=== PATIENT | female | born 1950 | race Caucasian/White ===

== ENCOUNTER → 2016-11-17 | Outpatient (CLI) | payer OTHER ==
[~2016-11-17] MED LIST: CYAN10002 IM; DIAZ-165 PO; DICL-201 PO; DICY10CA12 PO; EVS60 PO; HYDR-5688 PO; INSPMPHMLG; OMEG10007 PO
[2016-11-17 12:47] LABS: BLOOD UREA NITROGEN 25 mg/dl (7-18); CREATININE 0.98 mg/dl (0.60-1.20); GLUCOSE 233 mg/dl (70-99)
[2016-11-17 12:48] LABS: ALT/SGPT 22 U/L (12-78); AST/SGOT 20 U/L (15-37); BUN/CREATININE RATIO 25.8 (10-20); CALCIUM 9.5 mg/dl (8.5-10.1); CARBON DIOXIDE 31 mmol/L (21-32); CHLORIDE 101 mmol/L (98-107); CHOLESTEROL 229 mg/dl (0-200); POTASSIUM 4.2 mmol/L (3.5-5.1); SODIUM 137 mmol/L (136-145); TRIGLYCERIDES 84 mg/dl (0-150); VERY LOW DENSITY LIPOPROT CALC 17 mg/dl
[2016-11-17 12:50] LABS: ALKALINE PHOSPHATASE 79 U/L (45-117); CHOLESTEROL/HDL RATIO 2.4; HDL CHOLESTEROL 95 mg/dl; LDL CHOLESTEROL CALCULATED 117 mg/dl
[2016-11-17 12:54] LABS: ESTIMATED AVERAGE GLUCOSE 194 mg/dl; HA1C FLAG Normal (Normal)
== END | disposition home or self-care (01) ==
LOC: C.LAB1850 09:36
DX: E10.9 Type 1 diabetes mellitus without complications (principal)

== ENCOUNTER 2018-11-25 20:48 | Inpatient (IN) ==
[2018-11-25] MEDS ORDERED: SODIUM CHLORIDE 0.9% 1000ML 2,000 ML IV ONE (21:00)
[2018-11-25] MEDS ORDERED: FAMOTIDINE 20MG IV PUSH 20 MG/5 ML SYR IV STA (21:00)
[2018-11-25] MEDS ORDERED: ONDANSETRON INJ 2 MG/ML 2 ML VIAL IV STA (21:01)
[2018-11-25 21:34] LABS: iSTAT Hemoglobin 13.9 g/dl (12.0-16.0); iSTAT Ionized Calcium 1.03 mmol/l (1.12-1.32); iSTAT Potassium 4.7 mEq/L (3.3-5.0)
[2018-11-25 23:39] LABS: Hematocrit (blood only) 35.9 % (37-47); Hemoglobin 11.9 g/dL (12.0-16.0); Mean Corpuscular Hemoglobin 29.6 pg (25-34); Mean Corpuscular Hgb Conc 33.1 g/dL (32-36); Mean Corpuscular Volume 89.3 fL (80-100); Mean Platelet Volume 10.6 fL (7.4-10.4); Platelet Count 241 K/uL (130-400); RDW Coefficient of Variation 14.1 % (11.5-14.5); RDW Standard Deviation 46.2 fL (36.4-46.3); Red Blood Count 4.02 M/uL (4.2-5.4); White Blood Count 15.56 K/uL (4.8-10.8)
[2018-11-25 23:44] LABS: Base Excess VBG -6.2 mEq/L; HCO3 VBG 20 mmol/L; PCO2 VBG 43 mmHg (38-50); PO2 VBG 34 mmHg; pH VBG 7.29 (7.36-7.41)
--- NOTE | 2018-11-25 23:44 | Emergency Department Note ---
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 She notes that she was fine this morning. She states that he has diarrhea. She states that she has type 1 diabetes. She notes that her blood glucose level is 450 currently. She reports that it has been 4 hours since she last gave herself insulin. She denies any chest pain, blood in her urine, or shortness of breath. She notes that has a history of myocardial infarction and peptic ulcer. Home Medications Home Medications Medication Instructions Recorded Confirmed Type cyanocobalamin (vit B-12) 1,000 1,000 mcg SQ .COMPLEX 11/05/18 11/25/18 History mcg/mL injection solution diazepam 5 mg tablet 5 mg PO .COMPLEX PRN 11/05/18 11/25/18 History dicyclomine 10 mg capsule 10 mg PO DAILY cap 11/05/18 11/25/18 History hydrocodone 5 mg-acetaminophen 300 1 tab PO .COMPLEX PRN 11/05/18 11/25/18 History mg tablet insulin aspart U- 100 100 unit/mL See Rx Instructions SQ .COMPLEX 11/05/18 11/25/18 History subcutaneous solution omega-3 fatty acids 1,000 mg 1,000 mg PO DAILY 11/05/18 11/25/18 History capsule raloxifene 60 mg tablet 60 mg PO DAILY 11/05/18 11/25/18 History carisoprodol [Soma] 0 mg PO UD PRN 11/25/18 11/25/18 History diclofenac sodium 50 mg PO UD PRN 11/25/18 11/25/18 History Allergies Allergy/AdvReac Type Severity Reaction Status Date / Time Penicillins Allergy Unknown . Verified 11/25/18 23:04 promethazine Allergy Unknown . Verified 11/25/18 23:04 Sulfa (Sulfonamide AdvReac Unknown RASH,VOMITI Verified 11/25/18 23:04 Antibiotics) NG Past Med/Surg History Medical History Type 1 diabetes (Chronic) Social History Preferred Language: [place] Zeal[place] Feels Safe at Home: Yes Smoking Status: Never smoker Review of Systems See HPI for pertinent positives & negatives. and A total of 10 systems reviewed and were otherwise negative Physical Exam Vital Signs Vital Signs - 24 hr 11/25/18 20:52 11/25/18 20:55 11/25/18 21:00 Sepsis Recent Fever Within 48 Hours No Sepsis New/Unexplained Change in Mental Status No Sepsis Action Taken by Nursing No Action Required Pulse Rate 99 H 98 H Pulse Rate [Bilateral Apical] Respiratory Rate 14 20 Blood Pressure 102/55 L 102/55 L Blood Pressure [Left Arm] Blood Pressure Mean 70 70 Blood Pressure Mean [Left Arm] Pulse Oximetry 98 100 Oxygen Delivery Method Room Air Room Air Room Air 11/25/18 22:00 11/25/18 23:35 11/26/18 00:45 Sepsis Recent Fever Within 48 Hours Sepsis New/Unexplained Change in Mental Status Sepsis Action Taken by Nursing Pulse Rate 94 H Pulse Rate [Bilateral Apical] 101 H 106 H Respiratory Rate 15 18 20 Blood Pressure Blood Pressure [Left Arm] 98/55 L 95/45 L Blood Pressure Mean Blood Pressure Mean [Left Arm] 69 61 Pulse Oximetry 98 95 96 Oxygen Delivery Method Room Air Room Air Room Air 11/26/18 02:09 Sepsis Recent Fever Within 48 Hours Sepsis New/Unexplained Change in Mental Status Sepsis Action Taken by Nursing Pulse Rate Pulse Rate [Bilateral Apical] 118 H Respiratory Rate 20 Blood Pressure Blood Pressure [Left Arm] 99/48 L Blood Pressure Mean Blood Pressure Mean [Left Arm] 65 Pulse Oximetry 96 Oxygen Delivery Method Room Air GENERAL: Awake, alert, uncomfortable-appearing, in no distress HENT: Normocephalic, atraumatic. Oropharynx with dry mucous membranes and otherwise unremarkable. EYES: Normal conjunctiva. Sclera non-icteric. NECK: Supple. No nuchal rigidity. FROM. No JVD. RESPIRATORY: CTAB.. CARDIAC: Regular rate, normal rhythm. Extremities warm and well perfused. Pulses equal. ABDOMEN: Mild epigastric discomfort, without discrete tenderness. Soft, non- distended. No rebound or guarding. No masses. RECTAL: Deferred. MUSCULOSKELETAL: Chest examination reveals no tenderness. The back is symmetrical on inspection without obvious abnormality. There is no CVA tenderness to palpation. No joint edema. LOWER EXTREMITIES: Calves are equal size bilaterally and non-tender. No edema. No discoloration. NEURO: Normal sensorium. No sensory or motor deficits noted. SKIN: No rash or jaundice noted. Procedures EJ/Peripheral Line Arm R: Time Out Performed: Yes Skin Cleansed in Sterile Fashion: Yes Size (gauge): 20 IV Secured and Dressing Applied: Yes Patient Tolerated Procedure: well Additional Comments: Performed under dynamic US guidance. Difficult access requiring 5 attempts. Course 2053: The patient was evaluated in room B12B, and a complete history and physical examination were performed. 2339: Case was discussed with Dr. Hercules, [facility] hospitalist, who will evaluate the patient for admission. Administered Medications Ioversol (Optiray 320 100ml) 94 ml IV ONCE PRN PRN Reason: Interaction Checking Stop: 11/30/18 01:13 Last Admin: 11/26/18 01:14 Dose: 94 ml Documented by: [id number] Discontinued Medications Sodium Chloride (Nss 1000ml) 2,000 mls @ 999 mls/hr IV .Q2H1M ONE Stop: 11/25/18 23:00 Last Infusion: 11/26/18 00:16 Dose: 0 mls/hr Documented by: [id number] Admin: 11/25/18 21:22 Dose: 999 mls/hr Documented by: [id number] Famotidine (Pepcid 20mg Iv Push) 20 mg in 5 mls @ 2.5 mls/min IV NOW STA Stop: 11/25/18 21:01 Last Admin: 11/25/18 21:23 Dose: 2.5 mls/min Documented by: [id number] Sodium Chloride (Nss 1000ml) 1,000 mls @ 250 mls/hr IV .Q4H MALINA Stop: 12/25/18 23:44 Last Admin: 11/26/18 00:12 Dose: 250 mls/hr Documented by: [id number] Potassium Chloride (K Thom / Wtr) 10 meq in 100 mls @ 100 mls/hr IV Q2H MALINA Last Infusion: 11/26/18 01:24 Dose: 0 mls/hr Documented by: [id number] Admin: 11/26/18 00:11 Dose: 100 mls/hr Documented by: [id number] Prochlorperazine (Compazine) 2 mls @ 1 mls/min IV ONE ONE Stop: 11/26/18 00:15 Last Admin: 11/26/18 00:22 Dose: 1 mls/min Documented by: [id number] Sodium Chloride (Nss 1000ml) 1,000 mls @ 999 mls/hr IV .Q1H1M ONE Stop: 11/26/18 01:53 Last Admin: 11/26/18 01:54 Dose: 999 mls/hr Documented by: [id number] Calcium Gluconate 1,000 mg/ (Sodium Chloride) 60 mls @ 240 mls/hr IV NOW STA Stop: 11/26/18 01:08 Last Infusion: 11/26/18 02:05 Dose: 0 mls/hr Documented by: [id number] Admin: 11/26/18 01:21 Dose: 240 mls/hr Documented by: [id number] Ondansetron HCl (Zofran) 4 mg IV NOW STA Stop: 11/25/18 21:02 Last Admin: 11/25/18 21:23 Dose: 4 mg Documented by: [id number] Medical Decision Making Differential Diagnosis Differential diagnosis: Etiologies such as gastroenteritis, food borne illness, infections, appendicitis, diverticulitis, inflammatory bowel disease, obstruct ion, GI bleed, biliary pathology, as well as others were entertained. Medical Records Attestation: I reviewed the patient's medical records. Home Medications Current Medication List: was personally reviewed by me Laboratory Data Attestation: I reviewed the patient's lab results. Result diagrams: 11/25/18 23:27 11/25/18 23:27 Lab Results 11/25/18 11/25/18 11/25/18 Range/Units 21:20 23:27 23:27 WBC 15.56 H (4.8-10.8) K/uL RBC 4.02 L (4.2-5.4) M/uL Hgb 11.9 L (12.0-16.0) g/dL POC Hgb 13.9 (12.0-16.0) g/dl Hct 35.9 L (37-47) % POC Hct 41 (37-47) % MCV 89.3 (80-100) fL MCH 29.6 (25-34) pg MCHC 33.1 (32-36) g/dL RDW Std Deviation 46.2 (36.4-46.3) fL RDW Coeff of Maria Del Carmen 14.1 (11.5-14.5) % Plt Count 241 (130-400) K/uL MPV 10.6 H (7.4-10.4) fL Immature Gran % (Auto) 0.3 % Neut % (Auto) 89.7 % Lymph % (Auto) 4.4 % Polk % (Auto) 5.5 % Eos % (Auto) 0.0 % Baso % (Auto) 0.1 % Reticulocyte % (Auto) 1.7 (0.5-2.0) % Immature Gran # (Auto) 0.05 H (0.00-0.02) K/uL Neut # (Auto) 13.96 H (1.4-6.5) K/uL Lymph # (Auto) 0.68 L (1.2-3.4) K/uL Polk # (Auto) 0.86 H (0.11-0.59) K/uL Eos # (Auto) 0.00 (0-0.5) K/uL Baso # (Auto) 0.01 (0-0.2) K/uL Reticulocyte # 0.07 (0.02-0.10) 10^6/uL Absolute Nucleated RBC 0.00 (0-0) K/uL Nucleated RBC % (auto) 0.0 % VBG pH (7.36-7.41) VBG pCO2 (38-50) mmHg VBG pO2 mmHg VBG HCO3 mmol/L VBG O2 Saturation % VBG Base Excess mEq/L Barometric Pressure mm/Hg POC Sodium 134 L (135-144) mEq/L Sodium 138 (136-145) mmol/L POC Potassium 4.7 (3.3-5.0) mEq/L Potassium 4.8 (3.5-5.1) mmol/L POC Chloride 98 L (101-112) mEq/L Chloride 104 (98-107) mmol/L Carbon Dioxide 21 (21-32) mmol/L POC Total CO2 25 (24-31) mEq/l Anion Gap 13.0 H (3-11) POC Anion Gap 18.0 (16-25) mmol/L POC BUN 42 H (7-18) mg/dl BUN 33 H (7-18) mg/dl Creatinine 1.19 (0.6-1.2) mg/dl POC Creatinine 1.0 (0.6-1.3) mg/dl Est Cr Clr Drug Dosing Not Reportable Est GFR ( Amer) 55.1 Est GFR (Non-Af Amer) 47.5 BUN/Creatinine Ratio 27.5 H (10-20) Glucose 465 H* (70-99) mg/dl POC Glucose (other) 478 H* (70-99) mg/dl Calcium 8.4 L (8.5-10.1) mg/dl POC Ioniz Calcium Wallace 1.03 L (1.12-1.32) mmol/l Phosphorus 5.0 H (2.5-4.9) mg/dl Magnesium 2.3 (1.8-2.4) mg/dl Iron 90 (35-150) mcg/dl TIBC 319 (250-450) mcg/dl Transferrin 255 (200-360) mg/dl Ferritin 24.9 (8-388) ng/ml Total Bilirubin 0.7 (0.2-1) mg/dl Direct Bilirubin 0.3 H (0-0.2) mg/dl AST 13 L (15-37) U/L ALT 14 (12-78) U/L Alkaline Phosphatase 82 (45-117) U/L Troponin I < 0.015 (0-0.045) ng/ml Total Protein 6.2 L (6.4-8.2) gm/dl Albumin 3.4 (3.4-5.0) gm/dl Globulin 2.8 (2.5-4.0) gm/dl Albumin/Globulin Ratio 1.2 (0.9-2) Lipase 44 L (73-393) U/L Beta-Hydroxybutyric Acd 14.39 H (0.2-2.81) mg/dl Procalcitonin (0-0.5) ng/ml TSH 0.407 (0.300-4.500) uIu/ml Urine Color Urine Appearance (Clear) Urine pH (4.5-7.5) Ur Specific Brandon (1.000-1.030) Urine Protein (Negative) Urine Glucose (UA) (Negative) Urine Ketones (Negative) Urine Blood (Negative) Urine Nitrite (Negative) Urine Bilirubin (Negative) Urine Urobilinogen (Negative) Ur Leukocyte Esterase (Negative) Urine WBC (Auto) (0-5) /hpf Urine RBC (Auto) (0-4) /hpf U Hyaline Cast (Auto) (0-5) /lpf U Epithel Cells (Auto) (0-5) /lpf Urine Bacteria (Auto) (Negative) 11/25/18 11/25/18 11/26/18 Range/Units 23:27 23:28 01:20 WBC (4.8-10.8) K/uL RBC (4.2-5.4) M/uL Hgb (12.0-16.0) g/dL POC Hgb (12.0-16.0) g/dl Hct (37-47) % POC Hct (37-47) % MCV (80-100) fL MCH (25-34) pg MCHC (32-36) g/dL RDW Std Deviation (36.4-46.3) fL RDW Coeff of Maria Del Carmen (11.5-14.5) % Plt Count (130-400) K/uL MPV (7.4-10.4) fL Immature Gran % (Auto) % Neut % (Auto) % Lymph % (Auto) % Polk % (Auto) % Eos % (Auto) % Baso % (Auto) % Reticulocyte % (Auto) (0.5-2.0) % Immature Gran # (Auto) (0.00-0.02) K/uL Neut # (Auto) (1.4-6.5) K/uL Lymph # (Auto) (1.2-3.4) K/uL Polk # (Auto) (0.11-0.59) K/uL Eos # (Auto) (0-0.5) K/uL Baso # (Auto) (0-0.2) K/uL Reticulocyte # (0.02-0.10) 10^6/uL Absolute Nucleated RBC (0-0) K/uL Nucleated RBC % (auto) % VBG pH 7.29 L (7.36-7.41) VBG pCO2 43 (38-50) mmHg VBG pO2 34 mmHg VBG HCO3 20 mmol/L VBG O2 Saturation < 60.0 % VBG Base Excess -6.2 mEq/L Barometric Pressure 735.4 mm/Hg POC Sodium (135-144) mEq/L Sodium (136-145) mmol/L POC Potassium (3.3-5.0) mEq/L Potassium (3.5-5.1) mmol/L POC Chloride (101-112) mEq/L Chloride (98-107) mmol/L Carbon Dioxide (21-32) mmol/L POC Total CO2 (24-31) mEq/l Anion Gap (3-11) POC Anion Gap (16-25) mmol/L POC BUN (7-18) mg/dl BUN (7-18) mg/dl Creatinine (0.6-1.2) mg/dl POC Creatinine (0.6-1.3) mg/dl Est Cr Clr Drug Dosing Est GFR ( Amer) Est GFR (Non-Af Amer) BUN/Creatinine Ratio (10-20) Glucose (70-99) mg/dl POC Glucose (other) (70-99) mg/dl Calcium (8.5-10.1) mg/dl POC Ioniz Calcium Wallace (1.12-1.32) mmol/l Phosphorus (2.5-4.9) mg/dl Magnesium (1.8-2.4) mg/dl Iron (35-150) mcg/dl TIBC (250-450) mcg/dl Transferrin (200-360) mg/dl Ferritin (8-388) ng/ml Total Bilirubin (0.2-1) mg/dl Direct Bilirubin (0-0.2) mg/dl AST (15-37) U/L ALT (12-78) U/L Alkaline Phosphatase (45-117) U/L Troponin I (0-0.045) ng/ml Total Protein (6.4-8.2) gm/dl Albumin (3.4-5.0) gm/dl Globulin (2.5-4.0) gm/dl Albumin/Globulin Ratio (0.9-2) Lipase (73-393) U/L Beta-Hydroxybutyric Acd (0.2-2.81) mg/dl Procalcitonin 18.67 H (0-0.5) ng/ml TSH (0.300-4.500) uIu/ml Urine Color Yellow Urine Appearance Clear (Clear) Urine pH 5.0 (4.5-7.5) Ur Specific Brandon 1.024 (1.000-1.030) Urine Protein Negative (Negative) Urine Glucose (UA) 3+ H (Negative) Urine Ketones 2+ H (Negative) Urine Blood Negative (Negative) Urine Nitrite Negative (Negative) Urine Bilirubin Negative (Negative) Urine Urobilinogen Negative (Negative) Ur Leukocyte Esterase Trace H (Negative) Urine WBC (Auto) 10-30 H (0-5) /hpf Urine RBC (Auto) 0-4 (0-4) /hpf U Hyaline Cast (Auto) 0 (0-5) /lpf U Epithel Cells (Auto) 20-30 H (0-5) /lpf Urine Bacteria (Auto) Negative (Negative) ECG Data Attestation: I personally reviewed and interpreted this ECG as follows: Indication: vomiting Rate (beats per minute): 90 Rhythm: normal sinus Findings: + LAFB and + nonspecific-ST abn; no acute ischemic change Comparison ECG Date: from (09/22/15) Change: no significant change Blood Pressure Blood Pressure Findings: Low blood pressure MDM Narrative The patient is a pleasant 68-year-old woman with a past medical history of IDDM 1 with insulin pump who presents emergency department with nausea vomiting diarrhea that began today with subsequent elevation in her blood sugars and ketones in her urine per hpi. On arrival patient is uncomfortable but no acute distress, afebrile with HR 90s with BP 90-100s/50s and stable. The patient appears clinically dry. EKG with left anterior fascicular block similar to prior EKGs and otherwise without overt acute ischemia. Chest x-ray without acute process per my preliminary review. She was very difficult to obtain lab work and IV access initially however i-STAT chemistry was obtained and did not demonstrate any metabolic acidosis, despite elevated glucose in the 400s. Ultimately IV access obtained after repeated attempts with ultrasound-guided peripheral IV. W BC 15.5, nonspecific. H/H 11.9/35.9. VBG with slight acidemia with pH of 7.29. Full lab chemistry still pending. However, patient does feel some improvement after initial hydration with 2 L of normal saline Zofran and Pepcid. However she does feel still slightly nauseated and uncomfortable about the possibility of going home. Given the patient's symptoms and near DKA reasonable to admit the patient for further management. Lab chemistry resulting with glucose still 400s despite patient providing herself with 8 unit bolus from her pump. Bicarb 21 and Agap 13. BHB 14.3. Patient ordered from NS with KCl. Case was discussed with Dr. Hercules, [facility] hospitalist, who will evaluate the patient for admission. Insulin therapy per admitting team pending further discussion with patient. Impression & Plan DKA (diabetic ketoacidoses), Gastroenteritis Discharge Plan Visit Data Chief Complaint: Illness ED Provider: Darío Pitt Discharge Problem: DKA (diabetic ketoacidoses), Gastroenteritis Discharge Instructions Interventions: ED Discharge Assessment Last Done: 11/26/18 02:18 Forms Stand Alone Forms: My [facility] Medical Prescriptions Prescriptions: No Action dicyclomine 10 mg capsule 10 mg PO DAILY RF: 0 raloxifene [Evista] 60 mg tablet 60 mg PO DAILY RF: 0 hydrocodone-acetaminophen [Vicodin] 5-300 mg tablet 1 tab PO .COMPLEX PRN (Reason: Pain) RF: 0 diazepam 5 mg tablet 5 mg PO .COMPLEX PRN (Reason: Anxiety) RF: 0 omega-3 fatty acids 1,000 mg capsule 1,000 mg PO DAILY RF: 0 cyanocobalamin (vitamin B-12) 1,000 mcg/mL solution 1,000 mcg SQ .COMPLEX RF: 0 Novolog U-100 Insulin aspart 100 unit/mL solution See Patient Comments SQ .COMPLEX RF: 0 diclofenac sodium 50 mg Tablet,Delayed Release (Dr/Ec) 50 mg PO UD PRN (Reason: Pain) RF: 0 carisoprodol [Soma] 250 mg Tablet PO UD PRN (Reason: MUSCLE SPASMS) RF: 0 Referrals Referrals: Hawa Vera DO [Primary Care Provider] - Discharge Problem: DKA (diabetic ketoacidoses) Qualifiers: Diabetes mellitus type: type 1 Diabetes mellitus complication detail: without coma Qualified Code(s): E10.10 - Type 1 diabetes mellitus with ketoacidosis without coma The scribe's documentation has been prepared under my direction and personally reviewed by me in its entirety. I confirm that the note above accurately reflects all work, treatment, procedures, and medical decision making performed by me.
[2018-11-25] MEDS ORDERED: POTASSIUM CHLORIDE / WTR 10 MEQ/100 ML PLCT IV SCH (23:45)
[2018-11-25] MEDS ORDERED: SODIUM CHLORIDE 0.9% 1000ML 1,000 ML IV SCH (23:45)
[2018-11-25 23:49] LABS: Oxygen Saturation VBG < 60.0 %
[2018-11-26 00:05] LABS: Basophils # (auto) 0.01 K/uL (0-0.2); Basophils % (auto) 0.1 %; Immature Granulocytes # (auto) 0.05 K/uL (0.00-0.02); Immature Granulocytes % (auto) 0.3 %; Lymphocytes # (auto) 0.68 K/uL (1.2-3.4); Lymphocytes % (auto) 4.4 %; Monocytes # (auto) 0.86 K/uL (0.11-0.59); Monocytes % (auto) 5.5 %; Neutrophils # (auto) 13.96 K/uL (1.4-6.5); Neutrophils % (auto) 89.7 %
[2018-11-26 00:07] LABS: Reticulocyte % 1.7 % (0.5-2.0); Reticulocytes # 0.07 10^6/uL (0.02-0.10)
[2018-11-26 00:08] LABS: Alanine Aminotransferase 14 U/L (12-78); Albumin Globulin Ratio 1.2 (0.9-2); Albumin Level 3.4 gm/dl (3.4-5.0); Alkaline Phosphatase 82 U/L (45-117); Aspartate Aminotransferase 13 U/L (15-37); BUN Creatinine Ratio 27.5 (10-20); Bilirubin Direct 0.3 mg/dl (0-0.2); Bilirubin,Total 0.7 mg/dl (0.2-1); Blood Urea Nitrogen 33 mg/dl (7-18); Calcium 8.4 mg/dl (8.5-10.1); Carbon Dioxide 21 mmol/L (21-32); Chloride 104 mmol/L (98-107); Est GFR (African American) 55.1; Est GFR (Non-African American) 47.5; Globulin 2.8 gm/dl (2.5-4.0); Glucose 465 mg/dl (70-99); Lipase 44 U/L (73-393); Magnesium 2.3 mg/dl (1.8-2.4); Potassium 4.8 mmol/L (3.5-5.1); Sodium 138 mmol/L (136-145); Total Protein 6.2 gm/dl (6.4-8.2); Troponin I < 0.015 ng/ml (0-0.045)
[2018-11-26] MEDS ORDERED: PROCHLORPERAZINE 2 ML IV ONE (00:14)
[2018-11-26] MEDS ORDERED: FAMOTIDINE 20MG/5ML IV PUSH IV STA (00:19)
[2018-11-26 00:24] LABS: Beta-Hydroxybutyrate 14.39 mg/dl (0.2-2.81); Ferritin 24.9 ng/ml (8-388); Iron 90 mcg/dl (35-150); Thyroid Stimulating Hormone 0.407 uIu/ml (0.300-4.500); Total Iron Binding Capacity 319 mcg/dl (250-450); Transferrin 255 mg/dl (200-360)
[2018-11-26] MEDS ORDERED: FAMOTIDINE 20MG/5ML IV PUSH IV ONE (00:32)
[2018-11-26] MEDS ORDERED: SODIUM CHLORIDE 0.9% 1000ML 1,000 ML IV ONE ×3 (00:53→07:04)
[2018-11-26] MEDS ORDERED: CALCIUM GLUCONATE 10% 1,000 MG in SODIUM CHLORIDE 0.9% 50 ML IV STA (00:54)
[2018-11-26] MEDS ORDERED: IOVERSOL 100ml IV PRN (01:14)
--- NOTE | 2018-11-26 01:43 | History & Physical Report ---
Date of Service November 26, 2018 Assessment & Plan (1) Hypotension: Secondary to hypovolemia secondary to acute gastroenteritis ? Bowel ischemia on CT, possible sepsis given elevated procalcitonin Hyperglycemic crisis secondary to above DM1 on insulin pump Reasonable control as of recent outpatient hemoglobin A1c of 8 last October 2018 CAD as per records, not on aspirin prophylaxis as per patient preference secondary to PUD Esophagitis on CT Episodic anemia, hx pernicious anemia as per records Medical telemetry IVF Cultures, check lactic acid Ertapenem for now for possible bowel sepsis N.p.o. for now Surgery consult RE abdominal pain, mesenteric edema on CT Pharmacy glycemic control consult Famotidine for esophagitis Anemia work-up (of note patient is a Yarsani) DVT prophylaxis Lovenox subcu Full code Total critical care time was 50 minutes. History of Present Illness Chief Complaint: Abdominal pain Primary Care Provider: Hawa Vera DO History obtained from patient and records. Medical history significant for DM1 on insulin pump, CAD as per records, PUD as per records, pernicious anemia as per records. Recent confinement September 2015 for mild DKA. After an oatmeal breakfast this morning, patient noted burning epigastric discomfort followed by nausea, bilious emesis. Nonbloody loose stools. No ch est pain, no S OB, no cough. No fever, some chills. Possible sick contacts. BSG is at home later noted to be 400s. 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 Verified 11/25/18 23:04 promethazine Allergy Unknown . Verified 11/25/18 23:04 Sulfa (Sulfonamide AdvReac Unknown RASH,VOMITI Verified 11/25/18 23:04 Antibiotics) NG Home Medications Home Medications Medication Instructions Recorded Confirmed Type cyanocobalamin (vit B-12) 1,000 1,000 mcg SQ .COMPLEX 11/05/18 11/25/18 History mcg/mL injection solution diazepam 5 mg tablet 5 mg PO .COMPLEX 11/05/18 11/25/18 History dicyclomine 10 mg capsule 10 mg PO DAILY cap 11/05/18 11/25/18 History hydrocodone 5 mg-acetaminophen 300 1 tab PO .COMPLEX PRN 11/05/18 11/25/18 History mg tablet insulin aspart U- 100 100 unit/mL See Rx Instructions SQ .COMPLEX 11/05/18 11/25/18 History subcutaneous solution omega-3 fatty acids 1,000 mg 1,000 mg PO DAILY 11/05/18 11/25/18 History capsule raloxifene 60 mg tablet 60 mg PO DAILY 11/05/18 11/25/18 History carisoprodol [Soma] 0 mg PO UD PRN 11/25/18 11/25/18 History diclofenac sodium 50 mg PO UD PRN 11/25/18 11/25/18 History Past Med/Surg History Medical History Type 1 diabetes (Chronic) H/O: hysterectomy Surgical History History of appendectomy Hx of cholecystectomy Social History Preferred Language: Bel[place] Communication Ability: Effective Coding Educator Required: No Beliefs That Will Affect Care: Congregation Congregation Beliefs: Yarsani Current Living Situation: Alone Other Information That Helps Us Care for You: No Feels Safe at Home: Yes Safety Concerns: Feels Safe At This Time Smoking Status: Never smoker Hx Alcohol Use: No Hx Substance Use: No Review of Systems Review of Systems: As per HPI, all 10 systems reviewed, all other ROS negative Physical Exam Physical Exam: GENERAL: Slightly uncomfortable, wane, speaking in a very low voice, no respiratory distress SKIN: Head neck arms noted to be tanned, warm HEENT: [place] palpebral conjunctivae, no ptosis, chronic jaw asymmetry, dry buccal mucosa NECK : Supple, no tenderness CHEST : CTA, no tenderness HEART : Tachycardic, no obvious murmurs ABDOMEN: Some distention, central abdominal tenderness RECTAL : Intact sphincter, yellow stool (FOBT negative) EXTREMITIES : No LE swelling/tenderness, no other conspicuous deformities noted NEUROLOGIC : Coherent, chronic lower facial symmetry more prominent during patient speech , no other gross focality Results & Data Vital Signs (Past 12 Hours) Vital Signs Pulse Pulse Resp BP BP Pulse Ox 11/26/18 00:45 106 H 20 95/45 L 96 11/25/18 23:35 101 H 18 98/55 L 95 11/25/18 22:00 94 H 15 98 11/25/18 20:55 98 H 20 102/55 L 100 11/25/18 20:52 99 H 14 102/55 L 98 Laboratory Results Laboratory Results WBC 15.56 K/uL (4.8-10.8) H 11/25/18 23: RBC 4.02 M/uL (4.2-5.4) L 11/25/18 23:27 Hgb 11.9 g/dL (12.0-16.0) L 11/25/18 23: POC Hgb 13.9 g/dl (12.0-16.0) 11/25/18 21:20 Hct 35.9 % (37-47) L 11/25/18 23: POC Hct 41 % (37-47) 11/25/18 21:20 MCV 89.3 fL (80-100) 11/25/18 23: MCH 29.6 pg (25-34) 11/25/18 23: MCHC 33.1 g/dL (32-36) 11/25/18 23: RDW Std Deviation 46.2 fL (36.4-46.3) 11/25/18 23: RDW Coeff of [place] Carm[place] 14.1 % (11.5-14.5) 11/25/18: Plt Count 241 K/uL (130-400) 11/25/18 23: MPV 10.6 fL (7.4-10.4) H 11/25/18 23:27 Immature Gran % (Auto) 0.3 % 11/25/18 23: Neut % (Auto) 89.7 % 11/25/18 23: Lymph % (Auto) 4.4 % 11/25/18 23: [place] % (Auto) 5.5 % 11/25/18 23:27 Eos % (Auto) 0.0 % 11/25/18 23: Baso % (Auto) 0.1 % 11/25/18: Reticulocyte % (Auto) 1.7 % (0.5-2.0) 11/25/18 23: Immature Gran # (Auto) 0.05 K/uL (0.00-0.02) H 11/25/18 23: Neut # (Auto) 13.96 K/uL (1.4-6.5) H 11/25/18 23: Lymph # (Auto) 0.68 K/uL (1.2-3.4) L 11/25/18: [place] # (Auto) 0.86 K/uL (0.11-0.59) H 11/25/18: Eos # (Auto) 0.00 K/uL (0-0.5) 11/25/18: Baso # (Auto) 0.01 K/uL (0-0.2) 11/25/18: Reticulocyte # 0.07 10^6/uL (0.02-0.10) 11/25/18: Absolute Nucleated RBC 0.00 K/uL (0-0) 11/25/18 Nucleated RBC % (auto) 0.0 % 11/25/18 VBG pH 7.29 (7.36-7.41) L 11/25/18: VBG pCO2 43 mmHg (38-50) 11/25/18: VBG pO2 34 mmHg 11/25/18: VBG HCO3 20 mmol/L 11/25/18: VBG O2 Saturation < 60.0 % 11/25/18 VBG Base Excess -6.2 mEq/L 11/25/18 Barometric Pressure 735.4 mm/Hg 11/25/18: POC Sodium 134 mEq/L (135-144) L 11/25/18 21:20 Sodium 138 mmol/L (136-145) 11/25/18 23: POC Potassium 4.7 mEq/L (3.3-5.0) 11/25/18 21:20 Potassium 4.8 mmol/L (3.5-5.1) 11/25/18: POC Chloride 98 mEq/L (101-112) L 11/25/18 21:20 Chloride 104 mmol/L (98-107) 11/25/18: Carbon Dioxide 21 mmol/L (21-32) 11/25/18: POC Total CO2 25 mEq/l (24-31) 11/25/18 21:20 Anion Gap 13.0 (3-11) H 11/25/18: POC Anion Gap 18.0 mmol/L (16-25) 11/25/18 21:20 POC BUN 42 mg/dl (7-18) H 11/25/18 21:20 BUN 33 mg/dl (7-18) H 11/25/18 23:27 Creatinine 1.19 mg/dl (0.6-1.2) 11/25/18 23:27 POC Creatinine 1.0 mg/dl (0.6-1.3) 11/25/18 21:20 Est Cr Clr Drug Dosing Not Reportable 11/25/18 23:27 Est GFR ( Amer) 55.1 11/25/18 23:27 Est GFR (Non-Af Amer) 47.5 11/25/18 23:27 BUN/Creatinine Ratio 27.5 (10-20) H 11/25/18 23:27 Glucose 465 mg/dl (70-99) H* 11/25/18 23:27 POC Glucose (other) 478 mg/dl (70-99) H* 11/25/18 21:20 Calcium 8.4 mg/dl (8.5-10.1) L 11/25/18 23:27 POC Ioniz Calcium Wallace 1.03 mmol/l (1.12-1.32) L 11/25/18 21:20 Phosphorus 5.0 mg/dl (2.5-4.9) H 11/25/18 23:27 Magnesium 2.3 mg/dl (1.8-2.4) 11/25/18 23:27 Iron 90 mcg/dl (35-150) 11/25/18 23:27 TIBC 319 mcg/dl (250-450) 11/25/18 23:27 Transferrin 255 mg/dl (200-360) 11/25/18 23:27 Ferritin 24.9 ng/ml (8-388) 11/25/18 23:27 Total Bilirubin 0.7 mg/dl (0.2-1) 11/25/18 23:27 Direct Bilirubin 0.3 mg/dl (0-0.2) H 11/25/18 23:27 AST 13 U/L (15-37) L 11/25/18 23:27 ALT 14 U/L (12-78) 11/25/18 23:27 Alkaline Phosphatase 82 U/L (45-117) 11/25/18 23:27 Troponin I < 0.015 ng/ml (0-0.045) 11/25/18 23: Total Protein 6.2 gm/dl (6.4-8.2) L 11/25/18 23: Albumin 3.4 gm/dl (3.4-5.0) 11/25/18: Globulin 2.8 gm/dl (2.5-4.0) 11/25/18 23: Albumin/Globulin Ratio 1.2 (0.9-2) 11/25/18 23: Lipase 44 U/L (73-393) L 11/25/18 23: Beta-Hydroxybutyric Acd 14.39 mg/dl (0.2-2.81) H 11/25/18: TSH 0.407 uIu/ml (0.300-4.500) 11/25/18 23:27 Diagnostic Findings Chest x-ray as per my interpretation cardiomegaly EKG as per my interpretation : Rate 90, LAD, LAFB, T wave flattening lateral leads CT abdomen pelvis initial read hepatic steatosis. Status post hysterectomy. No adnexal masses. Small amount of free fluid pelvis nonspecific. Mild mesenteric edema and fat stranding throughout the abdomen pelvis of unknown etiology. No abscess normal appendix. No bowel wall thickening or obstruction. Distal esophagitis. Diffuse demineralization of bones with trabecular thickening in the pelvic bones/posterior elements of lower spine possible Paget's disease.
[2018-11-26] MEDS ORDERED: SODIUM CHLORIDE 0.9% 1000ML 1,000 ML IV SCH (02:01)
[2018-11-26 02:15] LABS: Appearance Urine Clear (Clear); Bacteria Urine Automated Negative (Negative); Bilirubin Urine Negative (Negative); Blood Urine Negative (Negative); Cast Urine Automated 0 /lpf (0-5); Color Urine Yellow; Epithelial Cell Urine Auto 20-30 /lpf (0-5); Glucose Urine UA 3+ (Negative); Ketones Urine 2+ (Negative); Leukocyte Esterase Urine Trace (Negative); Nitrite Urine Negative (Negative); Protein Urine Negative (Negative); RBC Urine Automated 0-4 /hpf (0-4); Specific Gravity Urine 1.024 (1.000-1.030); Urobilinogen Urine Negative (Negative)
[2018-11-26] MEDS ORDERED: PHARMACY GLYCEMIC MGMT CONSULT PRN (02:47)
[2018-11-26] MEDS ORDERED: HYDROmorphone INJ 0.5 MG/0.5 ML SYR IV PRN (02:52)
[2018-11-26] MEDS ORDERED: ACETAMINOPHEN 325 MG TAB PO PRN (02:52)
[2018-11-26] MEDS ORDERED: LORazepam 0.25 MG/0.5 ML VIAL IV PRN (02:52)
[2018-11-26] MEDS ORDERED: NITROGLYCERIN SL 0.4 MG/TAB TAB SL PRN (02:52)
[2018-11-26] MEDS ORDERED: ERTAPENEM SODIUM 1,000 MG in SODIUM CHLORIDE 0.9% 50 ML IV SCH (03:00)
[2018-11-26] MEDS ORDERED: HYDROCODONE/ACETAMOPHEN 5/325MG TAB PO PRN (03:00)
--- NOTE | 2018-11-26 03:01 | Surgery Consultation ---
Date of Consultation November 26, 2018 Assessment & Plan (1) DKA (diabetic ketoacidoses): Plan as per medicine Present on Admission?: Yes (2) Abdominal pain: 68 yr old diabetic women with abdominal pain/ nausea / vomiting/ diarrhea as well as friends with similar symptoms. Mild hypotension/ tachycardia c/w volume depletion. Leukocytosis. No evidence of acute abdomen on exam. CT scan shows mild mesenteric edema - nonspecific finding which can be seen with multiple etiologies. Would treat conservatively for now with IVF resuscitation, management of diabetic ketoacidosis, npo/ bowel rest, IV antibiotics emperically. Should symptoms fail to improve, could consider CT angio to get a better look at mesenteric vessels as mesenteric vessel thrombosis can be a cause of mesenteric edema. Present on Admission?: Yes History of Present Illness Reason for Consultation: abdominal pain Requesting Physician: Jean-Claude Ray Attending Physician: Jean-Claude Bojorquez History of Present Illness 68 yr old diabetic women who presents with generalized abdominal pain since 11 am. 6-7/ 10 in intensity, cramping, burning, aching waves of pain, associated with diarrhea, nausea and vomiting. Initially vomited old food (oatmeal) but then progressed to bilious. No fevers. Never had any similar symptoms prior. No exacerbating or relieving factors. Came to ER and CT scan showed mild mesenteric edema. Currently, pain better on medications. Sugars were elevated to the 400s. Notes that a few friends of her also were sick with something similar. While they did not eat the same thing, they had all been together recently. Allergies Allergy/AdvReac Type Severity Reaction Status Date / Time Penicillins Allergy Unknown . Verified 11/25/18 23:04 promethazine Allergy Unknown . Verified 11/25/18 23:04 Sulfa (Sulfonamide AdvReac Unknown RASH,VOMITI Verified 11/25/18 23:04 Antibiotics) NG Home Medications Home Medications Medication Instructions Recorded Confirmed Type cyanocobalamin (vit B-12) 1,000 1,000 mcg SQ .COMPLEX 11/05/18 11/25/18 History mcg/mL injection solution diazepam 5 mg tablet 5 mg PO .COMPLEX PRN 11/05/18 11/25/18 History dicyclomine 10 mg capsule 10 mg PO DAILY cap 11/05/18 11/25/18 History hydrocodone 5 mg-acetaminophen 300 1 tab PO .COMPLEX PRN 11/05/18 11/25/18 History mg tablet insulin aspart U- 100 100 unit/mL See Rx Instructions SQ .COMPLEX 11/05/18 11/25/18 History subcutaneous solution omega-3 fatty acids 1,000 mg 1,000 mg PO DAILY 11/05/18 11/25/18 History capsule raloxifene 60 mg tablet 60 mg PO DAILY 11/05/18 11/25/18 History carisoprodol [Soma] 0 mg PO UD PRN 11/25/18 11/25/18 History diclofenac sodium 50 mg PO UD PRN 11/25/18 11/25/18 History Patient History Medical History Type 1 diabetes (Chronic) H/O: hysterectomy Surgical History History of appendectomy Hx of cholecystectomy Social History Preferred Language: Divehi Feels Safe at Home: Yes Smoking Status: Never smoker Review of Systems Review of Systems: All systems reviewed & are unremarkable except as noted in HPI & below Physical Exam Constitutional: WD/WN, vitals as above tachycardic and mild hypotension ENMT: external ear and nose normal, oropharynx normal Neck: trachea midline Respiratory: normal respiratory effort, lungs clear to auscultation Cardiovascular: Rate/Rhythm: regular rhythm and + tachycardic Heart Sounds: no murmur Gastrointestinal (Abdomen): Inspection/Auscultation: abdomen normal to inspection and normal bowel sounds Percussion/Palpation: + abdomen tender (mild) and abdomen soft; no guarding, no hepatomegaly, no splenomegaly and no hernia well healed incisions from prior procedures Neurologic: moves all extremities Psychiatric: A+Ox3, euthymic affect Results & Data Vital Signs (Past 12 Hours) Vital Signs Pulse Pulse Resp BP BP Pulse Ox 11/26/18 02:09 118 H 20 99/48 L 96 11/26/18 00:45 106 H 20 95/45 L 96 11/25/18 23:35 101 H 18 98/55 L 95 11/25/18 22:00 94 H 15 98 11/25/18 20:55 98 H 20 102/55 L 100 11/25/18 20:52 99 H 14 102/55 L [address] 15.56, H/H normal glucose 465 PO4 5.0 LFTs, lipase OK Diagnostic Findings CT scan reviewed / stat read reviewed: no sign of obstruction with normal bowel gas pattern, no free air, there is mild mesenteric edema. On my exam, celiac, sma appear patent. no obvious thrombosis seen. (1) DKA (diabetic ketoacidoses) Diabetes mellitus complication detail: without coma Diabetes mellitus type: type 1 Qualified Code(s): E10.10 - Type 1 diabetes mellitus with ketoacidosis without coma
[2018-11-26] MEDS ORDERED: INSULIN PROTOCOL GOAL RANGE ONE (03:02)
[2018-11-26] MEDS ORDERED: MODERATE STRESS LEVEL ONE (03:02)
[2018-11-26] MEDS ORDERED: CARBOHYDRATES FOR HYPOGLYCEMIA PO PRN (03:15)
[2018-11-26] MEDS ORDERED: GLUCAGON FOR INJ 1 MG VIAL IM PRN (03:15)
[2018-11-26] MEDS ORDERED: GLUCOSE 10 TABS/TUBE PO PRN (03:15)
[2018-11-26] MEDS ORDERED: DEXTROSE 50% 50 ML SYRINGE IV PRN (03:15)
[2018-11-26] MEDS ORDERED: INSULIN HUMAN REGULAR IV BOLUS 2 UNITS in SYRINGE 0 ML IV ONE (03:15)
[2018-11-26] MEDS ORDERED: GLUCOSE 40% GEL 15 GM TUBE PO PRN (03:15)
[2018-11-26] MEDS ORDERED: D5W AND LACTATED RINGERS 1,000 ML IV PRN ×2 (03:30)
[2018-11-26] MEDS: INSULIN REGULAR 250 UNITS in SODIUM CHLORIDE 0.9% 247.5 ML IV SCH (03:51)
--- NOTE | 2018-11-26 05:40 | XRay Report ---
XR chest 1V portable CLINICAL HISTORY: 68 years-old Female presenting with Chest Pain. TECHNIQUE: Portable upright AP view of the chest was obtained. COMPARISON: 09/22/2015. FINDINGS: Atherosclerosis of the aortic arch. Cardiac silhouette mildly enlarged. No focal opacity. No large ef fusion or pneumothorax. Osteopenia suspected. Upper abdomen normal. IMPRESSION: 1. Mild cardiomegaly. No other convincing evidence of acute cardiopulmonary disease. Electronically signed by: Ron Gaitan M.D. 11/26/2018 5:39 AM
[2018-11-26 06:13] LABS: Basophils # (auto) 0.02 K/uL (0-0.2); Basophils % (auto) 0.1 %; Eosinophils # (auto) 0.01 K/uL (0-0.5); Eosinophils % (auto) 0.1 %; Hematocrit (blood only) 32.4 % (37-47); Hemoglobin 10.7 g/dL (12.0-16.0); Immature Granulocytes % (auto) 0.6 %; Lymphocytes # (auto) 1.12 K/uL (1.2-3.4); Lymphocytes % (auto) 6.4 %; Mean Corpuscular Volume 90.8 fL (80-100); Mean Platelet Volume 10.4 fL (7.4-10.4); Monocytes # (auto) 1.07 K/uL (0.11-0.59); Monocytes % (auto) 6.1 %; Neutrophils # (auto) 15.31 K/uL (1.4-6.5); Neutrophils % (auto) 86.7 %; Platelet Count 222 K/uL (130-400); RDW Coefficient of Variation 14.3 % (11.5-14.5); RDW Standard Deviation 47.4 fL (36.4-46.3); Red Blood Count 3.57 M/uL (4.2-5.4); Reticulocyte % 1.6 % (0.5-2.0); Reticulocytes # 0.06 10^6/uL (0.02-0.10); White Blood Count 17.63 K/uL (4.8-10.8)
--- NOTE | 2018-11-26 06:22 | CT Scan Report ---
CT abd pelvis IV con only CLINICAL HISTORY: 68 years-old Female presenting with abd pain. TECHNIQUE: Multidetector CT of the abdomen and pelvis was performed after the administration of intra venous contrast. IV contrast: 94 mL of Optiray 320. One or more dose lowering techniques were used co nsistent with the principles of ALARA (as low as reasonably achievable), including automatic exposure control, mA or kV adjustment to individual patient size, and/or use of iterative reconstruction. COMPARISON: 08/10/2013. CT DOSE (mGy.cm): The estimated cumulative dose is 315.21 mGy.cm. FINDINGS: [place] topogram: Unremarkable. Lung bases: Normal heart size. No pericardial or pleural effusion. Minimal dependent changes likely a telectasis. Liver: Normal morphology. Density suggestive of hepatic steatosis. No focal lesion. Patent hepatic va sculature. Biliary: No intrahepatic or extrahepatic biliary ductal dilatation. Gallbladder surgically absent. Pancreas: Mild parenchymal atrophy. Spleen: Normal. Splenule noted. Adrenal glands: Normal. Kidneys and ureters: Normal. No hydronephrosis. Bladder: Incompletely evaluated secondary to underdistention. Pelvic organs: Uterus surgically absent. No adnexal masses. Bowel: Normal appendix. No bowel obstruction. Small hiatal hernia. Peritoneal cavity: Small free fluid in the pelvis. No free intraperitoneal gas. Lymph nodes: No enlarged lymph nodes in the abdomen or pelvis. Vasculature: Aorta and IVC patent and normal in caliber. Abdominal wall: Small fat-containing umbilical hernia. Musculoskeletal: Osteopenia. Coarsened trabecular appearance may relate to osteopenia or, less likely , indicate developing Paget's disease. IMPRESSION: 1. Hepatic steatosis. Correlate with liver function tests to exclude steatohepatitis as a cause for abdominal pain. 2. Small hiatal hernia. 3. Small free fluid in the pelvis may be physiologic. 4. Osteopenia. Electronically signed by: Ron Gaitan M.D. 11/26/2018 6:20 AM
[2018-11-26 06:52] LABS: BUN Creatinine Ratio 22.6 (10-20); Creatinine Clr Calc Pharmacy 33.9 ml/min; Est GFR (African American) 40.7; Est GFR (Non-African American) 35.1; Phosphorus 3.9 mg/dl (2.5-4.9); Potassium 4.6 mmol/L (3.5-5.1)
[2018-11-26 06:54] LABS: Ferritin 39.8 ng/ml (8-388)
--- NOTE | 2018-11-26 07:05 | Hospitalist Progress Note ---
Date of Service November 26, 2018 Subjective Made aware by RN around 7 AM of SBP dropped to the 70s. Decreased responsiveness as per RN. Lactic acid 5 as per RN. AP Septic shock Rule out cardiac dysfunction ICU transfer for possible pressor Rx IVF bolus Track lactic acid Broaden antibiotic coverage to Imipenem and Vancomycin Continue n.p.o. status Based on TTE RE hypotension Dr. Wilson (surgeon on-call) notified of developments via [employer] text message. Patient sister, Ms. Priscilla Quiñones updated of developments over the phone. (Contact numbers # [phone].) Results & Data Vital Signs (Past 12 Hours) Vital Signs Temp Pulse Pulse Resp BP BP Pulse Ox 11/26/18 02:52 37.2 C 119 H 78 16 105/65 99 11/26/18 02:09 118 H 20 99/48 L 96 11/26/18 00:45 106 H 20 95/45 L 96 11/25/18 23:35 101 H 18 98/55 L 95 11/25/18 22:00 94 H 15 98 11/25/18 20:55 98 H 20 102/55 L 100 11/25/18 20:52 99 H 14 102/55 L 98
[2018-11-26 07:11] LABS: Beta-Hydroxybutyrate 15.06 mg/dl (0.2-2.81)
[2018-11-26] MEDS: LACTATED RINGER'S 1,000 ML IV SCH ×4 (08:30→12:57)
[2018-11-26] MEDS: INSULIN ASPART 100 UNITS/ML 3 ML PEN SC SCH ×4 (08:33→22:44)
[2018-11-26] MEDS ORDERED: ERTAPENEM CONSULT ACTIVE PRN (09:00)
[2018-11-26] MEDS ORDERED: diazePAM 5 MG TABLET PO SCH ×2 (09:00→21:00)
[2018-11-26] MEDS ORDERED: VANCOMYCIN CONSULT ACTIVE PRN (09:00)
[2018-11-26] MEDS: FAMOTIDINE 20 MG in SYRINGE 3 ML IV SCH ×2 (09:03→20:55)
[2018-11-26] MEDS ORDERED: IMIPENEM/CILASTATIN CONSULT ACTIVE PRN (09:05)
[2018-11-26] MEDS ORDERED: VANCOMYCIN HCL 1,750 MG in SODIUM CHLORIDE 0.9% 500 ML IV STA (09:07)
--- NOTE | 2018-11-26 09:28 | Pharmacy Report ---
Pharmacy Abx Dose Short Note - Date of Service November 26, 2018 - Assessment & Plan Assessment 68 year old F receiving IV Vancomycin and Primaxin for treatment of sepsis secondary to acute gastroenteritis Day # 1 of antimicrobial therapy. * Originally started on Invanz 1g IV daily, but coverage broadened this AM to Primaxin and Vancomycin as patient transferred to ICU for septic shock * ID was consulted; has not evaluated patient yet * Patient appears to be in SHARDA - sCr was 1.19 mg/dL upon admission, now incr' to 1.53 mg/dL. Therefore, will dose Vancomycin prn based on random levels until renal function stabilizes. Plan Vancomycin * Give Vancomycin 1750mg (~25mg/kg) IV x 1 as loading dose only * Goal trough level for GI : 15 to 20 mcg/mL * Random level ordered for: 11/27/18 with AM labs to guide next dose Primaxin * Target dose = 500mg IV q6 * Initiate Primaxin 300mg IV q6 for CrCl 30-59 mL/min Pharmacy will continue to follow and will adjust dose/frequency as necessary. Thank you.
[2018-11-26] MEDS: IMIPENEM/CILASTATIN SODIUM 300 MG in DEXTROSE 5% 100 ML IV SCH ×3 (09:39→20:55)
--- NOTE | 2018-11-26 09:50 | Surgery Progress Note ---
Date of Service November 26, 2018 Assessment & Plan (1) Abdominal pain: Abdominal pain has resolved Lactate and white count noted Abdominal exam is completely benign Etiology of abdominal pain is not completely clear I doubt ischemic bowel at this time We will continue to follow Subjective Notes and chart reviewed Patient was transferred to the intensive care unit with hypotension Vital signs are now stable after fluid resuscitation Denies abdominal pain today Occasional nausea but no vomiting Physical Exam Gastrointestinal (Abdomen): Inspection/Auscultation: normal bowel sounds; abdomen not distended Percussion/Palpation: abdomen soft; abdomen nontender Results & Data Vital Signs (Past 12 Hours) Vital Signs Temp Pulse Pulse Resp BP BP Pulse Ox 11/26/18 08:31 36.7 C 99 H 21 94/40 L 96 11/26/18 07:30 106 H 11/26/18 07:06 37.0 C 104 H 18 77/46 L 95 11/26/18 02:52 37.2 C 119 H 78 16 105/65 99 11/26/18 02:09 118 H 20 99/48 L 96 11/26/18 00:45 106 H 20 95/45 L 96 11/25/18 23:35 101 H 18 98/55 L 95 11/25/18 22:00 94 H 15 98 Laboratory Results 11/26/18 11/26/18 11/26/18 Range/Units 08:30 07:04 06:00 WBC (4.8-10.8) K/uL RBC (4.2-5.4) M/uL Hgb (12.0-16.0) g/dL POC Hgb (12.0-16.0) g/dl Hct (37-47) % POC Hct (37-47) % MCV (80-100) fL MCH (25-34) pg MCHC (32-36) g/dL RDW Std Deviation (36.4-46.3) fL RDW Coeff of Maria Del Carmen (11.5-14.5) % Plt Count (130-400) K/uL MPV (7.4-10.4) fL Immature Gran % (Auto) % Neut % (Auto) % Lymph % (Auto) % Preston % (Auto) % Eos % (Auto) % Baso % (Auto) % Reticulocyte % (Auto) (0.5-2.0) % Immature Gran # (Auto) (0.00-0.02) K/uL Neut # (Auto) (1.4-6.5) K/uL Lymph # (Auto) (1.2-3.4) K/uL Preston # (Auto) (0.11-0.59) K/uL Eos # (Auto) (0-0.5) K/uL Baso # (Auto) (0-0.2) K/uL Reticulocyte # (0.02-0.10) 10^6/uL Absolute Nucleated RBC (0-0) K/uL Nucleated RBC % (auto) % VBG pH (7.36-7.41) VBG pCO2 (38-50) mmHg VBG pO2 mmHg VBG HCO3 mmol/L VBG O2 Saturation % VBG Base Excess mEq/L Barometric Pressure mm/Hg POC Sodium (135-144) mEq/L Sodium (136-145) mmol/L POC Potassium (3.3-5.0) mEq/L Potassium (3.5-5.1) mmol/L POC Chloride (101-112) mEq/L Chloride (98-107) mmol/L Carbon Dioxide (21-32) mmol/L POC Total CO2 (24-31) mEq/l Anion Gap (3-11) POC Anion Gap (16-25) mmol/L POC BUN (7-18) mg/dl BUN (7-18) mg/dl Creatinine (0.6-1.2) mg/dl POC Creatinine (0.6-1.3) mg/dl Est Cr Clr Drug Dosing Est GFR ( Amer) Est GFR (Non-Af Amer) BUN/Creatinine Ratio (10-20) Glucose (70-99) mg/dl POC Glucose 425 H* 414 H* (70-99) POC Glucose (other) (70-99) mg/dl Lactate (0.4-2.0) mmol/L Calcium (8.5-10.1) mg/dl POC Ioniz Calcium Wallace (1.12-1.32) mmol/l Phosphorus (2.5-4.9) mg/dl Magnesium (1.8-2.4) mg/dl Iron (35-150) mcg/dl TIBC (250-450) mcg/dl Transferrin (200-360) mg/dl Ferritin (8-388) ng/ml Total Bilirubin (0.2-1) mg/dl Direct Bilirubin (0-0.2) mg/dl AST (15-37) U/L ALT (12-78) U/L Alkaline Phosphatase (45-117) U/L Troponin I (0-0.045) ng/ml Total Protein (6.4-8.2) gm/dl Albumin (3.4-5.0) gm/dl Globulin (2.5-4.0) gm/dl Albumin/Globulin Ratio (0.9-2) Lipase (73-393) U/L Vitamin B12 Folate Beta-Hydroxybutyric Acd (0.2-2.81) mg/dl Procalcitonin (0-0.5) ng/ml TSH (0.300-4.500) uIu/ml Urine Color Urine Appearance (Clear) Urine pH (4.5-7.5) Ur Specific [place] (1.000-1.030) Urine Protein (Negative) Urine Glucose (UA) (Negative) Urine Ketones (Negative) Urine Blood (Negative) Urine Nitrite (Negative) Urine Bilirubin (Negative) Urine Urobilinogen (Negative) Ur Leukocyte Esterase (Negative) Urine WBC (Auto) (0-5) /hpf Urine RBC (Auto) (0-4) /hpf U Hyaline Cast (Auto) (0-5) /lpf U Epithel Cells (Auto) (0-5) /lpf Urine Bacteria (Auto) (Negative) Nasal Screen MRSA (PCR) Pending Blood Type Antibody Screen 11/26/18 11/26/18 11/26/18 Range/Units 05:59 05:59 05:59 WBC 17.63 H (4.8-10.8) K/uL RBC 3.57 L (4.2-5.4) M/uL Hgb 10.7 L (12.0-16.0) g/dL POC Hgb (12.0-16.0) g/dl Hct 32.4 L (37-47) % POC Hct (37-47) % MCV 90.8 (80-100) fL MCH 30.0 (25-34) pg MCHC 33.0 (32-36) g/dL RDW Std Deviation 47.4 H (36.4-46.3) fL RDW Coeff of Maria Del Carmen 14.3 (11.5-14.5) % Plt Count 222 (130-400) K/uL MPV 10.4 (7.4-10.4) fL Immature Gran % (Auto) 0.6 % Neut % (Auto) 86.7 % Lymph % (Auto) 6.4 % Preston % (Auto) 6.1 % Eos % (Auto) 0.1 % Baso % (Auto) 0.1 % Reticulocyte % (Auto) 1.6 (0.5-2.0) % Immature Gran # (Auto) 0.10 H (0.00-0.02) K/uL Neut # (Auto) 15.31 H (1.4-6.5) K/uL Lymph # (Auto) 1.12 L (1.2-3.4) K/uL Preston # (Auto) 1.07 H (0.11-0.59) K/uL Eos # (Auto) 0.01 (0-0.5) K/uL Baso # (Auto) 0.02 (0-0.2) K/uL Reticulocyte # 0.06 (0.02-0.10) 10^6/uL Absolute Nucleated RBC (0-0) K/uL Nucleated RBC % (auto) % VBG pH (7.36-7.41) VBG pCO2 (38-50) mmHg VBG pO2 mmHg VBG HCO3 mmol/L VBG O2 Saturation % VBG Base Excess mEq/L Barometric Pressure mm/Hg POC Sodium (135-144) mEq/L Sodium 141 (136-145) mmol/L POC Potassium (3.3-5.0) mEq/L Potassium 4.6 (3.5-5.1) mmol/L POC Chloride (101-112) mEq/L Chloride 109 H (98-107) mmol/L Carbon Dioxide 18 L (21-32) mmol/L POC Total CO2 (24-31) mEq/l Anion Gap 14.0 H (3-11) POC Anion Gap (16-25) mmol/L POC BUN (7-18) mg/dl BUN 35 H (7-18) mg/dl Creatinine 1.53 H D (0.6-1.2) mg/dl POC Creatinine (0.6-1.3) mg/dl Est Cr Clr Drug Dosing 33.9 Est GFR ( Amer) 40.7 Est GFR (Non-Af Amer) 35.1 BUN/Creatinine Ratio 22.6 H (10-20) Glucose 430 H* (70-99) mg/dl POC Glucose (70-99) POC Glucose (other) (70-99) mg/dl Lactate 5.0 H* (0.4-2.0) mmol/L Calcium 8.0 L (8.5-10.1) mg/dl POC Ioniz Calcium Wallace (1.12-1.32) mmol/l Phosphorus 3.9 D (2.5-4.9) mg/dl Magnesium (1.8-2.4) mg/dl Iron (35-150) mcg/dl TIBC 311 (250-450) mcg/dl Transferrin 246 (200-360) mg/dl Ferritin 39.8 (8-388) ng/ml Total Bilirubin (0.2-1) mg/dl Direct Bilirubin (0-0.2) mg/dl AST (15-37) U/L ALT (12-78) U/L Alkaline Phosphatase (45-117) U/L Troponin I (0-0.045) ng/ml Total Protein (6.4-8.2) gm/dl Albumin (3.4-5.0) gm/dl Globulin (2.5-4.0) gm/dl Albumin/Globulin Ratio (0.9-2) Lipase (73-393) U/L Vitamin B12 Folate Beta-Hydroxybutyric Acd 15.06 H (0.2-2.81) mg/dl Procalcitonin (0-0.5) ng/ml TSH (0.300-4.500) uIu/ml Urine Color Urine Appearance (Clear) Urine pH (4.5-7.5) Ur Specific [place] (1.000-1.030) Urine Protein (Negative) Urine Glucose (UA) (Negative) Urine Ketones (Negative) Urine Blood (Negative) Urine Nitrite (Negative) Urine Bilirubin (Negative) Urine Urobilinogen (Negative) Ur Leukocyte Esterase (Negative) Urine WBC (Auto) (0-5) /hpf Urine RBC (Auto) (0-4) /hpf U Hyaline Cast (Auto) (0-5) /lpf U Epithel Cells (Auto) (0-5) /lpf Urine Bacteria (Auto) (Negative) Nasal Screen MRSA (PCR) Blood Type Antibody Screen 11/26/18 11/26/18 11/26/18 Range/Units 05:59 05:40 04:57 WBC (4.8-10.8) K/uL RBC (4.2-5.4) M/uL Hgb (12.0-16.0) g/dL POC Hgb (12.0-16.0) g/dl Hct (37-47) % POC Hct (37-47) % MCV (80-100) fL MCH (25-34) pg MCHC (32-36) g/dL RDW Std Deviation (36.4-46.3) fL RDW Coeff of Maria Del Carmen (11.5-14.5) % Plt Count (130-400) K/uL MPV (7.4-10.4) fL Immature Gran % (Auto) % Neut % (Auto) % Lymph % (Auto) % Preston % (Auto) % Eos % (Auto) % Baso % (Auto) % Reticulocyte % (Auto) (0.5-2.0) % Immature Gran # (Auto) (0.00-0.02) K/uL Neut # (Auto) (1.4-6.5) K/uL Lymph # (Auto) (1.2-3.4) K/uL Preston # (Auto) (0.11-0.59) K/uL Eos # (Auto) (0-0.5) K/uL Baso # (Auto) (0-0.2) K/uL Reticulocyte # (0.02-0.10) 10^6/uL Absolute Nucleated RBC (0-0) K/uL Nucleated RBC % (auto) % VBG pH (7.36-7.41) VBG pCO2 (38-50) mmHg VBG pO2 mmHg VBG HCO3 mmol/L VBG O2 Saturation % VBG Base Excess mEq/L Barometric Pressure mm/Hg POC Sodium (135-144) mEq/L Sodium (136-145) mmol/L POC Potassium (3.3-5.0) mEq/L Potassium (3.5-5.1) mmol/L POC Chloride (101-112) mEq/L Chloride (98-107) mmol/L Carbon Dioxide (21-32) mmol/L POC Total CO2 (24-31) mEq/l Anion Gap (3-11) POC Anion Gap (16-25) mmol/L POC BUN (7-18) mg/dl BUN (7-18) mg/dl Creatinine (0.6-1.2) mg/dl POC Creatinine (0.6-1.3) mg/dl Est Cr Clr Drug Dosing Est GFR ( Amer) Est GFR (Non-Af Amer) BUN/Creatinine Ratio (10-20) Glucose (70-99) mg/dl POC Glucose 453 H* (70-99) POC Glucose (other) (70-99) mg/dl Lactate (0.4-2.0) mmol/L Calcium (8.5-10.1) mg/dl POC Ioniz Calcium Wallace (1.12-1.32) mmol/l Phosphorus (2.5-4.9) mg/dl Magnesium (1.8-2.4) mg/dl Iron (35-150) mcg/dl TIBC (250-450) mcg/dl Transferrin (200-360) mg/dl Ferritin (8-388) ng/ml Total Bilirubin (0.2-1) mg/dl Direct Bilirubin (0-0.2) mg/dl AST (15-37) U/L ALT (12-78) U/L Alkaline Phosphatase (45-117) U/L Troponin I (0-0.045) ng/ml Total Protein (6.4-8.2) gm/dl Albumin (3.4-5.0) gm/dl Globulin (2.5-4.0) gm/dl Albumin/Globulin Ratio (0.9-2) Lipase (73-393) U/L Vitamin B12 Pending Folate Pending Beta-Hydroxybutyric Acd (0.2-2.81) mg/dl Procalcitonin (0-0.5) ng/ml TSH (0.300-4.500) uIu/ml Urine Color Urine Appearance (Clear) Urine pH (4.5-7.5) Ur Specific [place] (1.000-1.030) Urine Protein (Negative) Urine Glucose (UA) (Negative) Urine Ketones (Negative) Urine Blood (Negative) Urine Nitrite (Negative) Urine Bilirubin (Negative) Urine Urobilinogen (Negative) Ur Leukocyte Esterase (Negative) Urine WBC (Auto) (0-5) /hpf Urine RBC (Auto) (0-4) /hpf U Hyaline Cast (Auto) (0-5) /lpf U Epithel Cells (Auto) (0-5) /lpf Urine Bacteria (Auto) (Negative) Nasal Screen MRSA (PCR) Blood Type O Positive Antibody Screen NEGATIVE 11/26/18 11/26/18 11/25/18 Range/Units 03:07 01:20 23:28 WBC (4.8-10.8) K/uL RBC (4.2-5.4) M/uL Hgb (12.0-16.0) g/dL POC Hgb (12.0-16.0) g/dl Hct (37-47) % POC Hct (37-47) % MCV (80-100) fL MCH (25-34) pg MCHC (32-36) g/dL RDW Std Deviation (36.4-46.3) fL RDW Coeff of Maria Del Carmen (11.5-14.5) % Plt Count (130-400) K/uL MPV (7.4-10.4) fL Immature Gran % (Auto) % Neut % (Auto) % Lymph % (Auto) % [place] % (Auto) % Eos % (Auto) % Baso % (Auto) % Reticulocyte % (Auto) (0.5-2.0) % Immature Gran # (Auto) (0.00-0.02) K/uL Neut # (Auto) (1.4-6.5) K/uL Lymph # (Auto) (1.2-3.4) K/uL Preston # (Auto) (0.11-0.59) K/uL Eos # (Auto) (0-0.5) K/uL Baso # (Auto) (0-0.2) K/uL Reticulocyte # (0.02-0.10) 10^6/uL Absolute Nucleated RBC (0-0) K/uL Nucleated RBC % (auto) % VBG pH (7.36-7.41) VBG pCO2 (38-50) mmHg VBG pO2 mmHg VBG HCO3 mmol/L VBG O2 Saturation % VBG Base Excess mEq/L Barometric Pressure mm/Hg POC Sodium (135-144) mEq/L Sodium (136-145) mmol/L POC Potassium (3.3-5.0) mEq/L Potassium (3.5-5.1) mmol/L POC Chloride (101-112) mEq/L Chloride (98-107) mmol/L Carbon Dioxide (21-32) mmol/L POC Total CO2 (24-31) mEq/l Anion Gap (3-11) POC Anion Gap (16-25) mmol/L POC BUN (7-18) mg/dl BUN (7-18) mg/dl Creatinine (0.6-1.2) mg/dl POC Creatinine (0.6-1.3) mg/dl Est Cr Clr Drug Dosing Est GFR ( Amer) Est GFR (Non-Af Amer) BUN/Creatinine Ratio (10-20) Glucose (70-99) mg/dl POC Glucose 458 H* (70-99) POC Glucose (other) (70-99) mg/dl Lactate (0.4-2.0) mmol/L Calcium (8.5-10.1) mg/dl POC Ioniz Calcium Wallace (1.12-1.32) mmol/l Phosphorus (2.5-4.9) mg/dl Magnesium (1.8-2.4) mg/dl Iron (35-150) mcg/dl TIBC (250-450) mcg/dl Transferrin (200-360) mg/dl Ferritin (8-388) ng/ml Total Bilirubin (0.2-1) mg/dl Direct Bilirubin (0-0.2) mg/dl AST (15-37) U/L ALT (12-78) U/L Alkaline Phosphatase (45-117) U/L Troponin I (0-0.045) ng/ml Total Protein (6.4-8.2) gm/dl Albumin (3.4-5.0) gm/dl Globulin (2.5-4.0) gm/dl Albumin/Globulin Ratio (0.9-2) Lipase (73-393) U/L Vitamin B12 Folate Beta-Hydroxybutyric Acd (0.2-2.81) mg/dl Procalcitonin 18.67 H (0-0.5) ng/ml TSH (0.300-4.500) uIu/ml Urine Color Yellow Urine Appearance Clear (Clear) Urine pH 5.0 (4.5-7.5) Ur Specific [place] 1.024 (1.000-1.030) Urine Protein Negative (Negative) Urine Glucose (UA) 3+ H (Negative) Urine Ketones 2+ H (Negative) Urine Blood Negative (Negative) Urine Nitrite Negative (Negative) Urine Bilirubin Negative (Negative) Urine Urobilinogen Negative (Negative) Ur Leukocyte Esterase Trace H (Negative) Urine WBC (Auto) 10-30 H (0-5) /hpf Urine RBC (Auto) 0-4 (0-4) /hpf U Hyaline Cast (Auto) 0 (0-5) /lpf U Epithel Cells (Auto) 20-30 H (0-5) /lpf Urine Bacteria (Auto) Negative (Negative) Nasal Screen MRSA (PCR) Blood Type Antibody Screen 11/25/18 11/25/18 11/25/18 Range/Units 23:27 23:27 23:27 WBC 15.56 H (4.8-10.8) K/uL RBC 4.02 L (4.2-5.4) M/uL Hgb 11.9 L (12.0-16.0) g/dL POC Hgb (12.0-16.0) g/dl Hct 35.9 L (37-47) % POC Hct (37-47) % MCV 89.3 (80-100) fL MCH 29.6 (25-34) pg MCHC 33.1 (32-36) g/dL RDW Std Deviation 46.2 (36.4-46.3) fL RDW Coeff of Maria Del Carmen 14.1 (11.5-14.5) % Plt Count 241 (130-400) K/uL MPV 10.6 H (7.4-10.4) fL Immature Gran % (Auto) 0.3 % Neut % (Auto) 89.7 % Lymph % (Auto) 4.4 % [place] % (Auto) 5.5 % Eos % (Auto) 0.0 % Baso % (Auto) 0.1 % Reticulocyte % (Auto) 1.7 (0.5-2.0) % Immature Gran # (Auto) 0.05 H (0.00-0.02) K/uL Neut # (Auto) 13.96 H (1.4-6.5) K/uL Lymph # (Auto) 0.68 L (1.2-3.4) K/uL [place] # (Auto) 0.86 H (0.11-0.59) K/uL Eos # (Auto) 0.00 (0-0.5) K/uL Baso # (Auto) 0.01 (0-0.2) K/uL Reticulocyte # 0.07 (0.02-0.10) 10^6/uL Absolute Nucleated RBC 0.00 (0-0) K/uL Nucleated RBC % (auto) 0.0 % VBG pH 7.29 L (7.36-7.41) VBG pCO2 43 (38-50) mmHg VBG pO2 34 mmHg VBG HCO3 20 mmol/L VBG O2 Saturation < 60.0 % VBG Base Excess -6.2 mEq/L Barometric Pressure 735.4 mm/Hg POC Sodium (135-144) mEq/L Sodium 138 (136-145) mmol/L POC Potassium (3.3-5.0) mEq/L Potassium 4.8 (3.5-5.1) mmol/L POC Chloride (101-112) mEq/L Chloride 104 (98-107) mmol/L Carbon Dioxide 21 (21-32) mmol/L POC Total CO2 (24-31) mEq/l Anion Gap 13.0 H (3-11) POC Anion Gap (16-25) mmol/L POC BUN (7-18) mg/dl BUN 33 H (7-18) mg/dl Creatinine 1.19 (0.6-1.2) mg/dl POC Creatinine (0.6-1.3) mg/dl Est Cr Clr Drug Dosing Not Reportable Est GFR ( Amer) 55.1 Est GFR (Non-Af Amer) 47.5 BUN/Creatinine Ratio 27.5 H (10-20) Glucose 465 H* (70-99) mg/dl POC Glucose (70-99) POC Glucose (other) (70-99) mg/dl Lactate (0.4-2.0) mmol/L Calcium 8.4 L (8.5-10.1) mg/dl POC Ioniz Calcium Wallace (1.12-1.32) mmol/l Phosphorus 5.0 H (2.5-4.9) mg/dl Magnesium 2.3 (1.8-2.4) mg/dl Iron 90 (35-150) mcg/dl TIBC 319 (250-450) mcg/dl Transferrin 255 (200-360) mg/dl Ferritin 24.9 (8-388) ng/ml Total Bilirubin 0.7 (0.2-1) mg/dl Direct Bilirubin 0.3 H (0-0.2) mg/dl AST 13 L (15-37) U/L ALT 14 (12-78) U/L Alkaline Phosphatase 82 (45-117) U/L Troponin I < 0.015 (0-0.045) ng/ml Total Protein 6.2 L (6.4-8.2) gm/dl Albumin 3.4 (3.4-5.0) gm/dl Globulin 2.8 (2.5-4.0) gm/dl Albumin/Globulin Ratio 1.2 (0.9-2) Lipase 44 L (73-393) U/L Vitamin B12 Folate Beta-Hydroxybutyric Acd 14.39 H (0.2-2.81) mg/dl Procalcitonin (0-0.5) ng/ml TSH 0.407 (0.300-4.500) uIu/ml Urine Color Urine Appearance (Clear) Urine pH (4.5-7.5) Ur Specific [place] (1.000-1.030) Urine Protein (Negative) Urine Glucose (UA) (Negative) Urine Ketones (Negative) Urine Blood (Negative) Urine Nitrite (Negative) Urine Bilirubin (Negative) Urine Urobilinogen (Negative) Ur Leukocyte Esterase (Negative) Urine WBC (Auto) (0-5) /hpf Urine RBC (Auto) (0-4) /hpf U Hyaline Cast (Auto) (0-5) /lpf U Epithel Cells (Auto) (0-5) /lpf Urine Bacteria (Auto) (Negative) Nasal Screen MRSA (PCR) Blood Type Antibody Screen 11/25/18 Range/Units 21:20 WBC (4.8-10.8) K/uL RBC (4.2-5.4) M/uL Hgb (12.0-16.0) g/dL POC Hgb 13.9 (12.0-16.0) g/dl Hct (37-47) % POC Hct 41 (37-47) % MCV (80-100) fL MCH (25-34) pg MCHC (32-36) g/dL RDW Std Deviation (36.4-46.3) fL RDW Coeff of Maria Del Carmen (11.5-14.5) % Plt Count (130-400) K/uL MPV (7.4-10.4) fL Immature Gran % (Auto) % Neut % (Auto) % Lymph % (Auto) % [place] % (Auto) % Eos % (Auto) % Baso % (Auto) % Reticulocyte % (Auto) (0.5-2.0) % Immature Gran # (Auto) (0.00-0.02) K/uL Neut # (Auto) (1.4-6.5) K/uL Lymph # (Auto) (1.2-3.4) K/uL [place] # (Auto) (0.11-0.59) K/uL Eos # (Auto) (0-0.5) K/uL Baso # (Auto) (0-0.2) K/uL Reticulocyte # (0.02-0.10) 10^6/uL Absolute Nucleated RBC (0-0) K/uL Nucleated RBC % (auto) % VBG pH (7.36-7.41) VBG pCO2 (38-50) mmHg VBG pO2 mmHg VBG HCO3 mmol/L VBG O2 Saturation % VBG Base Excess mEq/L Barometric Pressure mm/Hg POC Sodium 134 L (135-144) mEq/L Sodium (136-145) mmol/L POC Potassium 4.7 (3.3-5.0) mEq/L Potassium (3.5-5.1) mmol/L POC Chloride 98 L (101-112) mEq/L Chloride (98-107) mmol/L Carbon Dioxide (21-32) mmol/L POC Total CO2 25 (24-31) mEq/l Anion Gap (3-11) POC Anion Gap 18.0 (16-25) mmol/L POC BUN 42 H (7-18) mg/dl BUN (7-18) mg/dl Creatinine (0.6-1.2) mg/dl POC Creatinine 1.0 (0.6-1.3) mg/dl Est Cr Clr Drug Dosing Est GFR ( Amer) Est GFR (Non-Af Amer) BUN/Creatinine Ratio (10-20) Glucose (70-99) mg/dl POC Glucose (70-99) POC Glucose (other) 478 H* (70-99) mg/dl Lactate (0.4-2.0) mmol/L Calcium (8.5-10.1) mg/dl POC Ioniz Calcium Wallace 1.03 L (1.12-1.32) mmol/l Phosphorus (2.5-4.9) mg/dl Magnesium (1.8-2.4) mg/dl Iron (35-150) mcg/dl TIBC (250-450) mcg/dl Transferrin (200-360) mg/dl Ferritin (8-388) ng/ml Total Bilirubin (0.2-1) mg/dl Direct Bilirubin (0-0.2) mg/dl AST (15-37) U/L ALT (12-78) U/L Alkaline Phosphatase (45-117) U/L Troponin I (0-0.045) ng/ml Total Protein (6.4-8.2) gm/dl Albumin (3.4-5.0) gm/dl Globulin (2.5-4.0) gm/dl Albumin/Globulin Ratio (0.9-2) Lipase (73-393) U/L Vitamin B12 Folate Beta-Hydroxybutyric Acd (0.2-2.81) mg/dl Procalcitonin (0-0.5) ng/ml TSH (0.300-4.500) uIu/ml Urine Color Urine Appearance (Clear) Urine pH (4.5-7.5) Ur Specific [place] (1.000-1.030) Urine Protein (Negative) Urine Glucose (UA) (Negative) Urine Ketones (Negative) Urine Blood (Negative) Urine Nitrite (Negative) Urine Bilirubin (Negative) Urine Urobilinogen (Negative) Ur Leukocyte Esterase (Negative) Urine WBC (Auto) (0-5) /hpf Urine RBC (Auto) (0-4) /hpf U Hyaline Cast (Auto) (0-5) /lpf U Epithel Cells (Auto) (0-5) /lpf Urine Bacteria (Auto) (Negative) Nasal Screen MRSA (PCR) Blood Type Antibody Screen
[2018-11-26 10:06] LABS: Folate (Folic Acid) 10.99 ng/ml (>5.38); Vitamin B12 > 2000 pg/ml (211-911)
--- NOTE | 2018-11-26 10:13 | Critical Care Consultation ---
Date of Consultation November 26, 2018 Assessment & Plan (1) DKA (diabetic ketoacidoses): Reason Critically Ill: 68-year-old female presents with hypotension and found to be an DKA, treating for possible sepsis Neuro - CAM ICU: Negative Cardiac - Hypotensionimproved with fluid resuscitation -Likely secondary to sepsis versus hypovolemia from DKA/gastroenteritis, see management below Previous MItroponin negative, no ST elevation on EKG, normal sinus rhythm -Patient not on aspirin therapy per patient preference in setting of PUD Respiratory - No pulmonary disease on chest x-ray Patient maintain sats on room air, monitor GI - Gastroenteritispatient presented with nausea, vomiting, and diarrhea with complaints of abdominal pain -CT abdomen suggested hepatic steatosis (LFTs negative), small free fluid in pelvis -General surgery was consulted for small free fluid in pelvis, mild mesenteric edema, no surgical intervention was recommended at this time -Patient was placed on Primaxin and ID consulted Peptic ulcer diseasecontinue famotidine RENAL/LYTES - Metabolic acidosispatient has mild DKA with anion gap 14, also has lactic acidosis of 5.0 -Positive for ketones on UA -Expect this to improve with fluid resuscitation and insulin infusion -Monitoring pH and BMP every 6 hours -See treatments below AKIlikely prerenal in the setting of hypovolemia secondary to nausea, vomiting, diarrhea -Expect to improve with fluid resuscitation -Monitor with routine BMP -Avoid NSAIDs, avoid nephrotoxins - Strict I's and O's ENDO - Type I diabetic/DKABHA 15, 8 gap 14, pH 7.29 -Blood glucoses were in 400s in the ED, uncontrolled with insulin pump, now disconnected and on IV insulin infusion -Continue DKA protocol -Monitoring BMPs every 6 hours HEME - History of pernicious anemiaH&H currently stable -We will monitor and transfuse as necessary ID - Sepsisprocalcitonin and lactate elevated in the setting of hypotension -Blood cultures and urine culture pending -Started on empiric Primaxin -CT abdomen as above -ID consulted, follow-up recs LINES/IV ACCESS - Peripheral IVs DVT PROPHYLAXIS - Heparin I have personally spent 50 minutes of critical care time in the direct management of this patient. This is a life/limb threatening event. This includes time spent evaluating patient, direct bedside care, chart review, placing orders, interpretation of diagnostic studies, discussion with consultants, patient, and family members, as well as other required patient management activities. This time is exclusive of all separately billable procedures, and teaching time and separate from and in addition to any other critical care service time. Thank you for allowing us to participate in the care of this patient. Please refer to my attending physician's documentation for any further recommendations. (2) Hypotension: (3) Sepsis associated hypotension: (4) Anxiety: (5) Dyslipidemia: (6) Diabetes: Supervising Physician Co-Signing Physician Notes Patient seen and examined. EMR reviewed. Discussed with Dr. Dietz from general surgery as well as with nurse practitioner. Imaging studies were independently reviewed. Contacted by hospitalist this morning to accept patient in transfer to the ICU with hypotension, lactic acidosis, and concern about intra-abdominal process. Patient was assessed on arrival to the ICU. Her abdominal pain is resolved and her blood pressure issues of also resolved with fluids. She states yesterday she had abdominal pain free fluid noted which prompted a general surgery consultation. Antibiotics and close monitoring were recommended. Patient has a history of diabetes and initially was admitted with DKA. She has no prior history of symptoms that would be concerning for mesenteric ischemia. Her lactate is decreasing and she is responding to IV fluids and antimicrobials. ID has been consulted. Her lactate is clearing, and her exam and the CT scan are not overly worrisome currently. If she does well, she can likely transfer back to the floor under the care of the hospitalist in the morning. We will continue to monitor the patient in the ICU but her vital signs are reassuring History of Present Illness Attending Physician: Carmelo Jones MD History of Present Illness Patient is a 68-year-old female with past medical history of DM type I, VT, peptic ulcer disease who presented to the emergency department with complaints of nausea and vomiting. She was found to be hypotensive with concerns for sepsis and in DKA. Her blood sugar is normally controlled with insulin pump. In the emergency department she attempted to bolus 8 units without improvement in her blood glucose which was in the 400s. She was transitioned to IV insulin drip and fluids per DKA protocol and insulin pump was disconnected. Blood pressures have improved with fluid resuscitation and she is not requiring vasopressors or supplemental oxygen. She does report mild nausea which has significantly improved from previously. She currently denies abdominal pain or diarrhea, however she did have abdominal pain in the ED. She was taken for CT abdomen which showed small free fluid in the pelvis and mild mesenteric edema. General surgery was consulted, no current plans for surgical intervention at this time as exam is now benign. Lactate and procalcitonin were positive, cultures pending and empiric antibiotics started. She currently denies headache, syncope, confusion, shortness of breath, chest pain, palpitations. Patient to remain in ICU at this time. Allergies Allergy/AdvReac Type Severity Reaction Status Date / Time Penicillins Allergy Unknown . Verified 11/25/18 23:04 promethazine Allergy Unknown . Verified 11/25/18 23:04 Sulfa (Sulfonamide AdvReac Unknown RASH,VOMITI Verified 11/25/18 23:04 Antibiotics) NG Home Medications Home Medications Medication Instructions Recorded Confirmed Type cyanocobalamin (vit B-12) 1,000 1,000 mcg SQ .COMPLEX 11/05/18 11/25/18 History mcg/mL injection solution diazepam 5 mg tablet 5 mg PO .COMPLEX 11/05/18 11/25/18 History dicyclomine 10 mg capsule 10 mg PO DAILY cap 11/05/18 11/25/18 History hydrocodone 5 mg-acetaminophen 300 1 tab PO .COMPLEX PRN 11/05/18 11/25/18 History mg tablet insulin aspart U- 100 100 unit/mL See Rx Instructions SQ .COMPLEX 11/05/18 11/25/18 History subcutaneous solution omega-3 fatty acids 1,000 mg 1,000 mg PO DAILY 11/05/18 11/25/18 History capsule raloxifene 60 mg tablet 60 mg PO DAILY 11/05/18 11/25/18 History carisoprodol [Soma] 0 mg PO UD PRN 11/25/18 11/25/18 History diclofenac sodium 50 mg PO UD PRN 11/25/18 11/25/18 History Patient History Medical History Type 1 diabetes (Chronic) H/O: hysterectomy Surgical History History of appendectomy Hx of cholecystectomy Social History Preferred Language: Erit[place] Communication Ability: Effective Eng[employer]ver [employer] Required: No Beliefs That Will Affect Care: Mu-Ism Mu-Ism Beliefs: Nondenominational Current Living Situation: Alone Other Information That Helps Us Care for You: No Feels Safe at Home: Yes Safety Concerns: Feels Safe At This Time Smoking Status: Never smoker Hx Alcohol Use: No Hx Substance Use: No Review of Systems Review of Systems: All systems reviewed & are unremarkable except as noted in HPI & below Physical Exam Constitutional: cooperative and comfortable Eyes: PERRL, conjunctivae normal, anicteric sclerae ENMT: external ear and nose normal, oropharynx normal Neck: trachea midline, no thyromegaly Respiratory: normal respiratory effort, lungs clear to auscultation Cardiovascular: RRR, no murmur, no edema Heart Sounds: normal S1 and normal S2 Vessels: no JVD Extremities: no edema Gastrointestinal (Abdomen): Inspection/Auscultation: abdomen normal to inspection and normal bowel sounds Percussion/Palpation: + abdomen tender and abdomen soft Skin: no rashes, warm and dry Neurologic: PERRL, EOMI, accommodation nl, no face palsy, no dysarthria Psychiatric: Orientation: alert and oriented x 3 Results & Data Vital Signs (Past 12 Hours) Vital Signs Temp Pulse Pulse Resp BP BP Pulse Ox 11/26/18 10:00 98 H 18 108/55 L 98 11/26/18 09:30 101 H 17 119/41 L 96 11/26/18 09:00 99 H 24 90/58 L 95 11/26/18 08:31 36.7 C 99 H 21 94/40 L 96 11/26/18 07:30 106 H 11/26/18 07:06 37.0 C 104 H 18 77/46 L 95 11/26/18 02:52 37.2 C 119 H 78 16 105/65 99 11/26/18 02:09 118 H 20 99/48 L 96 11/26/18 00:45 106 H 20 95/45 L 96 11/25/18 23:35 101 H 18 98/55 L 95 Laboratory Results Laboratory Results - last 24 hr 11/25/18 11/25/18 11/25/18 21:20 23:27 23:27 WBC 15.56 H RBC 4.02 L Hgb 11.9 L POC Hgb 13.9 Hct 35.9 L POC Hct 41 MCV 89.3 MCH 29.6 MCHC 33.1 RDW Std Deviation 46.2 RDW Coeff of [place] 14.1 Plt Count 241 MPV 10.6 H Immature Gran % (Auto) 0.3 Neut % (Auto) 89.7 Lymph % (Auto) 4.4 [place] % (Auto) 5.5 Eos % (Auto) 0.0 Baso % (Auto) 0.1 Reticulocyte % (Auto) 1.7 Immature Gran # (Auto) 0.05 H Neut # (Auto) 13.96 H Lymph # (Auto) 0.68 L [place] # (Auto) 0.86 H Eos # (Auto) 0.00 Baso # (Auto) 0.01 Reticulocyte # 0.07 Absolute Nucleated RBC 0.00 Nucleated RBC % (auto) 0.0 VBG pH VBG pCO2 VBG pO2 VBG HCO3 VBG O2 Saturation VBG Base Excess Barometric Pressure POC Sodium 134 L Sodium 138 POC Potassium 4.7 Potassium 4.8 POC Chloride 98 L Chloride 104 Carbon Dioxide 21 POC Total CO2 25 Anion Gap 13.0 H POC Anion Gap 18.0 POC BUN 42 H BUN 33 H Creatinine 1.19 POC Creatinine 1.0 Est Cr Clr Drug Dosing Not Reportable Est GFR ( Amer) 55.1 Est GFR (Non-Af Amer) 47.5 BUN/Creatinine Ratio 27.5 H Glucose 465 H* POC Glucose POC Glucose (other) 478 H* Lactate Calcium 8.4 L POC Ioniz Calcium Wallace 1.03 L Phosphorus 5.0 H Magnesium 2.3 Iron 90 TIBC 319 Transferrin 255 Ferritin 24.9 Total Bilirubin 0.7 Direct Bilirubin 0.3 H AST 13 L ALT 14 Alkaline Phosphatase 82 Troponin I < 0.015 Total Protein 6.2 L Albumin 3.4 Globulin 2.8 Albumin/Globulin Ratio 1.2 Lipase 44 L Vitamin B12 Folate Beta-Hydroxybutyric Acd 14.39 H Procalcitonin TSH 0.407 Urine Color Urine Appearance Urine pH Ur Specific [place] Urine Protein Urine Glucose (UA) Urine Ketones Urine Blood Urine Nitrite Urine Bilirubin Urine Urobilinogen Ur Leukocyte Esterase Urine WBC (Auto) Urine RBC (Auto) U Hyaline Cast (Auto) U Epithel Cells (Auto) Urine Bacteria (Auto) Nasal Screen MRSA (PCR) Blood Type Antibody Screen 11/25/18 11/25/18 11/26/18 23:27 23:28 01:20 WBC RBC Hgb POC Hgb Hct POC Hct MCV MCH MCHC RDW Std Deviation RDW Coeff of [place] Plt Count MPV Immature Gran % (Auto) Neut % (Auto) Lymph % (Auto) [place] % (Auto) Eos % (Auto) Baso % (Auto) Reticulocyte % (Auto) Immature Gran # (Auto) Neut # (Auto) Lymph # (Auto) [place] # (Auto) Eos # (Auto) Baso # (Auto) Reticulocyte # Absolute Nucleated RBC Nucleated RBC % (auto) VBG pH 7.29 L VBG pCO2 43 VBG pO2 34 VBG HCO3 20 VBG O2 Saturation < 60.0 VBG Base Excess -6.2 Barometric Pressure 735.4 POC Sodium Sodium POC Potassium Potassium POC Chloride Chloride Carbon Dioxide POC Total CO2 Anion Gap POC Anion Gap POC BUN BUN Creatinine POC Creatinine Est Cr Clr Drug Dosing Est GFR ( Amer) Est GFR (Non-Af Amer) BUN/Creatinine Ratio Glucose POC Glucose POC Glucose (other) Lactate Calcium POC Ioniz Calcium Wallace Phosphorus Magnesium Iron TIBC Transferrin Ferritin Total Bilirubin Direct Bilirubin AST ALT Alkaline Phosphatase Troponin I Total Protein Albumin Globulin Albumin/Globulin Ratio Lipase Vitamin B12 Folate Beta-Hydroxybutyric Acd Procalcitonin 18.67 H TSH Urine Color Yellow Urine Appearance Clear Urine pH 5.0 Ur Specific [place] 1.024 Urine Protein Negative Urine Glucose (UA) 3+ H Urine Ketones 2+ H Urine Blood Negative Urine Nitrite Negative Urine Bilirubin Negative Urine Urobilinogen Negative Ur Leukocyte Esterase Trace H Urine WBC (Auto) 10-30 H Urine RBC (Auto) 0-4 U Hyaline Cast (Auto) 0 U Epithel Cells (Auto) 20-30 H Urine Bacteria (Auto) Negative Nasal Screen MRSA (PCR) Blood Type Antibody Screen 11/26/18 11/26/18 11/26/18 03:07 04:57 05:40 WBC RBC Hgb POC Hgb Hct POC Hct MCV MCH MCHC RDW Std Deviation RDW Coeff of [place] Plt Count MPV Immature Gran % (Auto) Neut % (Auto) Lymph % (Auto) [place] % (Auto) Eos % (Auto) Baso % (Auto) Reticulocyte % (Auto) Immature Gran # (Auto) Neut # (Auto) Lymph # (Auto) [place] # (Auto) Eos # (Auto) Baso # (Auto) Reticulocyte # Absolute Nucleated RBC Nucleated RBC % (auto) VBG pH VBG pCO2 VBG pO2 VBG HCO3 VBG O2 Saturation VBG Base Excess Barometric Pressure POC Sodium Sodium POC Potassium Potassium POC Chloride Chloride Carbon Dioxide POC Total CO2 Anion Gap POC Anion Gap POC BUN BUN Creatinine POC Creatinine Est Cr Clr Drug Dosing Est GFR ( Amer) Est GFR (Non-Af Amer) BUN/Creatinine Ratio Glucose POC Glucose 458 H* 453 H* POC Glucose (other) Lactate Calcium POC Ioniz Calcium Wallace Phosphorus Magnesium Iron TIBC Transferrin Ferritin Total Bilirubin Direct Bilirubin AST ALT Alkaline Phosphatase Troponin I Total Protein Albumin Globulin Albumin/Globulin Ratio Lipase Vitamin B12 > 2000 H Folate 10.99 Beta-Hydroxybutyric Acd Procalcitonin TSH Urine Color Urine Appearance Urine pH Ur Specific [place] Urine Protein Urine Glucose (UA) Urine Ketones Urine Blood Urine Nitrite Urine Bilirubin Urine Urobilinogen Ur Leukocyte Esterase Urine WBC (Auto) Urine RBC (Auto) U Hyaline Cast (Auto) U Epithel Cells (Auto) Urine Bacteria (Auto) Nasal Screen MRSA (PCR) Blood Type Antibody Screen 11/26/18 11/26/18 11/26/18 05:59 05:59 05:59 WBC 17.63 H RBC 3.57 L Hgb 10.7 L POC Hgb Hct 32.4 L POC Hct MCV 90.8 MCH 30.0 MCHC 33.0 RDW Std Deviation 47.4 H RDW Coeff of [place] 14.3 Plt Count 222 MPV 10.4 Immature Gran % (Auto) 0.6 Neut % (Auto) 86.7 Lymph % (Auto) 6.4 [place] % (Auto) 6.1 Eos % (Auto) 0.1 Baso % (Auto) 0.1 Reticulocyte % (Auto) 1.6 Immature Gran # (Auto) 0.10 H Neut # (Auto) 15.31 H Lymph # (Auto) 1.12 L [place] # (Auto) 1.07 H Eos # (Auto) 0.01 Baso # (Auto) 0.02 Reticulocyte # 0.06 Absolute Nucleated RBC Nucleated RBC % (auto) VBG pH VBG pCO2 VBG pO2 VBG HCO3 VBG O2 Saturation VBG Base Excess Barometric Pressure POC Sodium Sodium POC Potassium Potassium POC Chloride Chloride Carbon Dioxide POC Total CO2 Anion Gap POC Anion Gap POC BUN BUN Creatinine POC Creatinine Est Cr Clr Drug Dosing Est GFR ( Amer) Est GFR (Non-Af Amer) BUN/Creatinine Ratio Glucose POC Glucose POC Glucose (other) Lactate 5.0 H* Calcium POC Ioniz Calcium Wallace Phosphorus Magnesium Iron TIBC Transferrin Ferritin Total Bilirubin Direct Bilirubin AST ALT Alkaline Phosphatase Troponin I Total Protein Albumin Globulin Albumin/Globulin Ratio Lipase Vitamin B12 Folate Beta-Hydroxybutyric Acd Procalcitonin TSH Urine Color Urine Appearance Urine pH Ur Specific [place] Urine Protein Urine Glucose (UA) Urine Ketones Urine Blood Urine Nitrite Urine Bilirubin Urine Urobilinogen Ur Leukocyte Esterase Urine WBC (Auto) Urine RBC (Auto) U Hyaline Cast (Auto) U Epithel Cells (Auto) Urine Bacteria (Auto) Nasal Screen MRSA (PCR) Blood Type O Positive Antibody Screen NEGATIVE 11/26/18 11/26/18 11/26/18 05:59 06:00 07:04 WBC RBC Hgb POC Hgb Hct POC Hct MCV MCH MCHC RDW Std Deviation RDW Coeff of Maria [place] Carm[place] Plt Count MPV Immature Gran % (Auto) Neut % (Auto) Lymph % (Auto) [place] % (Auto) Eos % (Auto) Baso % (Auto) Reticulocyte % (Auto) Immature Gran # (Auto) Neut # (Auto) Lymph # (Auto) [place] # (Auto) Eos # (Auto) Baso # (Auto) Reticulocyte # Absolute Nucleated RBC Nucleated RBC % (auto) VBG pH VBG pCO2 VBG pO2 VBG HCO3 VBG O2 Saturation VBG Base Excess Barometric Pressure POC Sodium Sodium 141 POC Potassium Potassium 4.6 POC Chloride Chloride 109 H Carbon Dioxide 18 L POC Total CO2 Anion Gap 14.0 H POC Anion Gap POC BUN BUN 35 H Creatinine 1.53 H D POC Creatinine Est Cr Clr Drug Dosing 33.9 Est GFR ( Amer) 40.7 Est GFR (Non-Af Amer) 35.1 BUN/Creatinine Ratio 22.6 H Glucose 430 H* POC Glucose 414 H* 425 H* POC Glucose (other) Lactate Calcium 8.0 L POC Ioniz Calcium Wallace Phosphorus 3.9 D Magnesium Iron TIBC 311 Transferrin 246 Ferritin 39.8 Total Bilirubin Direct Bilirubin AST ALT Alkaline Phosphatase Troponin I Total Protein Albumin Globulin Albumin/Globulin Ratio Lipase Vitamin B12 Folate Beta-Hydroxybutyric Acd 15.06 H Procalcitonin TSH Urine Color Urine Appearance Urine pH Ur Specific [place] Urine Protein Urine Glucose (UA) Urine Ketones Urine Blood Urine Nitrite Urine Bilirubin Urine Urobilinogen Ur Leukocyte Esterase Urine WBC (Auto) Urine RBC (Auto) U Hyaline Cast (Auto) U Epithel Cells (Auto) Urine Bacteria (Auto) Nasal Screen MRSA (PCR) Blood Type Antibody Screen 11/26/18 11/26/18 11/26/18 08:00 08:30 09:00 WBC RBC Hgb POC Hgb Hct POC Hct MCV MCH MCHC RDW Std Deviation RDW Coeff of [place] Carm[place] Plt Count MPV Immature Gran % (Auto) Neut % (Auto) Lymph % (Auto) [place] % (Auto) Eos % (Auto) Baso % (Auto) Reticulocyte % (Auto) Immature Gran # (Auto) Neut # (Auto) Lymph # (Auto) [place] # (Auto) Eos # (Auto) Baso # (Auto) Reticulocyte # Absolute Nucleated RBC Nucleated RBC % (auto) VBG pH VBG pCO2 VBG pO2 VBG HCO3 VBG O2 Saturation VBG Base Excess Barometric Pressure POC Sodium Sodium POC Potassium Potassium POC Chloride Chloride Carbon Dioxide POC Total CO2 Anion Gap POC Anion Gap POC BUN BUN Creatinine POC Creatinine Est Cr Clr Drug Dosing Est GFR ( Amer) Est GFR (Non-Af Amer) BUN/Creatinine Ratio Glucose POC Glucose 349 H* 337 H* POC Glucose (other) Lactate Calcium POC Ioniz Calcium Wallace Phosphorus Magnesium Iron TIBC Transferrin Ferritin Total Bilirubin Direct Bilirubin AST ALT Alkaline Phosphatase Troponin I Total Protein Albumin Globulin Albumin/Globulin Ratio Lipase Vitamin B12 Folate Beta-Hydroxybutyric Acd Procalcitonin TSH Urine Color Urine Appearance Urine pH Ur Specific [place] Urine Protein Urine Glucose (UA) Urine Ketones Urine Blood Urine Nitrite Urine Bilirubin Urine Urobilinogen Ur Leukocyte Esterase Urine WBC (Auto) Urine RBC (Auto) U Hyaline Cast (Auto) U Epithel Cells (Auto) Urine Bacteria (Auto) Nasal Screen MRSA (PCR) Negative Blood Type Antibody Screen 11/26/18 11/26/18 11/26/18 10:05 10:51 12:03 WBC RBC Hgb POC Hgb Hct POC Hct MCV MCH MCHC RDW Std Deviation RDW Coeff of [place] Plt Count MPV Immature Gran % (Auto) Neut % (Auto) Lymph % (Auto) [place] % (Auto) Eos % (Auto) Baso % (Auto) Reticulocyte % (Auto) Immature Gran # (Auto) Neut # (Auto) Lymph # (Auto) [place] # (Auto) Eos # (Auto) Baso # (Auto) Reticulocyte # Absolute Nucleated RBC Nucleated RBC % (auto) VBG pH VBG pCO2 VBG pO2 VBG HCO3 VBG O2 Saturation VBG Base Excess Barometric Pressure POC Sodium Sodium POC Potassium Potassium POC Chloride Chloride Carbon Dioxide POC Total CO2 Anion Gap POC Anion Gap POC BUN BUN Creatinine POC Creatinine Est Cr Clr Drug Dosing Est GFR ( Amer) Est GFR (Non-Af Amer) BUN/Creatinine Ratio Glucose POC Glucose 267 H 261 H 221 H POC Glucose (other) Lactate Calcium POC Ioniz Calcium Wallace Phosphorus Magnesium Iron TIBC Transferrin Ferritin Total Bilirubin Direct Bilirubin AST ALT Alkaline Phosphatase Troponin I Total Protein Albumin Globulin Albumin/Globulin Ratio Lipase Vitamin B12 Folate Beta-Hydroxybutyric Acd Procalcitonin TSH Urine Color Urine Appearance Urine pH Ur Specific [place] Urine Protein Urine Glucose (UA) Urine Ketones Urine Blood Urine Nitrite Urine Bilirubin Urine Urobilinogen Ur Leukocyte Esterase Urine WBC (Auto) Urine RBC (Auto) U Hyaline Cast (Auto) U Epithel Cells (Auto) Urine Bacteria (Auto) Nasal Screen MRSA (PCR) Blood Type Antibody Screen 11/26/18 11/26/18 12:39 12:39 WBC RBC Hgb POC Hgb Hct POC Hct MCV MCH MCHC RDW Std Deviation RDW Coeff of [place] Plt Count MPV Immature Gran % (Auto) Neut % (Auto) Lymph % (Auto) [place] % (Auto) Eos % (Auto) Baso % (Auto) Reticulocyte % (Auto) Immature Gran # (Auto) Neut # (Auto) Lymph # (Auto) [place] # (Auto) Eos # (Auto) Baso # (Auto) Reticulocyte # Absolute Nucleated RBC Nucleated RBC % (auto) VBG pH VBG pCO2 VBG pO2 VBG HCO3 VBG O2 Saturation VBG Base Excess Barometric Pressure POC Sodium Sodium Pending POC Potassium Potassium Pending POC Chloride Chloride Pending Carbon Dioxide Pending POC Total CO2 Anion Gap Pending POC Anion Gap POC BUN BUN Pending Creatinine Pending POC Creatinine Est Cr Clr Drug Dosing Pending Est GFR ( Amer) Pending Est GFR (Non-Af Amer) Pending BUN/Creatinine Ratio Pending Glucose Pending POC Glucose POC Glucose (other) Lactate Pending Calcium Pending POC Ioniz Calcium Wallace Phosphorus Pending Magnesium Iron TIBC Transferrin Ferritin Total Bilirubin Direct Bilirubin AST ALT Alkaline Phosphatase Troponin I Total Protein Albumin Globulin Albumin/Globulin Ratio Lipase Vitamin B12 Folate Beta-Hydroxybutyric Acd Procalcitonin TSH Urine Color Urine Appearance Urine pH Ur Specific [place] Urine Protein Urine Glucose (UA) Urine Ketones Urine Blood Urine Nitrite Urine Bilirubin Urine Urobilinogen Ur Leukocyte Esterase Urine WBC (Auto) Urine RBC (Auto) U Hyaline Cast (Auto) U Epithel Cells (Auto) Urine Bacteria (Auto) Nasal Screen MRSA (PCR) Blood Type Antibody Screen Medications Administered Home Medications cyanocobalamin (vit B-12) 1,000 mcg/mL injection solution 1,000 mcg SQ .COMPLEX 11/05/18 [History Confirmed 11/25/18] diazepam 5 mg tablet 5 mg PO .COMPLEX 11/05/18 [History Confirmed 11/25/18] dicyclomine 10 mg capsule 10 mg PO DAILY cap 11/05/18 [History Confirmed 11/25/18] hydrocodone 5 mg-acetaminophen 300 mg tablet 1 tab PO .COMPLEX PRN 11/05/18 [History Confirmed 11/25/18] insulin aspart U- 100 100 unit/mL subcutaneous solution See Rx Instructions SQ .COMPLEX 11/05/18 [History Confirmed 11/25/18] omega-3 fatty acids 1,000 mg capsule 1,000 mg PO DAILY 11/05/18 [History Confirmed 11/25/18] raloxifene 60 mg tablet 60 mg PO DAILY 11/05/18 [History Confirmed 11/25/18] carisoprodol [Soma] 0 mg PO UD PRN 11/25/18 [History Confirmed 11/25/18] diclofenac sodium 50 mg PO UD PRN 11/25/18 [History Confirmed 11/25/18] Active Medications Acetaminophen (Tylenol) 650 mg PO Q4H PRN PRN Reason: Pain or Fever Stop: 12/26/18 02:51 Hydrocodone Bitart/Acetaminophen ([place] 5/325) 1 tab PO Q4H PRN PRN Reason: Pain Stop: 12/10/18 02:59 Dextrose (Dextrose 50%) 25 - 50 ml IV UD PRN; Protocol PRN Reason: Hypoglycemia Protocol Stop: 12/26/18 03:14 Glucagon (Glucagen) 1 mg IM UD PRN; Protocol PRN Reason: Hypoglycemia Protocol Stop: 12/26/18 03:14 Glucose (Glucose 40%) 15 - 30 gm PO UD PRN; Protocol PRN Reason: Hypoglycemia Protocol Stop: 12/26/18 03:14 Glucose (Dex4 Glucose) 4 - 8 tabs PO UD PRN; Protocol PRN Reason: Hypoglycemia Protocol Stop: 12/26/18 03:14 Heparin Sodium (Porcine) (Heparin Sodium (Porcine)) 5,000 units SQ Q8 MALINA Stop: 12/26/18 13:59 Lorazepam (Ativan) 0.25 mg in 0.5 mls @ 0.5 mls/min IV Q4H PRN PRN Reason: Anxiety Stop: 12/26/18 02:51 Famotidine 20 mg/ Syringe 5 mls @ 2.5 mls/min IV BID MALINA Stop: 12/26/18 08:59 Last Admin: 11/26/18 09:03 Dose: 2.5 mls/min Documented by: Insulin Human Regular 250 (units/ Sodium Chloride) 250 mls @ 4.2 mls/hr IV .Q24H MALINA; Protocol Stop: 12/26/18 03:14 Last Titration: 11/26/18 12:00 Dose: 4.2 units/hr, 4.2 mls/hr Documented by: Dextrose/Lactated Ringer's (D5w And Lactated Ringers) 1,000 mls @ 100 mls/hr IV .Q10H PRN PRN Reason: BSG>180whileNPOonIVinsulin Stop: 12/26/18 03:29 Last Admin: 11/26/18 12:09 Dose: 100 mls/hr Documented by: Lactated Ringer's (Lr) 1,000 mls @ 250 mls/hr IV .Q4H MALINA Stop: 12/26/18 08:59 Last Infusion: 11/26/18 12:07 Dose: Infused Documented by: Imipenem/Cilastatin Sodium 300 (mg/ Dextrose) 106 mls @ 100 mls/hr IV Q6H MALINA; Protocol Stop: 12/06/18 09:59 Last Infusion: 11/26/18 10:38 Dose: Infused Documented by: Insulin Aspart (Novolog Flexpen) 0 units SC ACHS MALINA Stop: 12/26/18 07:29 Last Admin: 11/26/18 10:58 Dose: Not Given Documented by: Metoclopramide HCl (Reglan) 10 mg IV Q6H PRN PRN Reason: Nausea Stop: 12/26/18 02:51 Miscellaneous (Carbohydrates For Hypoglycemia) 15 - 30 gm PO PRN PRN PRN Reason: Hypoglycemia Treatment Stop: 12/26/18 03:14 Miscellaneous Information (Consult Glycemic Management Pharmacy) 1 ea N/A UD PRN PRN Reason: Consult Stop: 12/26/18 02:46 Miscellaneous Information (Consult) 1 ea N/A UD PRN PRN Reason: Consult Stop: 12/26/18 08:59 Miscellaneous Information (Consult) 1 ea N/A UD PRN PRN Reason: Consult Stop: 12/26/18 09:04 Nitroglycerin (Nitrostat) 0.4 mg SL UD PRN PRN Reason: Chest Pain Stop: 12/26/18 02:51 PG Care Time/CCT Total # of Minutes Spent Total Time Spent with Patient: Total time spent is greater than 50% in coordination of care (as documented) at patient's floor/unit and/or counseling patient: Critical Care Time: Yes Total Critical Care Time: 40 (1) DKA (diabetic ketoacidoses) Diabetes mellitus complication detail: without coma Diabetes mellitus type: type 1 Qualified Code(s): E10.10 - Type 1 diabetes mellitus with ketoacidosis without coma
--- NOTE | 2018-11-26 12:00 | Pharmacy Report ---
Pharmacy Glycemic Short Note 2 - Date of Service November 26, 2018 - Glycemic Short BSG Results (Last 24 hours): 11/25/18 11/25/18 11/26/18 21:20 23:27 03:07 Glucose 465 H* POC Glucose 458 H* POC Glucose (other) 478 H* 11/26/18 11/26/18 11/26/18 04:57 05:59 06:00 Glucose 430 H* POC Glucose 453 H* 414 H* POC Glucose (other) 11/26/18 11/26/18 11/26/18 07:04 08:00 09:00 Glucose POC Glucose 425 H* 349 H* 337 H* POC Glucose (other) 11/26/18 11/26/18 10:05 10:51 Glucose POC Glucose 267 H 261 H POC Glucose (other) OUTPATIENT ANTIDIABETIC REGIMEN: * Novolog insulin pump with CGM * Patient uses ~13 units of basal insulin per day, ~25 units total per day ( according to most recent info in [employer]) * HbA1c: 8.0% (Oct 2018) ASSESSMENT: * Ms Bruner is a 68yo diabetic female admitted with septic shock and DKA. * Patient was extremely reluctant to stop her insulin pump and was also not agreeable to finger-sticks for BSG monitoring. After some discussion, she did agree to disconnecting pump and transitioning to IV insulin infusion. * DKA is resolving since being initiated on an IV insulin infusion * Labs on admission: BSG 478, AG 13, CO2 21, pH 7.29, urine 2+ ketones, BHBA 14.39 * this morning: BSG still >400, AG 14, CO2 18, BHBA 15.06 * this afternoon: BSG 188, AG 8, CO2 21 * Patient will be maintained on IV insulin until her pump can be resumed, to make the transition back to her pump easier. * Patient is currently receiving Vanc/Zosyn for empiric antibiotic coverage. * She is receiving dextrose in her IVF (currently D5LR + 20mEq KCl @ 125mL/hr) and is NPO. PLAN FOR INPATIENT GLYCEMIC CONTROL: * Hold insulin pump * IV insulin infusion * Goal range: 110-180 mg/dL --> adjusted to 140-200 mg/dL, as pt is uncomfortable with BSGs dropping below 150mg/dL * titration per insulin infusion adjustment calculator PLAN FOR DISCHARGE: * Expect that patient may resume insulin pump for discharge. * Dr Baxter manages her insulin pump as an outpatient, and he has been in contact with patient this admission. He is aware of inpatient plan and is in agreement.
[2018-11-26 13:18] LABS: BUN Creatinine Ratio 24.7 (10-20); Calcium 7.2 mg/dl (8.5-10.1); Creatinine Clr Calc Pharmacy 41.1 ml/min; Est GFR (African American) 51.4; Est GFR (Non-African American) 44.4; Phosphorus 2.3 mg/dl (2.5-4.9); Potassium 3.4 mmol/L (3.5-5.1)
[2018-11-26] MEDS ORDERED: POTASSIUM CHLORIDE 20 MEQ/15 ML UDC PO STA (13:32)
[2018-11-26] MEDS ORDERED: POT PHOSPHATE MONOBASIC W/ SOD TAB PO STA (13:32)
[2018-11-26] MEDS ORDERED: POTASSIUM CHLORIDE 20 MEQ in D5W AND LACTATED RINGERS 1,000 ML IV SCH (14:00)
[2018-11-26] MEDS: HEPARIN SOD 5,000 UNIT/0.5 ML VIAL SQ SCH ×2 (14:06→20:55)
--- NOTE | 2018-11-26 16:32 | Hospitalist Progress Note ---
Date of Service November 26, 2018 Assessment & Plan (1) Hypotension: Total critical care time was 50 minutes. (2) DKA (diabetic ketoacidoses): Diabetes ketoacidosis, Rule out underlying infection, intra-abdominal pathology DKA resolved Discussed with pharmacy glycemic control, will continue insulin drip for now for blood glucose control Continue IV fluids with potassium Insulin pump on hold Rule out underlying infection Afebrile Positive leukocytosis 17,000 Procalcitonin elevated Urine culture: Pending Blood cultures: Pending Continue empiric imipenem Hypotension Likely secondary to volume depletion Rule out underlying infection Continue IV fluids Monitor closely Abdominal pain Resolving CT abdomen: Noted General surgery on board, doubt mesenteric ischemia Continue to monitor closely CAD as per records, not on aspirin prophylaxis as per patient preference secondary to PUD Esophagitis on CT Famotidine ordered Episodic anemia, hx pernicious anemia as per records Monitor hemoglobin DVT prophylaxis Lovenox subcu Full code Disposition pending Usually lives with family at home Case discussed with patient and her family at the bedside in detail and at length All questions answered They are all understanding, comfortable, agreeable with the plan of care Subjective Follow-up for DKA, abdominal pain Seen resting in bed, sleeping but easily awakened Family at the bedside visiting Patient states that she feels better today compared to yesterday but still feels tired Nausea and vomiting has resolved, denies chest pain, shortness of breath, headache Has minimal left-sided abdominal discomfort Denies any other symptoms Review of Systems Review of Systems: All systems reviewed & are unremarkable except as noted in HPI & below Physical Exam Physical Exam: General- oriented x 3, not in distress, speaks in sentences with no effort or accessory muscle use Head- atraumatic Eyes- PERRL, EOMI, anicteric ENT- oropharynx clear Neck- supple, no JVD, no adenopathy, no thyromegaly; carotids +2/2, no bruits appreciated Lungs- clear to auscultation bilaterally, no rales/wheezes Heart- normal rate, regular rhythm; no murmur, no gallop, no rub appreciated Abdomen- normal bowel sounds, nondistended, soft, nontender, no masses or hepatosplenomegaly Extremities- no pretibial edema, no calf tenderness; peripheral pulses intact Neuro- alert, oriented x 3; CN 2-12 grossly intact; motor 5/5 bilaterally;sensation 100% on all extremities; no other gross focal neurologic deficits Skin- warm & dry Results & Data Vital Signs (Past 12 Hours) Vital Signs Temp Pulse Pulse Resp BP BP Pulse Ox 11/26/18 15:00 87 14 99/55 L 97 11/26/18 14:00 87 17 103/49 L 93 11/26/18 13:00 86 15 105/64 96 11/26/18 12:00 36.8 C 88 19 111/56 L 97 11/26/18 11:00 90 23 85/62 L 92 11/26/18 10:30 94 H 14 109/56 L 98 11/26/18 10:00 98 H 18 108/55 L 98 11/26/18 09:30 101 H 17 119/41 L 96 11/26/18 09:00 99 H 24 90/58 L 95 11/26/18 08:31 36.7 C 99 H 21 94/40 L 96 11/26/18 07:30 106 H 11/26/18 07:06 37.0 C 104 H 18 77/46 L 95 (1) DKA (diabetic ketoacidoses) Diabetes mellitus complication detail: without coma Diabetes mellitus type: type 1 Qualified Code(s): E10.10 - Type 1 diabetes mellitus with ketoacidosis without coma
--- NOTE | 2018-11-26 16:49 | Infectious Disease Consult ---
Date of Consultation November 26, 2018 Assessment & Plan (1) Sepsis associated hypotension: 68-year-old diabetic female admitted with acute onset of picture of sepsis with elevated lactic acid and procalcitonin consistent with bacterial infection. No obvious source evident but with some mesenteric edema and abdominal complaints suggesting GI source. For now, patient will continue on broad- spectrum antibiotics pending final culture results. Will adjust once available. Will follow. History of Present Illness Reason for Consultation: Imipenem use, possible bowel sepsis Attending Physician: Carmelo Jones MD History of Present Illness 68-year-old female with history of type 1 diabetes mellitus on insulin pump, hyperlipidemia, pernicious anemia, coronary artery disease, who was in usual state of health until the day of admission when she awoke with severe epigastric abdominal pain, rated 8 out of 10 in intensity, associated with nausea and vomiting. Was brought to the hospital, and was found to be hypotensive with signs of sepsis as well as with elevated blood sugar. CT scan of the abdomen was obtained which showed mild mesenteric edema, but no other significant abdominal findings. Has been seen by surgery, and it was felt that abdominal exam was benign and no surgical intervention was planned. She has been started empirically on imipenem. Blood cultures are pending. Denies any cough, urinary complaints, diarrhea. Allergies Allergy/AdvReac Type Severity Reaction Status Date / Time Penicillins Allergy Unknown . Verified 11/25/18 23:04 promethazine Allergy Unknown . Verified 11/25/18 23:04 Sulfa (Sulfonamide AdvReac Unknown RASH,VOMITI Verified 11/25/18 23:04 Antibiotics) NG Home Medications Home Medications Medication Instructions Recorded Confirmed Type cyanocobalamin (vit B-12) 1,000 1,000 mcg SQ .COMPLEX 11/05/18 11/25/18 History mcg/mL injection solution diazepam 5 mg tablet 5 mg PO .COMPLEX 11/05/18 11/25/18 History dicyclomine 10 mg capsule 10 mg PO DAILY cap 11/05/18 11/25/18 History hydrocodone 5 mg-acetaminophen 300 1 tab PO .COMPLEX PRN 11/05/18 11/25/18 History mg tablet insulin aspart U- 100 100 unit/mL See Rx Instructions SQ .COMPLEX 11/05/18 11/25/18 History subcutaneous solution omega-3 fatty acids 1,000 mg 1,000 mg PO DAILY 11/05/18 11/25/18 History capsule raloxifene 60 mg tablet 60 mg PO DAILY 11/05/18 11/25/18 History carisoprodol [Soma] 0 mg PO UD PRN 11/25/18 11/25/18 History diclofenac sodium 50 mg PO UD PRN 11/25/18 11/25/18 History Patient History Medical History Type 1 diabetes (Chronic) H/O: hysterectomy Surgical History History of appendectomy Hx of cholecystectomy Social History Preferred Language: Nauruan Communication Ability: Effective Deputy [employer] Director Required: No Beliefs That Will Affect Care: [employer] Beliefs: Oriental orthodox Current Living Situation: Alone Other Information That Helps Us Care for You: No Feels Safe at Home: Yes Safety Concerns: Feels Safe At This Time Smoking Status: Never smoker Hx Alcohol Use: No Hx Substance Use: No Review of Systems Review of Systems: All systems reviewed & are unremarkable except as noted in HPI & below Physical Exam Constitutional: WD/WN, vitals as above comfortable; no acute distress Eyes: PERRL, conjunctivae normal, anicteric sclerae ENMT: external ear and nose normal, oropharynx normal Neck: trachea midline, no thyromegaly neck nontender Respiratory: normal respiratory effort, lungs clear to auscultation normal percussion; does not use accessory muscles Cardiovascular: Rate/Rhythm: regular rate and regular rhythm Heart Sounds: normal S1 and normal S2; no gallop, no murmur and no cardiac rub Vessels: normal peripheral pulses; no JVD Gastrointestinal (Abdomen): Inspection/Auscultation: abdomen normal to inspection and normal bowel sounds Percussion/Palpation: + abdomen tender and abdomen soft; no hepatosplenomegaly and no abdominal mass Musculoskeletal: no cyanosis or clubbing, extremities motor strength 5/5 Spine: thoracic spine normal to inspection and lumbar spine normal to inspection; no cervical spinal tenderness Skin: no rashes, warm and dry normal turgor; no lesions Neurologic: patellar DTR's 2+ bilat, sensation intact no focal motor deficits Psychiatric: A+Ox3, euthymic affect Orientation: cooperative Lymphatic: no cervical or axillary lymphadenopathy no inguinal lymphadenopathy Results & Data Vital Signs (Past 12 Hours) Vital Signs Temp Pulse Pulse Resp BP BP Pulse Ox 11/26/18 15:00 87 14 99/55 L 97 11/26/18 14:00 87 17 103/49 L 93 11/26/18 13:00 86 15 105/64 96 11/26/18 12:00 36.8 C 88 19 111/56 L 97 11/26/18 11:00 90 23 85/62 L 92 11/26/18 10:30 94 H 14 109/56 L 98 11/26/18 10:00 98 H 18 108/55 L 98 11/26/18 09:30 101 H 17 119/41 L 96 11/26/18 09:00 99 H 24 90/58 L 95 11/26/18 08:31 36.7 C 99 H 21 94/40 L 96 11/26/18 07:30 106 H 11/26/18 07:06 37.0 C 104 H 18 77/46 L 95 Laboratory Results Short CBC 11/25/18 11/26/18 Range/Units 23:27 05:59 WBC 15.56 H 17.63 H (4.8-10.8) K/uL Hgb 11.9 L 10.7 L (12.0-16.0) g/dL Hct 35.9 L 32.4 L (37-47) % Plt Count 241 222 (130-400) K/uL BMP 11/25/18 11/26/18 11/26/18 23:27 05:59 12:39 Sodium 138 141 143 Potassium 4.8 4.6 3.4 L D Chloride 104 109 H 114 H Carbon Dioxide 21 18 L 21 BUN 33 H 35 H 31 H Creatinine 1.19 1.53 H D 1.26 H Glucose 465 H* 430 H* 188 H Calcium 8.4 L 8.0 L 7.2 L Cardiac Enzymes 11/25/18 Range/Units 23:27 Troponin I < 0.015 (0-0.045) ng/ml Liver Function 11/25/18 Range/Units 23:27 Total Bilirubin 0.7 (0.2-1) mg/dl Direct Bilirubin 0.3 H (0-0.2) mg/dl AST 13 L (15-37) U/L ALT 14 (12-78) U/L Alkaline Phosphatase 82 (45-117) U/L Albumin 3.4 (3.4-5.0) gm/dl Urine 11/26/18 Range/Units 01:20 Urine Color Yellow Urine Appearance Clear (Clear) Urine pH 5.0 (4.5-7.5) Ur Specific [place] 1.024 (1.000-1.030) Urine Protein Negative (Negative) Urine Glucose (UA) 3+ H (Negative) Diagnostic Findings cc: ~ CT abd pelvis IV con only CLINICAL HISTORY: 68 years-old Female presenting with abd pain. TECHNIQUE: Multidetector CT of the abdomen and pelvis was performed after the administration of intravenous contrast. IV contrast: 94 mL of Optiray 320. One or more dose lowering techniques were used consistent with the principles of ALARA (as low as reasonably achievable), including automatic exposure control, mA or kV adjustment to individual patient size, and/or use of iterative reconstruction. COMPARISON: 08/10/2013. CT DOSE (mGy.cm): The estimated cumulative dose is 315.21 mGy.cm. FINDINGS: Bottle Selector topogram: Unremarkable. Lung bases: Normal heart size. No pericardial or pleural effusion. Minimal dependent changes likely atelectasis. Liver: Normal morphology. Density suggestive of hepatic steatosis. No focal lesion. Patent hepatic vasculature. Biliary: No intrahepatic or extrahepatic biliary ductal dilatation. Gallbladder surgically absent. Pancreas: Mild parenchymal atrophy. Spleen: Normal. Splenule noted. Adrenal glands: Normal. Kidneys and ureters: Normal. No hydronephrosis. Bladder: Incompletely evaluated secondary to underdistention. Pelvic organs: Uterus surgically absent. No adnexal masses. Bowel: Normal appendix. No bowel obstruction. Small hiatal hernia. Peritoneal cavity: Small free fluid in the pelvis. No free intraperitoneal gas. Lymph nodes: No enlarged lymph nodes in the abdomen or pelvis. Vasculature: Aorta and IVC patent and normal in caliber. Abdominal wall: Small fat-containing umbilical hernia. Musculoskeletal: Osteopenia. Coarsened trabecular appearance may relate to osteopenia or, less likely, indicate developing Paget's disease. IMPRESSION: 1. Hepatic steatosis. Correlate with liver function tests to exclude steatohepatitis as a cause for abdominal pain. 2. Small hiatal hernia. 3. Small free fluid in the pelvis may be physiologic. 4. Osteopenia. Electronically signed by: Ron Gaitan M.D. 11/26/2018 6:20 AM PG Care Time/CCT Total # of Minutes Spent Total Time Spent with Patient: Total time spent is greater than 50% in coordination of care (as documented) at patient's floor/unit and/or counseling patient:
[2018-11-26] MEDS: METOCLOPRAMIDE HCL INJ 5 MG/ML 2 ML VIAL IV PRN (18:36)
[2018-11-26 18:59] LABS: BUN Creatinine Ratio 26.6 (10-20); Calcium 7.3 mg/dl (8.5-10.1); Creatinine Clr Calc Pharmacy 48.4 ml/min; Est GFR (African American) 62.7; Est GFR (Non-African American) 54.1; Phosphorus 2.6 mg/dl (2.5-4.9); Potassium 5.4 mmol/L (3.5-5.1)
[2018-11-26 19:11] LABS: Beta-Hydroxybutyrate 1.43 mg/dl (0.2-2.81)
[2018-11-26 19:58] LABS: BUN Creatinine Ratio 27.8 (10-20); Calcium 7.2 mg/dl (8.5-10.1); Creatinine Clr Calc Pharmacy 48.9 ml/min; Est GFR (African American) 63.4; Est GFR (Non-African American) 54.7; Phosphorus 2.8 mg/dl (2.5-4.9); Potassium 4.5 mmol/L (3.5-5.1)
[2018-11-26] MEDS: D5W AND LACTATED RINGERS 1,000 ML IV SCH (20:27)
[2018-11-27 00:38] LABS: BUN Creatinine Ratio 27.1 (10-20); Creatinine Clr Calc Pharmacy 58.2 ml/min; Est GFR (African American) 78.3; Est GFR (Non-African American) 67.5; Potassium 4.1 mmol/L (3.5-5.1)
[2018-11-27 00:39] LABS: Phosphorus 2.6 mg/dl (2.5-4.9)
[2018-11-27] MEDS: IMIPENEM/CILASTATIN SODIUM 300 MG in DEXTROSE 5% 100 ML IV SCH ×4 (03:10→21:44)
[2018-11-27] MEDS: INSULIN REGULAR 250 UNITS in SODIUM CHLORIDE 0.9% 247.5 ML IV SCH ×2 (04:29→05:17)
[2018-11-27] MEDS: D5W AND LACTATED RINGERS 1,000 ML IV SCH (04:31)
[2018-11-27] MEDS: HEPARIN SOD 5,000 UNIT/0.5 ML VIAL SQ SCH ×3 (04:55→21:44)
[2018-11-27 04:59] LABS: Hematocrit (blood only) 28.4 % (37-47); Hemoglobin 9.7 g/dL (12.0-16.0); Immature Granulocytes # (auto) 0.03 K/uL (0.00-0.02); Immature Granulocytes % (auto) 0.2 %; Lymphocytes % (auto) 7.6 %; Mean Corpuscular Hemoglobin 30.1 pg (25-34); Mean Corpuscular Hgb Conc 34.2 g/dL (32-36); Mean Corpuscular Volume 88.2 fL (80-100); Mean Platelet Volume 9.7 fL (7.4-10.4); Monocytes # (auto) 0.81 K/uL (0.11-0.59); Monocytes % (auto) 5.6 %; Neutrophils # (auto) 12.49 K/uL (1.4-6.5); Neutrophils % (auto) 86.6 %; Platelet Count 183 K/uL (130-400); RDW Coefficient of Variation 14.6 % (11.5-14.5); Red Blood Count 3.22 M/uL (4.2-5.4); White Blood Count 14.43 K/uL (4.8-10.8)
[2018-11-27 05:02] LABS: Base Excess VBG -2.1 mEq/L; HCO3 VBG 22 mmol/L; Oxygen Saturation VBG 74.3 %; PCO2 VBG 36 mmHg (38-50); PO2 VBG 41 mmHg; pH VBG 7.41 (7.36-7.41)
[2018-11-27 05:16] LABS: BUN Creatinine Ratio 22.4 (10-20); Calcium 7.2 mg/dl (8.5-10.1); Creatinine Clr Calc Pharmacy 55.7 ml/min; Est GFR (African American) 74.2; Phosphorus 2.3 mg/dl (2.5-4.9); Potassium 3.8 mmol/L (3.5-5.1)
--- NOTE | 2018-11-27 07:05 | Critical Care Progress Note ---
Date of Service November 27, 2018 Assessment & Plan (1) DKA (diabetic ketoacidoses): Reason Critically Ill: 68-year-old female presents with hypotension and found to be in DKA, treating for possible sepsis Neuro - CAM ICU: Negative Cardiac - Hypotensionresolved with fluid resuscitation -Likely secondary to sepsis versus hypovolemia from DKA/gastroenteritis, see management below Previous MItroponin negative, no ST elevation on EKG, normal sinus rhythm, TTE unchanged from previous study -Patient not on aspirin therapy per patient preference in setting of PUD Respiratory - No pulmonary disease on chest x-ray Patient maintain sats on room air, monitor GI - Gastroenteritispatient presented with nausea, vomiting, and diarrhea with complaints of abdominal pain; symptoms have since resolved -CT abdomen suggested hepatic steatosis (LFTs negative), small free fluid in pelvis -General surgery was consulted for mild mesenteric edema, no surgical intervention was recommended at this time -Patient was placed on Primaxin and ID consulted Peptic ulcer diseasecontinue famotidine RENAL/LYTES - Metabolic acidosispatient has mild DKA with anion gap 14, also has lactic acidosis of 5.0; gap closed and LA WNL -Positive for ketones on UA -Resolved with fluid resuscitation and insulin infusion -Monitor daily BMPs -See hyperglycemia treatments below AKIresolved; was likely prerenal in the setting of hypovolemia secondary to nausea, vomiting, diarrhea -resolved with fluid resuscitation -Monitor with routine BMP -Avoid NSAIDs, avoid nephrotoxins - Strict I's and O's ENDO - Type I diabetic/DKABHA 15, 8 gap 14, pH 7.29 -Blood glucoses were in 400s in the ED, uncontrolled with insulin pump, was disconnected and placed on IV insulin infusion -transitioning insulin drip to basal/ACHS - hyperglycemic protocol - DM 1 carb diet HEME - History of pernicious anemiaH&H currently stable -We will monitor and transfuse as necessary ID - Sepsisprocalcitonin and lactate elevated in the setting of hypotension -Blood cultures negative on preliminary and urine culture pending -Started on empiric Primaxin -CT abdomen as above -ID consulted, follow-up recs LINES/IV ACCESS - Peripheral IVs DVT PROPHYLAXIS - Heparin Thank you for allowing us to participate in the care of this patient. Please refer to my attending physician's documentation for any further recommendations. (2) Hypotension: (3) Sepsis associated hypotension: (4) Anxiety: (5) Dyslipidemia: (6) Diabetes: Supervising Physician Co-Signing Physician Notes Patient seen and examined independently. Discussed with nurse practitioner on rounds as well as with patient, general surgery, and hospitalist. The patient is done well overnight. Her blood pressure issues have resolved completely. She remains afebrile with a normal white blood cell count. Her procalcitonin is high of unclear etiology. She is on broad-spectrum antibiotics currently. Her glucose is under good control currently. The patient is stable to return to the floor under the care of the hospitalist. I recommended continuing antibiotics under the direction of infectious disease. Glycemic control and management of her diabetes per primary service. Will sign off once the patient leaves the ICU. Feel free to contact us with additional pulmonary critical care issues. Subjective This morning patient has significantly improved from metabolic aspect. She has also had resolve in nausea, vomiting, diarrhea. We are transitioning IV insulin to basal/carb coverage and adding diet. Patient has remained hemodynamically stable without need for vasopressors or oxygen supplementation. She is now stable for downgrade from ICU status at this time. She denies headache, syncope, shortness of breath, chest pain, palpitations, nausea or vomiting, abdominal pain, or diarrhea. Review of Systems Review of Systems: All systems reviewed & are unremarkable except as noted in HPI & below Physical Exam Constitutional: WD/WN, vitals as above Eyes: PERRL, conjunctivae normal, anicteric sclerae ENMT: external ear and nose normal, oropharynx normal Neck: trachea midline, no thyromegaly Respiratory: normal respiratory effort, lungs clear to auscultation Cardiovascular: RRR, no murmur, no edema Heart Sounds: normal S1 and normal S2 Gastrointestinal (Abdomen): normal bowel sounds, soft, nontender, no hepatosplenomegaly Musculoskeletal: no cyanosis or clubbing, extremities motor strength 5/5 Skin: no rashes, warm and dry Neurologic: PERRL, EOMI, accommodation nl, no face palsy, no dysarthria Psychiatric: A+Ox3, euthymic affect Results & Data Vital Signs (Past 12 Hours) Vital Signs Temp Pulse Resp BP Pulse Ox 11/27/18 06:00 82 16 128/77 94 11/27/18 05:00 81 22 127/74 96 11/27/18 04:00 37.0 C 77 10 L 123/66 97 11/27/18 03:00 85 17 111/72 97 11/27/18 02:00 82 20 118/55 L 95 11/27/18 01:00 85 14 113/59 L 95 11/27/18 00:00 37.1 C 86 15 108/54 L 95 11/26/18 23:00 89 15 98/58 L 97 11/26/18 22:00 82 15 100/54 L 97 11/26/18 21:00 88 14 101/50 L 95 11/26/18 20:01 37.0 C 94 H 14 115/60 92 Laboratory Results Laboratory Results - last 24 hr 11/26/18 11/26/18 11/26/18 05:40 08:00 08:30 WBC RBC Hgb Hct MCV MCH MCHC RDW Std Deviation RDW Coeff of Maria [place]en Plt Count MPV Immature Gran % (Auto) Neut % (Auto) Lymph % (Auto) Marion % (Auto) Eos % (Auto) Baso % (Auto) Immature Gran # (Auto) Neut # (Auto) Lymph # (Auto) Marion # (Auto) Eos # (Auto) Baso # (Auto) VBG pH VBG pCO2 VBG pO2 VBG HCO3 VBG O2 Saturation VBG Base Excess Sodium Potassium Chloride Carbon Dioxide Anion Gap BUN Creatinine Est Cr Clr Drug Dosing Est GFR ( Amer) Est GFR (Non-Af Amer) BUN/Creatinine Ratio Glucose POC Glucose 349 H* Lactate Calcium Phosphorus Magnesium Vitamin B12 > 2000 H Folate 10.99 Beta-Hydroxybutyric Acd Procalcitonin Nasal Screen MRSA (PCR) Negative Random Vancomycin 11/26/18 11/26/18 11/26/18 09:00 10:05 10:51 WBC RBC Hgb Hct MCV MCH MCHC RDW Std Deviation RDW Coeff of [place] Plt Count MPV Immature Gran % (Auto) Neut % (Auto) Lymph % (Auto) Marion % (Auto) Eos % (Auto) Baso % (Auto) Immature Gran # (Auto) Neut # (Auto) Lymph # (Auto) Marion # (Auto) Eos # (Auto) Baso # (Auto) VBG pH VBG pCO2 VBG pO2 VBG HCO3 VBG O2 Saturation VBG Base Excess Sodium Potassium Chloride Carbon Dioxide Anion Gap BUN Creatinine Est Cr Clr Drug Dosing Est GFR ( Amer) Est GFR (Non-Af Amer) BUN/Creatinine Ratio Glucose POC Glucose 337 H* 267 H 261 H Lactate Calcium Phosphorus Magnesium Vitamin B12 Folate Beta-Hydroxybutyric Acd Procalcitonin Nasal Screen MRSA (PCR) Random Vancomycin 11/26/18 11/26/18 11/26/18 12:03 12:39 12:39 WBC RBC Hgb Hct MCV MCH MCHC RDW Std Deviation RDW Coeff of [place] Plt Count MPV Immature Gran % (Auto) Neut % (Auto) Lymph % (Auto) Marion % (Auto) Eos % (Auto) Baso % (Auto) Immature Gran # (Auto) Neut # (Auto) Lymph # (Auto) Marion # (Auto) Eos # (Auto) Baso # (Auto) VBG pH VBG pCO2 VBG pO2 VBG HCO3 VBG O2 Saturation VBG Base Excess Sodium 143 Potassium 3.4 L D Chloride 114 H Carbon Dioxide 21 Anion Gap 8.0 BUN 31 H Creatinine 1.26 H Est Cr Clr Drug Dosing 41.1 Est GFR ( Amer) 51.4 Est GFR (Non-Af Amer) 44.4 BUN/Creatinine Ratio 24.7 H Glucose 188 H POC Glucose 221 H Lactate 2.9 H* Calcium 7.2 L Phosphorus 2.3 L D Magnesium Vitamin B12 Folate Beta-Hydroxybutyric Acd Procalcitonin Nasal Screen MRSA (PCR) Random Vancomycin 11/26/18 11/26/18 11/26/18 12:53 14:04 15:07 WBC RBC Hgb Hct MCV MCH MCHC RDW Std Deviation RDW Coeff of [place] Plt Count MPV Immature Gran % (Auto) Neut % (Auto) Lymph % (Auto) Marion % (Auto) Eos % (Auto) Baso % (Auto) Immature Gran # (Auto) Neut # (Auto) Lymph # (Auto) Marion # (Auto) Eos # (Auto) Baso # (Auto) VBG pH VBG pCO2 VBG pO2 VBG HCO3 VBG O2 Saturation VBG Base Excess Sodium Potassium Chloride Carbon Dioxide Anion Gap BUN Creatinine Est Cr Clr Drug Dosing Est GFR ( Amer) Est GFR (Non-Af Amer) BUN/Creatinine Ratio Glucose POC Glucose 200 H 170 H 154 H Lactate Calcium Phosphorus Magnesium Vitamin B12 Folate Beta-Hydroxybutyric Acd Procalcitonin Nasal Screen MRSA (PCR) Random Vancomycin 11/26/18 11/26/18 11/26/18 16:00 16:59 18:05 WBC RBC Hgb Hct MCV MCH MCHC RDW Std Deviation RDW Coeff of [place] Plt Count MPV Immature Gran % (Auto) Neut % (Auto) Lymph % (Auto) Marion % (Auto) Eos % (Auto) Baso % (Auto) Immature Gran # (Auto) Neut # (Auto) Lymph # (Auto) Marion # (Auto) Eos # (Auto) Baso # (Auto) VBG pH VBG pCO2 VBG pO2 VBG HCO3 VBG O2 Saturation VBG Base Excess Sodium Potassium Chloride Carbon Dioxide Anion Gap BUN Creatinine Est Cr Clr Drug Dosing Est GFR ( Amer) Est GFR (Non-Af Amer) BUN/Creatinine Ratio Glucose POC Glucose 144 H 160 H 139 H Lactate Calcium Phosphorus Magnesium Vitamin B12 Folate Beta-Hydroxybutyric Acd Procalcitonin Nasal Screen MRSA (PCR) Random Vancomycin 11/26/18 11/26/18 11/26/18 18:13 19:00 19:24 WBC RBC Hgb Hct MCV MCH MCHC RDW Std Deviation RDW Coeff of [place] Plt Count MPV Immature Gran % (Auto) Neut % (Auto) Lymph % (Auto) Marion % (Auto) Eos % (Auto) Baso % (Auto) Immature Gran # (Auto) Neut # (Auto) Lymph # (Auto) Marion # (Auto) Eos # (Auto) Baso # (Auto) VBG pH VBG pCO2 VBG pO2 VBG HCO3 VBG O2 Saturation VBG Base Excess Sodium 142 144 Potassium 5.4 H D 4.5 D Chloride 115 H 116 H Carbon Dioxide 21 22 Anion Gap 6.0 6.0 BUN 29 H 30 H Creatinine 1.07 1.06 Est Cr Clr Drug Dosing 48.4 48.9 Est GFR ( Amer) 62.7 63.4 Est GFR (Non-Af Amer) 54.1 54.7 BUN/Creatinine Ratio 26.6 H 27.8 H Glucose 310 H* 167 H POC Glucose 168 H Lactate Calcium 7.3 L 7.2 L Phosphorus 2.6 2.8 Magnesium 2.0 Vitamin B12 Folate Beta-Hydroxybutyric Acd 1.43 Procalcitonin Nasal Screen MRSA (PCR) Random Vancomycin 11/26/18 11/26/18 11/26/18 19:24 19:57 21:00 WBC RBC Hgb Hct MCV MCH MCHC RDW Std Deviation RDW Coeff of [place] Plt Count MPV Immature Gran % (Auto) Neut % (Auto) Lymph % (Auto) Marion % (Auto) Eos % (Auto) Baso % (Auto) Immature Gran # (Auto) Neut # (Auto) Lymph # (Auto) Marion # (Auto) Eos # (Auto) Baso # (Auto) VBG pH VBG pCO2 VBG pO2 VBG HCO3 VBG O2 Saturation VBG Base Excess Sodium Potassium Chloride Carbon Dioxide Anion Gap BUN Creatinine Est Cr Clr Drug Dosing Est GFR ( Amer) Est GFR (Non-Af Amer) BUN/Creatinine Ratio Glucose POC Glucose 142 H 148 H Lactate 1.8 Calcium Phosphorus Magnesium Vitamin B12 Folate Beta-Hydroxybutyric Acd Procalcitonin Nasal Screen MRSA (PCR) Random Vancomycin 11/26/18 11/26/18 11/27/18 21:52 23:13 00:13 WBC RBC Hgb Hct MCV MCH MCHC RDW Std Deviation RDW Coeff of [place] Plt Count MPV Immature Gran % (Auto) Neut % (Auto) Lymph % (Auto) Marion % (Auto) Eos % (Auto) Baso % (Auto) Immature Gran # (Auto) Neut # (Auto) Lymph # (Auto) Marion # (Auto) Eos # (Auto) Baso # (Auto) VBG pH VBG pCO2 VBG pO2 VBG HCO3 VBG O2 Saturation VBG Base Excess Sodium 145 Potassium 4.1 Chloride 116 H Carbon Dioxide 23 Anion Gap 6.0 BUN 24 H Creatinine 0.89 Est Cr Clr Drug Dosing 58.2 Est GFR ( Amer) 78.3 Est GFR (Non-Af Amer) 67.5 BUN/Creatinine Ratio 27.1 H Glucose 179 H POC Glucose 146 H 168 H Lactate Calcium 7.0 L Phosphorus 2.6 Magnesium Vitamin B12 Folate Beta-Hydroxybutyric Acd Procalcitonin Nasal Screen MRSA (PCR) Random Vancomycin 11/27/18 11/27/18 11/27/18 00:54 03:01 04:47 WBC RBC Hgb Hct MCV MCH MCHC RDW Std Deviation RDW Coeff of [place] Plt Count MPV Immature Gran % (Auto) Neut % (Auto) Lymph % (Auto) Marion % (Auto) Eos % (Auto) Baso % (Auto) Immature Gran # (Auto) Neut # (Auto) Lymph # (Auto) Marion # (Auto) Eos # (Auto) Baso # (Auto) VBG pH VBG pCO2 VBG pO2 VBG HCO3 VBG O2 Saturation VBG Base Excess Sodium Potassium Chloride Carbon Dioxide Anion Gap BUN Creatinine Est Cr Clr Drug Dosing Est GFR ( Amer) Est GFR (Non-Af Amer) BUN/Creatinine Ratio Glucose POC Glucose 169 H 173 H Lactate Calcium Phosphorus Magnesium Vitamin B12 Folate Beta-Hydroxybutyric Acd Procalcitonin Nasal Screen MRSA (PCR) Random Vancomycin 11.2 11/27/18 11/27/18 11/27/18 04:47 04:47 04:47 WBC 14.43 H RBC 3.22 L Hgb 9.7 L Hct 28.4 L MCV 88.2 MCH 30.1 MCHC 34.2 RDW Std Deviation 48.0 H RDW Coeff of Maria Del Carmen 14.6 H Plt Count 183 MPV 9.7 Immature Gran % (Auto) 0.2 Neut % (Auto) 86.6 Lymph % (Auto) 7.6 Marion % (Auto) 5.6 Eos % (Auto) 0.0 Baso % (Auto) 0.0 Immature Gran # (Auto) 0.03 H Neut # (Auto) 12.49 H Lymph # (Auto) 1.10 L Marion # (Auto) 0.81 H Eos # (Auto) 0.00 Baso # (Auto) 0.00 VBG pH VBG pCO2 VBG pO2 VBG HCO3 VBG O2 Saturation VBG Base Excess Sodium 144 Potassium 3.8 Chloride 115 H Carbon Dioxide 25 Anion Gap 4.0 BUN 21 H Creatinine 0.93 Est Cr Clr Drug Dosing 55.7 Est GFR ( Amer) 74.2 Est GFR (Non-Af Amer) 64.0 BUN/Creatinine Ratio 22.4 H Glucose 153 H POC Glucose Lactate 1.1 Calcium 7.2 L Phosphorus 2.3 L Magnesium 2.0 Vitamin B12 Folate Beta-Hydroxybutyric Acd Procalcitonin Nasal Screen MRSA (PCR) Random Vancomycin 11/27/18 11/27/18 11/27/18 04:47 04:47 04:51 WBC RBC Hgb Hct MCV MCH MCHC RDW Std Deviation RDW Coeff of Maria Del [place] Plt Count MPV Immature Gran % (Auto) Neut % (Auto) Lymph % (Auto) Marion % (Auto) Eos % (Auto) Baso % (Auto) Immature Gran # (Auto) Neut # (Auto) Lymph # (Auto) Marion # (Auto) Eos # (Auto) Baso # (Auto) VBG pH 7.41 VBG pCO2 36 L VBG pO2 41 VBG HCO3 22 VBG O2 Saturation 74.3 VBG Base Excess -2.1 Sodium Potassium Chloride Carbon Dioxide Anion Gap BUN Creatinine Est Cr Clr Drug Dosing Est GFR ( Amer) Est GFR (Non-Af Amer) BUN/Creatinine Ratio Glucose POC Glucose 156 H Lactate Calcium Phosphorus Magnesium Vitamin B12 Folate Beta-Hydroxybutyric Acd Procalcitonin 28.11 H Nasal Screen MRSA (PCR) Random Vancomycin 11/27/18 07:51 WBC RBC Hgb Hct MCV MCH MCHC RDW Std Deviation RDW Coeff of Maria Del [place] Plt Count MPV Immature Gran % (Auto) Neut % (Auto) Lymph % (Auto) Marion % (Auto) Eos % (Auto) Baso % (Auto) Immature Gran # (Auto) Neut # (Auto) Lymph # (Auto) Marion # (Auto) Eos # (Auto) Baso # (Auto) VBG pH VBG pCO2 VBG pO2 VBG HCO3 VBG O2 Saturation VBG Base Excess Sodium Potassium Chloride Carbon Dioxide Anion Gap BUN Creatinine Est Cr Clr Drug Dosing Est GFR ( Amer) Est GFR (Non-Af Amer) BUN/Creatinine Ratio Glucose POC Glucose 132 H Lactate Calcium Phosphorus Magnesium Vitamin B12 Folate Beta-Hydroxybutyric Acd Procalcitonin Nasal Screen MRSA (PCR) Random Vancomycin Medications Administered Home Medications cyanocobalamin (vit B-12) 1,000 mcg/mL injection solution 1,000 mcg SQ .COMPLEX 11/05/18 [History Confirmed 11/25/18] diazepam 5 mg tablet 5 mg PO .COMPLEX 11/05/18 [History Confirmed 11/25/18] dicyclomine 10 mg capsule 10 mg PO DAILY cap 11/05/18 [History Confirmed 11/25/18] hydrocodone 5 mg-acetaminophen 300 mg tablet 1 tab PO .COMPLEX PRN 11/05/18 [History Confirmed 11/25/18] insulin aspart U- 100 100 unit/mL subcutaneous solution See Rx Instructions SQ .COMPLEX 11/05/18 [History Confirmed 11/25/18] omega-3 fatty acids 1,000 mg capsule 1,000 mg PO DAILY 11/05/18 [History Confirmed 11/25/18] raloxifene 60 mg tablet 60 mg PO DAILY 11/05/18 [History Confirmed 11/25/18] carisoprodol [Soma] 0 mg PO UD PRN 11/25/18 [History Confirmed 11/25/18] diclofenac sodium 50 mg PO UD PRN 11/25/18 [History Confirmed 11/25/18] Active Medications Acetaminophen (Tylenol) 650 mg PO Q4H PRN PRN Reason: Pain or Fever Stop: 12/26/18 02:51 Hydrocodone Bitart/Acetaminophen ([place] 5/325) 1 tab PO Q4H PRN PRN Reason: Pain Stop: 12/10/18 02:59 Dextrose (Dextrose 50%) 25 - 50 ml IV UD PRN; Protocol PRN Reason: Hypoglycemia Protocol Stop: 12/26/18 03:14 Glucagon (Glucagen) 1 mg IM UD PRN; Protocol PRN Reason: Hypoglycemia Protocol Stop: 12/26/18 03:14 Glucose (Glucose 40%) 15 - 30 gm PO UD PRN; Protocol PRN Reason: Hypoglycemia Protocol Stop: 12/26/18 03:14 Glucose (Dex4 Glucose) 4 - 8 tabs PO UD PRN; Protocol PRN Reason: Hypoglycemia Protocol Stop: 12/26/18 03:14 Heparin Sodium (Porcine) (Heparin Sodium (Porcine)) 5,000 units SQ Q8 MALINA Stop: 12/26/18 13:59 Last Admin: 11/27/18 04:55 Dose: 5,000 units Documented by: Lorazepam (Ativan) 0.25 mg in 0.5 mls @ 0.5 mls/min IV Q4H PRN PRN Reason: Anxiety Stop: 12/26/18 02:51 Insulin Human Regular 250 (units/ Sodium Chloride) 250 mls @ 1.3 mls/hr IV .Q24H MALINA; Protocol Stop: 12/26/18 03:14 Last Titration: 11/27/18 07:55 Dose: 1.3 units/hr, 1.3 mls/hr Documented by: Imipenem/Cilastatin Sodium 300 (mg/ Dextrose) 106 mls @ 100 mls/hr IV Q6H MALINA; Protocol Stop: 12/06/18 09:59 Last Admin: 11/27/18 09:26 Dose: 100 mls/hr Documented by: Lactated Ringer's (Lr) 1,000 mls @ 60 mls/hr IV .[id number] MALINA Stop: 12/27/18 09:29 Last Admin: 11/27/18 09:30 Dose: 60 mls/hr Documented by: Insulin Aspart (Novolog Flexpen) 0 units SC ACHS [facility] Stop: 12/26/18 07:29 Last Admin: 11/27/18 08:15 Dose: Not Given Documented by: Insulin Glargine (Lantus Solostar Pen) 15 units SC BID [facility] Stop: 12/27/18 08:59 Last Admin: 11/27/18 07:34 Dose: 15 units Documented by: Metoclopramide HCl (Reglan) 10 mg IV Q6H PRN PRN Reason: Nausea Stop: 12/26/18 02:51 Last Admin: 11/26/18 18:36 Dose: 10 mg Documented by: Miscellaneous (Carbohydrates For Hypoglycemia) 15 - 30 gm PO PRN PRN PRN Reason: Hypoglycemia Treatment Stop: 12/26/18 03:14 Miscellaneous Information (Consult) 1 ea N/A UD PRN PRN Reason: Consult Stop: 12/26/18 08:59 Miscellaneous Information (Consult) 1 ea N/A UD PRN PRN Reason: Consult Stop: 12/26/18 09:04 Nitroglycerin (Nitrostat) 0.4 mg SL UD PRN PRN Reason: Chest Pain Stop: 12/26/18 02:51 Pantoprazole Sodium (Protonix) 40 mg PO QAM [facility] Stop: 12/01/18 09:01 PG Care Time/CCT Total # of Minutes Spent Total Time Spent with Patient: Total time spent is greater than 50% in coordination of care (as documented) at patient's floor/unit and/or counseling patient: (1) DKA (diabetic ketoacidoses) Diabetes mellitus complication detail: without coma Diabetes mellitus type: type 1 Qualified Code(s): E10.10 - Type 1 diabetes mellitus with ketoacidosis without coma
[2018-11-27] MEDS ORDERED: VANCOMYCIN HCL 1,000 MG in SODIUM CHLORIDE 0.9% 250 ML IV STA (07:13)
[2018-11-27] MEDS: INSULIN ASPART 100 UNITS/ML 3 ML PEN SC SCH ×5 (07:30→19:57)
--- NOTE | 2018-11-27 08:47 | Surgery Progress Note ---
Date of Service November 27, 2018 Assessment & Plan (1) Abdominal pain: Resolved No need for surgical intervention at this tome Will sign off. Please let me know if there is anything else I can help with. Subjective Denies abdominal pain Denies nausea and vomiting Tolerated breakfast Physical Exam Gastrointestinal (Abdomen): Inspection/Auscultation: abdomen normal to inspection; abdomen not distended Percussion/Palpation: abdomen soft; abdomen nontender Results & Data Vital Signs (Past 12 Hours) Vital Signs Temp Pulse Resp BP Pulse Ox 11/27/18 06:00 82 16 128/77 94 11/27/18 05:00 81 22 127/74 96 11/27/18 04:00 37.0 C 77 10 L 123/66 97 11/27/18 03:00 85 17 111/72 97 11/27/18 02:00 82 20 118/55 L 95 11/27/18 01:00 85 14 113/59 L 95 11/27/18 00:00 37.1 C 86 15 108/54 L 95 11/26/18 23:00 89 15 98/58 L 97 11/26/18 22:00 82 15 100/54 L 97 11/26/18 21:00 88 14 101/50 L 95 Laboratory Results 11/27/18 11/27/18 11/27/18 Range/Units 07:51 04:51 04:47 WBC (4.8-10.8) K/uL RBC (4.2-5.4) M/uL Hgb (12.0-16.0) g/dL Hct (37-47) % MCV (80-100) fL MCH (25-34) pg MCHC (32-36) g/dL RDW Std Deviation (36.4-46.3) fL RDW Coeff of Maria Del Carmen (11.5-14.5) % Plt Count (130-400) K/uL MPV (7.4-10.4) fL Immature Gran % (Auto) % Neut % (Auto) % Lymph % (Auto) % [place] % (Auto) % Eos % (Auto) % Baso % (Auto) % Immature Gran # (Auto) (0.00-0.02) K/uL Neut # (Auto) (1.4-6.5) K/uL Lymph # (Auto) (1.2-3.4) K/uL [place] # (Auto) (0.11-0.59) K/uL Eos # (Auto) (0-0.5) K/uL Baso # (Auto) (0-0.2) K/uL VBG pH 7.41 (7.36-7.41) VBG pCO2 36 L (38-50) mmHg VBG pO2 41 mmHg VBG HCO3 22 mmol/L VBG O2 Saturation 74.3 % VBG Base Excess -2.1 mEq/L Sodium (136-145) mmol/L Potassium (3.5-5.1) mmol/L Chloride (98-107) mmol/L Carbon Dioxide (21-32) mmol/L Anion Gap (3-11) BUN (7-18) mg/dl Creatinine (0.6-1.2) mg/dl Est Cr Clr Drug Dosing ml/min Est GFR ( Amer) Est GFR (Non-Af Amer) BUN/Creatinine Ratio (10-20) Glucose (70-99) mg/dl POC Glucose 132 H 156 H (70-99) Lactate (0.4-2.0) mmol/L Calcium (8.5-10.1) mg/dl Phosphorus (2.5-4.9) mg/dl Magnesium (1.8-2.4) mg/dl Vitamin B12 (211-911) pg/ml Folate (>5.38) ng/ml Beta-Hydroxybutyric Acd (0.2-2.81) mg/dl Procalcitonin (0-0.5) ng/ml Nasal Screen MRSA (PCR) (Negative) Random Vancomycin mcg/ml 11/27/18 11/27/18 11/27/18 Range/Units 04:47 04:47 04:47 WBC 14.43 H (4.8-10.8) K/uL RBC 3.22 L (4.2-5.4) M/uL Hgb 9.7 L (12.0-16.0) g/dL Hct 28.4 L (37-47) % MCV 88.2 (80-100) fL MCH 30.1 (25-34) pg MCHC 34.2 (32-36) g/dL RDW Std Deviation 48.0 H (36.4-46.3) fL RDW Coeff of Maria Del Carmen 14.6 H (11.5-14.5) % Plt Count 183 (130-400) K/uL MPV 9.7 (7.4-10.4) fL Immature Gran % (Auto) 0.2 % Neut % (Auto) 86.6 % Lymph % (Auto) 7.6 % [place] % (Auto) 5.6 % Eos % (Auto) 0.0 % Baso % (Auto) 0.0 % Immature Gran # (Auto) 0.03 H (0.00-0.02) K/uL Neut # (Auto) 12.49 H (1.4-6.5) K/uL Lymph # (Auto) 1.10 L (1.2-3.4) K/uL [place] # (Auto) 0.81 H (0.11-0.59) K/uL Eos # (Auto) 0.00 (0-0.5) K/uL Baso # (Auto) 0.00 (0-0.2) K/uL VBG pH (7.36-7.41) VBG pCO2 (38-50) mmHg VBG pO2 mmHg VBG HCO3 mmol/L VBG O2 Saturation % VBG Base Excess mEq/L Sodium (136-145) mmol/L Potassium (3.5-5.1) mmol/L Chloride (98-107) mmol/L Carbon Dioxide (21-32) mmol/L Anion Gap (3-11) BUN (7-18) mg/dl Creatinine (0.6-1.2) mg/dl Est Cr Clr Drug Dosing ml/min Est GFR ( Amer) Est GFR (Non-Af Amer) BUN/Creatinine Ratio (10-20) Glucose (70-99) mg/dl POC Glucose (70-99) Lactate 1.1 (0.4-2.0) mmol/L Calcium (8.5-10.1) mg/dl Phosphorus (2.5-4.9) mg/dl Magnesium (1.8-2.4) mg/dl Vitamin B12 (211-911) pg/ml Folate (>5.38) ng/ml Beta-Hydroxybutyric Acd (0.2-2.81) mg/dl Procalcitonin 28.11 H (0-0.5) ng/ml Nasal Screen MRSA (PCR) (Negative) Random Vancomycin mcg/ml 11/27/18 11/27/18 11/27/18 Range/Units 04:47 04:47 03:01 WBC (4.8-10.8) K/uL RBC (4.2-5.4) M/uL Hgb (12.0-16.0) g/dL Hct (37-47) % MCV (80-100) fL MCH (25-34) pg MCHC (32-36) g/dL RDW Std Deviation (36.4-46.3) fL RDW Coeff of Maria Del Carmen (11.5-14.5) % Plt Count (130-400) K/uL MPV (7.4-10.4) fL Immature Gran % (Auto) % Neut % (Auto) % Lymph % (Auto) % [place] % (Auto) % Eos % (Auto) % Baso % (Auto) % Immature Gran # (Auto) (0.00-0.02) K/uL Neut # (Auto) (1.4-6.5) K/uL Lymph # (Auto) (1.2-3.4) K/uL [place] # (Auto) (0.11-0.59) K/uL Eos # (Auto) (0-0.5) K/uL Baso # (Auto) (0-0.2) K/uL VBG pH (7.36-7.41) VBG pCO2 (38-50) mmHg VBG pO2 mmHg VBG HCO3 mmol/L VBG O2 Saturation % VBG Base Excess mEq/L Sodium 144 (136-145) mmol/L Potassium 3.8 (3.5-5.1) mmol/L Chloride 115 H (98-107) mmol/L Carbon Dioxide 25 (21-32) mmol/L Anion Gap 4.0 (3-11) BUN 21 H (7-18) mg/dl Creatinine 0.93 (0.6-1.2) mg/dl Est Cr Clr Drug Dosing 55.7 ml/min Est GFR ( Amer) 74.2 Est GFR (Non-Af Amer) 64.0 BUN/Creatinine Ratio 22.4 H (10-20) Glucose 153 H (70-99) mg/dl POC Glucose 173 H (70-99) Lactate (0.4-2.0) mmol/L Calcium 7.2 L (8.5-10.1) mg/dl Phosphorus 2.3 L (2.5-4.9) mg/dl Magnesium 2.0 (1.8-2.4) mg/dl Vitamin B12 (211-911) pg/ml Folate (>5.38) ng/ml Beta-Hydroxybutyric Acd (0.2-2.81) mg/dl Procalcitonin (0-0.5) ng/ml Nasal Screen MRSA (PCR) (Negative) Random Vancomycin 11.2 mcg/ml 11/27/18 11/27/18 11/26/18 Range/Units 00:54 00:13 23:13 WBC (4.8-10.8) K/uL RBC (4.2-5.4) M/uL Hgb (12.0-16.0) g/dL Hct (37-47) % MCV (80-100) fL MCH (25-34) pg MCHC (32-36) g/dL RDW Std Deviation (36.4-46.3) fL RDW Coeff of Maria Del Carmen (11.5-14.5) % Plt Count (130-400) K/uL MPV (7.4-10.4) fL Immature Gran % (Auto) % Neut % (Auto) % Lymph % (Auto) % [place] % (Auto) % Eos % (Auto) % Baso % (Auto) % Immature Gran # (Auto) (0.00-0.02) K/uL Neut # (Auto) (1.4-6.5) K/uL Lymph # (Auto) (1.2-3.4) K/uL [place] # (Auto) (0.11-0.59) K/uL Eos # (Auto) (0-0.5) K/uL Baso # (Auto) (0-0.2) K/uL VBG pH (7.36-7.41) VBG pCO2 (38-50) mmHg VBG pO2 mmHg VBG HCO3 mmol/L VBG O2 Saturation % VBG Base Excess mEq/L Sodium 145 (136-145) mmol/L Potassium 4.1 (3.5-5.1) mmol/L Chloride 116 H (98-107) mmol/L Carbon Dioxide 23 (21-32) mmol/L Anion Gap 6.0 (3-11) BUN 24 H (7-18) mg/dl Creatinine 0.89 (0.6-1.2) mg/dl Est Cr Clr Drug Dosing 58.2 ml/min Est GFR ( Amer) 78.3 Est GFR (Non-Af Amer) 67.5 BUN/Creatinine Ratio 27.1 H (10-20) Glucose 179 H (70-99) mg/dl POC Glucose 169 H 168 H (70-99) Lactate (0.4-2.0) mmol/L Calcium 7.0 L (8.5-10.1) mg/dl Phosphorus 2.6 (2.5-4.9) mg/dl Magnesium (1.8-2.4) mg/dl Vitamin B12 (211-911) pg/ml Folate (>5.38) ng/ml Beta-Hydroxybutyric Acd (0.2-2.81) mg/dl Procalcitonin (0-0.5) ng/ml Nasal Screen MRSA (PCR) (Negative) Random Vancomycin mcg/ml 11/26/18 11/26/18 11/26/18 Range/Units 21:52 21:00 19:57 WBC (4.8-10.8) K/uL RBC (4.2-5.4) M/uL Hgb (12.0-16.0) g/dL Hct (37-47) % MCV (80-100) fL MCH (25-34) pg MCHC (32-36) g/dL RDW Std Deviation (36.4-46.3) fL RDW Coeff of Maria Del Carmen (11.5-14.5) % Plt Count (130-400) K/uL MPV (7.4-10.4) fL Immature Gran % (Auto) % Neut % (Auto) % Lymph % (Auto) % [place] % (Auto) % Eos % (Auto) % Baso % (Auto) % Immature Gran # (Auto) (0.00-0.02) K/uL Neut # (Auto) (1.4-6.5) K/uL Lymph # (Auto) (1.2-3.4) K/uL [place] # (Auto) (0.11-0.59) K/uL Eos # (Auto) (0-0.5) K/uL Baso # (Auto) (0-0.2) K/uL VBG pH (7.36-7.41) VBG pCO2 (38-50) mmHg VBG pO2 mmHg VBG HCO3 mmol/L VBG O2 Saturation % VBG Base Excess mEq/L Sodium (136-145) mmol/L Potassium (3.5-5.1) mmol/L Chloride (98-107) mmol/L Carbon Dioxide (21-32) mmol/L Anion Gap (3-11) BUN (7-18) mg/dl Creatinine (0.6-1.2) mg/dl Est Cr Clr Drug Dosing ml/min Est GFR ( Amer) Est GFR (Non-Af Amer) BUN/Creatinine Ratio (10-20) Glucose (70-99) mg/dl POC Glucose 146 H 148 H 142 H (70-99) Lactate (0.4-2.0) mmol/L Calcium (8.5-10.1) mg/dl Phosphorus (2.5-4.9) mg/dl Magnesium (1.8-2.4) mg/dl Vitamin B12 (211-911) pg/ml Folate (>5.38) ng/ml Beta-Hydroxybutyric Acd (0.2-2.81) mg/dl Procalcitonin (0-0.5) ng/ml Nasal Screen MRSA (PCR) (Negative) Random Vancomycin mcg/ml 11/26/18 11/26/18 11/26/18 Range/Units 19:24 19:24 19:00 WBC (4.8-10.8) K/uL RBC (4.2-5.4) M/uL Hgb (12.0-16.0) g/dL Hct (37-47) % MCV (80-100) fL MCH (25-34) pg MCHC (32-36) g/dL RDW Std Deviation (36.4-46.3) fL RDW Coeff of Maria Del Carmen (11.5-14.5) % Plt Count (130-400) K/uL MPV (7.4-10.4) fL Immature Gran % (Auto) % Neut % (Auto) % Lymph % (Auto) % [place] % (Auto) % Eos % (Auto) % Baso % (Auto) % Immature Gran # (Auto) (0.00-0.02) K/uL Neut # (Auto) (1.4-6.5) K/uL Lymph # (Auto) (1.2-3.4) K/uL [place] # (Auto) (0.11-0.59) K/uL Eos # (Auto) (0-0.5) K/uL Baso # (Auto) (0-0.2) K/uL VBG pH (7.36-7.41) VBG pCO2 (38-50) mmHg VBG pO2 mmHg VBG HCO3 mmol/L VBG O2 Saturation % VBG Base Excess mEq/L Sodium 144 (136-145) mmol/L Potassium 4.5 D (3.5-5.1) mmol/L Chloride 116 H (98-107) mmol/L Carbon Dioxide 22 (21-32) mmol/L Anion Gap 6.0 (3-11) BUN 30 H (7-18) mg/dl Creatinine 1.06 (0.6-1.2) mg/dl Est Cr Clr Drug Dosing 48.9 ml/min Est GFR ( Amer) 63.4 Est GFR (Non-Af Amer) 54.7 BUN/Creatinine Ratio 27.8 H (10-20) Glucose 167 H (70-99) mg/dl POC Glucose 168 H (70-99) Lactate 1.8 (0.4-2.0) mmol/L Calcium 7.2 L (8.5-10.1) mg/dl Phosphorus 2.8 (2.5-4.9) mg/dl Magnesium 2.0 (1.8-2.4) mg/dl Vitamin B12 (211-911) pg/ml Folate (>5.38) ng/ml Beta-Hydroxybutyric Acd (0.2-2.81) mg/dl Procalcitonin (0-0.5) ng/ml Nasal Screen MRSA (PCR) (Negative) Random Vancomycin mcg/ml 11/26/18 11/26/18 11/26/18 Range/Units 18:13 18:05 16:59 WBC (4.8-10.8) K/uL RBC (4.2-5.4) M/uL Hgb (12.0-16.0) g/dL Hct (37-47) % MCV (80-100) fL MCH (25-34) pg MCHC (32-36) g/dL RDW Std Deviation (36.4-46.3) fL RDW Coeff of Maria Del Carmen (11.5-14.5) % Plt Count (130-400) K/uL MPV (7.4-10.4) fL Immature Gran % (Auto) % Neut % (Auto) % Lymph % (Auto) % [place] % (Auto) % Eos % (Auto) % Baso % (Auto) % Immature Gran # (Auto) (0.00-0.02) K/uL Neut # (Auto) (1.4-6.5) K/uL Lymph # (Auto) (1.2-3.4) K/uL [place] # (Auto) (0.11-0.59) K/uL Eos # (Auto) (0-0.5) K/uL Baso # (Auto) (0-0.2) K/uL VBG pH (7.36-7.41) VBG pCO2 (38-50) mmHg VBG pO2 mmHg VBG HCO3 mmol/L VBG O2 Saturation % VBG Base Excess mEq/L Sodium 142 (136-145) mmol/L Potassium 5.4 H D (3.5-5.1) mmol/L Chloride 115 H (98-107) mmol/L Carbon Dioxide 21 (21-32) mmol/L Anion Gap 6.0 (3-11) BUN 29 H (7-18) mg/dl Creatinine 1.07 (0.6-1.2) mg/dl Est Cr Clr Drug Dosing 48.4 ml/min Est GFR ( Amer) 62.7 Est GFR (Non-Af Amer) 54.1 BUN/Creatinine Ratio 26.6 H (10-20) Glucose 310 H* (70-99) mg/dl POC Glucose 139 H 160 H (70-99) Lactate (0.4-2.0) mmol/L Calcium 7.3 L (8.5-10.1) mg/dl Phosphorus 2.6 (2.5-4.9) mg/dl Magnesium (1.8-2.4) mg/dl Vitamin B12 (211-911) pg/ml Folate (>5.38) ng/ml Beta-Hydroxybutyric Acd 1.43 (0.2-2.81) mg/dl Procalcitonin (0-0.5) ng/ml Nasal Screen MRSA (PCR) (Negative) Random Vancomycin mcg/ml 11/26/18 11/26/18 11/26/18 Range/Units 16:00 15:07 14:04 WBC (4.8-10.8) K/uL RBC (4.2-5.4) M/uL Hgb (12.0-16.0) g/dL Hct (37-47) % MCV (80-100) fL MCH (25-34) pg MCHC (32-36) g/dL RDW Std Deviation (36.4-46.3) fL RDW Coeff of Maria Del Carmen (11.5-14.5) % Plt Count (130-400) K/uL MPV (7.4-10.4) fL Immature Gran % (Auto) % Neut % (Auto) % Lymph % (Auto) % [place] % (Auto) % Eos % (Auto) % Baso % (Auto) % Immature Gran # (Auto) (0.00-0.02) K/uL Neut # (Auto) (1.4-6.5) K/uL Lymph # (Auto) (1.2-3.4) K/uL [place] # (Auto) (0.11-0.59) K/uL Eos # (Auto) (0-0.5) K/uL Baso # (Auto) (0-0.2) K/uL VBG pH (7.36-7.41) VBG pCO2 (38-50) mmHg VBG pO2 mmHg VBG HCO3 mmol/L VBG O2 Saturation % VBG Base Excess mEq/L Sodium (136-145) mmol/L Potassium (3.5-5.1) mmol/L Chloride (98-107) mmol/L Carbon Dioxide (21-32) mmol/L Anion Gap (3-11) BUN (7-18) mg/dl Creatinine (0.6-1.2) mg/dl Est Cr Clr Drug Dosing ml/min Est GFR ( Amer) Est GFR (Non-Af Amer) BUN/Creatinine Ratio (10-20) Glucose (70-99) mg/dl POC Glucose 144 H 154 H 170 H (70-99) Lactate (0.4-2.0) mmol/L Calcium (8.5-10.1) mg/dl Phosphorus (2.5-4.9) mg/dl Magnesium (1.8-2.4) mg/dl Vitamin B12 (211-911) pg/ml Folate (>5.38) ng/ml Beta-Hydroxybutyric Acd (0.2-2.81) mg/dl Procalcitonin (0-0.5) ng/ml Nasal Screen MRSA (PCR) (Negative) Random Vancomycin mcg/ml 11/26/18 11/26/18 11/26/18 Range/Units 12:53 12:39 12:39 WBC (4.8-10.8) K/uL RBC (4.2-5.4) M/uL Hgb (12.0-16.0) g/dL Hct (37-47) % MCV (80-100) fL MCH (25-34) pg MCHC (32-36) g/dL RDW Std Deviation (36.4-46.3) fL RDW Coeff of Maria Del Carmen (11.5-14.5) % Plt Count (130-400) K/uL MPV (7.4-10.4) fL Immature Gran % (Auto) % Neut % (Auto) % Lymph % (Auto) % [place] % (Auto) % Eos % (Auto) % Baso % (Auto) % Immature Gran # (Auto) (0.00-0.02) K/uL Neut # (Auto) (1.4-6.5) K/uL Lymph # (Auto) (1.2-3.4) K/uL [place] # (Auto) (0.11-0.59) K/uL Eos # (Auto) (0-0.5) K/uL Baso # (Auto) (0-0.2) K/uL VBG pH (7.36-7.41) VBG pCO2 (38-50) mmHg VBG pO2 mmHg VBG HCO3 mmol/L VBG O2 Saturation % VBG Base Excess mEq/L Sodium 143 (136-145) mmol/L Potassium 3.4 L D (3.5-5.1) mmol/L Chloride 114 H (98-107) mmol/L Carbon Dioxide 21 (21-32) mmol/L Anion Gap 8.0 (3-11) BUN 31 H (7-18) mg/dl Creatinine 1.26 H (0.6-1.2) mg/dl Est Cr Clr Drug Dosing 41.1 ml/min Est GFR ( Amer) 51.4 Est GFR (Non-Af Amer) 44.4 BUN/Creatinine Ratio 24.7 H (10-20) Glucose 188 H (70-99) mg/dl POC Glucose 200 H (70-99) Lactate 2.9 H* (0.4-2.0) mmol/L Calcium 7.2 L (8.5-10.1) mg/dl Phosphorus 2.3 L D (2.5-4.9) mg/dl Magnesium (1.8-2.4) mg/dl Vitamin B12 (211-911) pg/ml Folate (>5.38) ng/ml Beta-Hydroxybutyric Acd (0.2-2.81) mg/dl Procalcitonin (0-0.5) ng/ml Nasal Screen MRSA (PCR) (Negative) Random Vancomycin mcg/ml 11/26/18 11/26/18 11/26/18 Range/Units 12:03 10:51 10:05 WBC (4.8-10.8) K/uL RBC (4.2-5.4) M/uL Hgb (12.0-16.0) g/dL Hct (37-47) % MCV (80-100) fL MCH (25-34) pg MCHC (32-36) g/dL RDW Std Deviation (36.4-46.3) fL RDW Coeff of Maria Del Carmen (11.5-14.5) % Plt Count (130-400) K/uL MPV (7.4-10.4) fL Immature Gran % (Auto) % Neut % (Auto) % Lymph % (Auto) % [place] % (Auto) % Eos % (Auto) % Baso % (Auto) % Immature Gran # (Auto) (0.00-0.02) K/uL Neut # (Auto) (1.4-6.5) K/uL Lymph # (Auto) (1.2-3.4) K/uL [place] # (Auto) (0.11-0.59) K/uL Eos # (Auto) (0-0.5) K/uL Baso # (Auto) (0-0.2) K/uL VBG pH (7.36-7.41) VBG pCO2 (38-50) mmHg VBG pO2 mmHg VBG HCO3 mmol/L VBG O2 Saturation % VBG Base Excess mEq/L Sodium (136-145) mmol/L Potassium (3.5-5.1) mmol/L Chloride (98-107) mmol/L Carbon Dioxide (21-32) mmol/L Anion Gap (3-11) BUN (7-18) mg/dl Creatinine (0.6-1.2) mg/dl Est Cr Clr Drug Dosing ml/min Est GFR ( Amer) Est GFR (Non-Af Amer) BUN/Creatinine Ratio (10-20) Glucose (70-99) mg/dl POC Glucose 221 H 261 H 267 H (70-99) Lactate (0.4-2.0) mmol/L Calcium (8.5-10.1) mg/dl Phosphorus (2.5-4.9) mg/dl Magnesium (1.8-2.4) mg/dl Vitamin B12 (211-911) pg/ml Folate (>5.38) ng/ml Beta-Hydroxybutyric Acd (0.2-2.81) mg/dl Procalcitonin (0-0.5) ng/ml Nasal Screen MRSA (PCR) (Negative) Random Vancomycin mcg/ml 11/26/18 11/26/18 11/26/18 Range/Units 09:00 08:30 08:00 WBC (4.8-10.8) K/uL RBC (4.2-5.4) M/uL Hgb (12.0-16.0) g/dL Hct (37-47) % MCV (80-100) fL MCH (25-34) pg MCHC (32-36) g/dL RDW Std Deviation (36.4-46.3) fL RDW Coeff of Maria Del Carmen (11.5-14.5) % Plt Count (130-400) K/uL MPV (7.4-10.4) fL Immature Gran % (Auto) % Neut % (Auto) % Lymph % (Auto) % [place] % (Auto) % Eos % (Auto) % Baso % (Auto) % Immature Gran # (Auto) (0.00-0.02) K/uL Neut # (Auto) (1.4-6.5) K/uL Lymph # (Auto) (1.2-3.4) K/uL [place] # (Auto) (0.11-0.59) K/uL Eos # (Auto) (0-0.5) K/uL Baso # (Auto) (0-0.2) K/uL VBG pH (7.36-7.41) VBG pCO2 (38-50) mmHg VBG pO2 mmHg VBG HCO3 mmol/L VBG O2 Saturation % VBG Base Excess mEq/L Sodium (136-145) mmol/L Potassium (3.5-5.1) mmol/L Chloride (98-107) mmol/L Carbon Dioxide (21-32) mmol/L Anion Gap (3-11) BUN (7-18) mg/dl Creatinine (0.6-1.2) mg/dl Est Cr Clr Drug Dosing ml/min Est GFR ( Amer) Est GFR (Non-Af Amer) BUN/Creatinine Ratio (10-20) Glucose (70-99) mg/dl POC Glucose 337 H* 349 H* (70-99) Lactate (0.4-2.0) mmol/L Calcium (8.5-10.1) mg/dl Phosphorus (2.5-4.9) mg/dl Magnesium (1.8-2.4) mg/dl Vitamin B12 (211-911) pg/ml Folate (>5.38) ng/ml Beta-Hydroxybutyric Acd (0.2-2.81) mg/dl Procalcitonin (0-0.5) ng/ml Nasal Screen MRSA (PCR) Negative (Negative) Random Vancomycin mcg/ml 11/26/18 Range/Units 05:40 WBC (4.8-10.8) K/uL RBC (4.2-5.4) M/uL Hgb (12.0-16.0) g/dL Hct (37-47) % MCV (80-100) fL MCH (25-34) pg MCHC (32-36) g/dL RDW Std Deviation (36.4-46.3) fL RDW Coeff of Maria Del Carmen (11.5-14.5) % Plt Count (130-400) K/uL MPV (7.4-10.4) fL Immature Gran % (Auto) % Neut % (Auto) % Lymph % (Auto) % [place] % (Auto) % Eos % (Auto) % Baso % (Auto) % Immature Gran # (Auto) (0.00-0.02) K/uL Neut # (Auto) (1.4-6.5) K/uL Lymph # (Auto) (1.2-3.4) K/uL [place] # (Auto) (0.11-0.59) K/uL Eos # (Auto) (0-0.5) K/uL Baso # (Auto) (0-0.2) K/uL VBG pH (7.36-7.41) VBG pCO2 (38-50) mmHg VBG pO2 mmHg VBG HCO3 mmol/L VBG O2 Saturation % VBG Base Excess mEq/L Sodium (136-145) mmol/L Potassium (3.5-5.1) mmol/L Chloride (98-107) mmol/L Carbon Dioxide (21-32) mmol/L Anion Gap (3-11) BUN (7-18) mg/dl Creatinine (0.6-1.2) mg/dl Est Cr Clr Drug Dosing ml/min Est GFR ( Amer) Est GFR (Non-Af Amer) BUN/Creatinine Ratio (10-20) Glucose (70-99) mg/dl POC Glucose (70-99) Lactate (0.4-2.0) mmol/L Calcium (8.5-10.1) mg/dl Phosphorus (2.5-4.9) mg/dl Magnesium (1.8-2.4) mg/dl Vitamin B12 > 2000 H (211-911) pg/ml Folate 10.99 (>5.38) ng/ml Beta-Hydroxybutyric Acd (0.2-2.81) mg/dl Procalcitonin (0-0.5) ng/ml Nasal Screen MRSA (PCR) (Negative) Random Vancomycin mcg/ml
[2018-11-27] MEDS ORDERED: INSULIN GLARGINE SOLOSTAR 100 UNITS/ML 3 ML PEN SC SCH (09:00)
[2018-11-27] MEDS: FAMOTIDINE 20 MG in SYRINGE 3 ML IV SCH (09:20)
--- NOTE | 2018-11-27 09:21 | Hospitalist Progress Note ---
Date of Service November 27, 2018 Assessment & Plan (1) Hypotension: Total critical care time was 50 minutes. (2) DKA (diabetic ketoacidoses): Diabetes ketoacidosis, Rule out underlying infection, intra-abdominal pathology DKA resolved transition from Insulin drip to Subq Insulin Insulin pump on hold for now Pharmacy Glycemic Control consult--> will provide guidance on when to resume patient's own Insulin Pump Rule out underlying infection Afebrile Positive leukocytosis 17,000--> 14k Procalcitonin elevated Urine culture: Negative Blood cultures: Pending no clear focus of bacterial infection at this time Continue empiric imipenem + Vanco for now ID consulted Hypotension Likely secondary to volume depletion Rule out underlying infection given IV fluids, hypotension resolved Abdominal pain Resolved CT abdomen: IMPRESSION: 1. Hepatic steatosis. Correlate with liver function tests to exclude steatohepatitis as a cause for abdominal pain. 2. Small hiatal hernia. 3. Small free fluid in the pelvis may be physiologic. 4. Osteopenia. General surgery on board, doubt mesenteric ischemia diet advanced CAD as per records, not on aspirin prophylaxis as per patient preference secondary to PUD Esophagitis on CT Famotidine ordered Episodic anemia, hx pernicious anemia as per records Monitor hemoglobin DVT prophylaxis Lovenox subcu Full code Disposition pending Usually lives with family at home Case discussed with patient and her family at the bedside in detail and at length All questions answered They are all understanding, comfortable, agreeable with the plan of care Subjective ff up for DKA, possible infection seen resting in bed, sitting up, appears more alert, brighter states she feels improved abdominal pain has resolved denies nausea/vomiting, tolerated breakfast well denies headache, dizziness, chest pain, palpitations, dizziness no diarrhea, urinary symptoms no other symptoms Review of Systems Review of Systems: All systems reviewed & are unremarkable except as noted in HPI & below Physical Exam Physical Exam: General- oriented x 3, not in distress, speaks in sentences with no effort or accessory muscle use Eyes- anicteric Neck- no JVD Lungs- clear BS bilaterally, no rales/wheezing Heart- normal rate, regular rhythm; no murmurs Abdomen- normal bowel sounds, nondistended, soft, nontender Extremities- no pretibial edema, no calf tenderness Neuro- alert, oriented x 3; no gross focal neurologic deficits Skin- warm & dry Results & Data Vital Signs (Past 12 Hours) Vital Signs Temp Pulse Resp BP Pulse Ox 11/27/18 06:00 82 16 128/77 94 11/27/18 05:00 81 22 127/74 96 11/27/18 04:00 37.0 C 77 10 L 123/66 97 11/27/18 03:00 85 17 111/72 97 11/27/18 02:00 82 20 118/55 L 95 11/27/18 01:00 85 14 113/59 L 95 11/27/18 00:00 37.1 C 86 15 108/54 L 95 11/26/18 23:00 89 15 98/58 L 97 11/26/18 22:00 82 15 100/54 L 97 (1) DKA (diabetic ketoacidoses) Diabetes mellitus complication detail: without coma Diabetes mellitus type: type 1 Qualified Code(s): E10.10 - Type 1 diabetes mellitus with ketoacidosis without coma
[2018-11-27] MEDS ORDERED: LACTATED RINGER'S 1,000 ML IV SCH (09:30)
[2018-11-27] MEDS ORDERED: INSULIN HUMAN LISPRO (humaLOG) 100 UNITS/ML VIAL SC PRN (10:00)
[2018-11-27] MEDS ORDERED: HYDROCODONE/ACETAMOPHEN 5/325MG TAB PO PRN (10:40)
--- NOTE | 2018-11-27 11:05 | Pharmacy Report ---
Pharmacy Glycemic Short Note 2 - Date of Service November 27, 2018 - Glycemic Short BSG Results (Last 24 hours): 11/26/18 11/26/18 11/26/18 08:00 09:00 10:05 Glucose POC Glucose 349 H* 337 H* 267 H 11/26/18 11/26/18 11/26/18 10:51 12:03 12:39 Glucose 188 H POC Glucose 261 H 221 H 11/26/18 11/26/18 11/26/18 12:53 14:04 15:07 Glucose POC Glucose 200 H 170 H 154 H 11/26/18 11/26/18 11/26/18 16:00 16:59 18:05 Glucose POC Glucose 144 H 160 H 139 H 11/26/18 11/26/18 11/26/18 18:13 19:00 19:24 Glucose 310 H* 167 H POC Glucose 168 H 11/26/18 11/26/18 11/26/18 19:57 21:00 21:52 Glucose POC Glucose 142 H 148 H 146 H 11/26/18 11/27/18 11/27/18 23:13 00:13 00:54 Glucose 179 H POC Glucose 168 H 169 H 11/27/18 11/27/18 11/27/18 03:01 04:47 04:51 Glucose 153 H POC Glucose 173 H 156 H 11/27/18 11/27/18 11/27/18 07:51 09:09 10:10 Glucose POC Glucose 132 H 195 H 143 H OUTPATIENT ANTIDIABETIC REGIMEN: * Humalog insulin pump * Basal rates: 6157-1693 0.475units/hr ; 0.455 units/hr 8340-3485 ; 5132-3518 0.55units/hr (~12.5units/day) * Correction factor: 60mg/dL/unit * Carb ratio: 1 unit per 20gm CHOs with breakfast, 1 unit per 15gm CHOs lunch and dinner * HbA1c: 8.0% (Oct 2018) ASSESSMENT: 11/27 * IV insulin infusion running this AM at 1.6unit/hr (D5LR still running at this time) * DKA resolved, patient tolerating diet, dextrose being removed from IVF's this AM * Patient received 15 units of Lantus this AM * Plan to transition patient back to her insulin pump at noon today and d/c the insulin drip at that time. * Patient is knowledgeable regarding pump use and is able to adjust her settings. She has been instructed to d/c her basal rate when restarted, but she has been instructed that she may need to resume some basal insulin later today if her BSGs climb as infection and recent DKA can lead to increased insulin needs. She will begin at 25% basal if BSGs persistently high despite correction and proceed to titrate upwards if needed. She does have plans to call Dr Baxter's office for advice as well. * Insulin pump agreement and flowsheet were reviewed with patient and signed. * We will be checking her BSGs Q 2 hrs initially and pt will cover carb intake and hyperglycemia with her pump. * She has her pump supplies with her today and will only require insulin from the pharmacy. * She will likely need to resume her usual basal insulin doses tomorrow AM. 11/26 * Ms Bruner is a 68yo diabetic female admitted with septic shock and DKA. * Patient was extremely reluctant to stop her insulin pump and was also not agreeable to finger-sticks for BSG monitoring. After some discussion, she did agree to disconnecting pump and transitioning to IV insulin infusion. * DKA is resolving since being initiated on an IV insulin infusion * Labs on admission: BSG 478, AG 13, CO2 21, pH 7.29, urine 2+ ketones, BHBA 14.39 * this morning: BSG still >400, AG 14, CO2 18, BHBA 15.06 * this afternoon: BSG 188, AG 8, CO2 21 * Patient will be maintained on IV insulin until her pump can be resumed, to make the transition back to her pump easier. * Patient is currently receiving Vanc/Zosyn for empiric antibiotic coverage. * She is receiving dextrose in her IVF (currently D5LR + 20mEq KCl @ 125mL/hr) and is NPO. PLAN FOR INPATIENT GLYCEMIC CONTROL: * Resume insulin pump at noon today * Check BSGs Q 2 hrs * Patient to self-manage glycemic control at this time with periodic pharmacy f/u PLAN FOR DISCHARGE: * Expect that patient may resume insulin pump for discharge. * Dr Baxter manages her insulin pump as an outpatient, and he has been in contact with patient this admission. He is aware of inpatient plan and is in agreement.
[2018-11-27] MEDS: diazePAM 5 MG TABLET PO SCH ×2 (11:28→20:26)
[2018-11-27] MEDS ORDERED: [UNRECOGNIZED DRUG - REMARK] ONE (12:00)
--- NOTE | 2018-11-27 12:30 | Pharmacy Report ---
Pharmacy Abx Dose Short Note - Date of Service November 27, 2018 - Assessment & Plan Assessment * 68 year old F receiving VANCOMYCIN + PRIMAXIN for treatment of sepsis, unknown source - possible GI source? * Day # 2 of antimicrobial therapy * VSS, afebrile, no hypotension * No growth in cx's to date; negative MRSA nasal swab * CXR read as no acute process * Procalcitonin 18.67 --> 28.11 * Hospitalist plans to continue current abx therapy for next 24 hrs * Renal fxn improving Plan Vancomycin * Random level of 11.2 mcg/mL is subtherapeutic, this was following a single loading dose of 1750mg x 1 administered ~19 hrs earlier * Maint dose: 1000 (~15mg/kg) mg IV every 16 hours * Goal trough level for sepsis, unknown source : 15 to 20 mcg/mL * Will order trough level w/ 3rd dose if therapy continues beyond 24 hrs Primaxin * 30-59cc/min, continue 300mg IV Q 6 hrs Pharmacy will continue to follow and will adjust dose/frequency as necessary. Thank you.
--- NOTE | 2018-11-27 15:00 | Infectious Disease Progress Nt ---
Date of Service November 27, 2018 Assessment & Plan (1) Sepsis associated hypotension: Patient with clinical picture of sepsis with elevated procalcitonin, lactic acid, and white count, clinically improved with imipenem, but no clear- cut source of infection. For now would continue on IV imipenem and follow clinical response. Subjective Patient seen in follow-up for clinical picture of sepsis. Feeling better today. No fever. Denies abdominal pain Denies nausea and vomiting Tolerated breakfast Blood cultures remain negative. Procalcitonin higher. Review of Systems Review of Systems: All systems reviewed & are unremarkable except as noted in HPI & below Physical Exam Constitutional: WD/WN, vitals as above comfortable; no acute distress Eyes: PERRL, conjunctivae normal, anicteric sclerae ENMT: external ear and nose normal, oropharynx normal Neck: trachea midline, no thyromegaly neck nontender Respiratory: normal respiratory effort, lungs clear to auscultation normal percussion; does not use accessory muscles Cardiovascular: Rate/Rhythm: regular rate and regular rhythm Heart Sounds: normal S1 and normal S2; no gallop, no murmur and no cardiac rub Vessels: normal peripheral pulses; no JVD Gastrointestinal (Abdomen): Inspection/Auscultation: abdomen normal to inspection and normal bowel sounds Percussion/Palpation: + abdomen tender and abdomen soft; no hepatosplenomegaly and no abdominal mass Musculoskeletal: no cyanosis or clubbing, extremities motor strength 5/5 Spine: thoracic spine normal to inspection and lumbar spine normal to inspection; no cervical spinal tenderness Skin: no rashes, warm and dry normal turgor; no lesions Neurologic: patellar DTR's 2+ bilat, sensation intact no focal motor deficits Psychiatric: A+Ox3, euthymic affect Orientation: cooperative Lymphatic: no cervical or axillary lymphadenopathy no inguinal lymphadenopathy Results & Data Vital Signs (Past 12 Hours) Vital Signs Temp Pulse Resp BP BP Pulse Ox 11/27/18 13:40 78 11/27/18 13:26 18 123/76 94 11/27/18 12:00 37.1 C 79 15 138/63 97 11/27/18 11:00 72 10 L 135/76 97 11/27/18 10:00 73 16 136/72 94 11/27/18 09:00 74 20 133/70 95 11/27/18 08:00 37 C 80 21 138/70 95 11/27/18 07:00 78 22 131/68 96 11/27/18 06:00 82 16 128/77 94 11/27/18 05:00 81 22 127/74 96 11/27/18 04:00 37.0 C 77 10 L 123/66 97 11/27/18 03:00 85 17 111/72 97 Laboratory Results Short CBC 11/27/18 Range/Units 04:47 WBC 14.43 H (4.8-10.8) K/uL Hgb 9.7 L (12.0-16.0) g/dL Hct 28.4 L (37-47) % Plt Count 183 (130-400) K/uL BMP 11/26/18 11/26/18 11/27/18 18:13 19:24 00:13 Sodium 142 144 145 Potassium 5.4 H D 4.5 D 4.1 Chloride 115 H 116 H 116 H Carbon Dioxide 21 22 23 BUN 29 H 30 H 24 H Creatinine 1.07 1.06 0.89 Glucose 310 H* 167 H 179 H Calcium 7.3 L 7.2 L 7.0 L 11/27/18 04:47 Sodium 144 Potassium 3.8 Chloride 115 H Carbon Dioxide 25 BUN 21 H Creatinine 0.93 Glucose 153 H Calcium 7.2 L Diagnostic Findings Microbiology 11/26/18 01:20 Urine,Clean Catch Urine Culture - Final More than three types of organisms present, all low counts mixed probable skin cheyanne. No further identifications or sensitivities to follow. 11/26/18 05:59 Blood Aerobic Blood Culture - Preliminary No growth in Aerobic bottle after 24 hours. 11/26/18 05:59 Blood Anaerobic Blood Culture - Preliminary No growth in Anaerobic bottle after 24 hours. 11/26/18 05:40 Blood Aerobic Blood Culture - Preliminary No growth in Aerobic bottle after 24 hours. 11/26/18 05:40 Blood Anaerobic Blood Culture - Preliminary No growth in Anaerobic bottle after 24 hours. PG Care Time/CCT Total # of Minutes Spent Total Time Spent with Patient: Total time spent is greater than 50% in coordination of care (as documented) at patient's floor/unit and/or counseling patient:
[2018-11-27] MEDS ORDERED: Nursing to Pharmacy Communication ONE (17:00)
[2018-11-27] MEDS: ALUMINUM/MAGNESIUM SUSP 30 ML UDC PO PRN (18:40)
[2018-11-27] MEDS ORDERED: LORazepam 0.5 MG TAB PO STA (22:44)
[2018-11-28] MEDS ORDERED: VANCOMYCIN HCL 1,000 MG in SODIUM CHLORIDE 0.9% 250 ML IV SCH
[2018-11-28] MEDS: INSULIN ASPART 100 UNITS/ML 3 ML PEN SC SCH ×2 (00:23→03:36)
[2018-11-28] MEDS: IMIPENEM/CILASTATIN SODIUM 300 MG in DEXTROSE 5% 100 ML IV SCH ×2 (03:48→10:09)
[2018-11-28] MEDS: METOCLOPRAMIDE HCL INJ 5 MG/ML 2 ML VIAL IV PRN (05:51)
[2018-11-28] MEDS: HEPARIN SOD 5,000 UNIT/0.5 ML VIAL SQ SCH ×2 (05:51→14:14)
[2018-11-28 08:04] LABS: Creatinine Clr Calc Pharmacy 75.9 ml/min; Est GFR (African American) 96.3; Est GFR (Non-African American) 83.1
[2018-11-28] MEDS ORDERED: PANTOprazole 40 MG TAB PO SCH (09:00)
[2018-11-28] MEDS: diazePAM 5 MG TABLET PO SCH (09:06)
[2018-11-28] MEDS: ALUMINUM/MAGNESIUM SUSP 30 ML UDC PO PRN (09:07)
[2018-11-28] MEDS ORDERED: ONDANSETRON INJ 2 MG/ML 2 ML VIAL IV PRN (10:27)
--- NOTE | 2018-11-28 12:12 | Hospitalist Progress Note ---
Date of Service November 28, 2018 Assessment & Plan (1) Hypotension: Likely secondary to dehydration Infection has been ruled out (2) DKA (diabetic ketoacidoses): Diabetes ketoacidosis, Rule out underlying infection, intra-abdominal pathology Managed accordingly with intravenous insulin drip and intravenous fluids Transition from Insulin drip to Subq Insulin Insulin pump was on hold and now restarted Appreciate pharmacy Glycemic Control consult Insulin pump as been restarted Rule out underlying infection Afebrile Positive leukocytosis 17,000--> 14k Has been on intravenous Zosyn and vancomycin Procalcitonin elevated Urine culture: Negative Blood cultures: Negative Infection has been ruled out Discussed with ID and antibiotics will be discontinued Hypotension Likely secondary to volume depletion Rule out underlying infection given IV fluids, hypotension resolved Abdominal pain Resolved-likely secondary to nausea vomiting and DKA symptoms CT abdomen: IMPRESSION: 1. Hepatic steatosis. Correlate with liver function tests to exclude steatohepatitis as a cause for abdominal pain. 2. Small hiatal hernia. 3. Small free fluid in the pelvis may be physiologic. 4. Osteopenia. General surgery on board, doubt mesenteric ischemia diet advanced CAD as per records, not on aspirin prophylaxis as per patient preference secondary to PUD Esophagitis on CT Famotidine ordered Episodic anemia, hx pernicious anemia as per records Monitor hemoglobin Hemoglobin is 9.7 as of 11/28 We will have outpatient follow-up DVT prophylaxis Lovenox subcu Full code Disposition pending Usually lives with family at home Case discussed with patient and her family at the bedside in detail and at length All questions answered Will discharge home this afternoon Subjective 11/28 The patient was seen and examined in medical telemetry unit She denies any complaints today Her blood sugar seems to be controlled and she has been ambulating without any problem No more fever and/or chills, no urinary symptoms, no cough and or phlegm, no abdominal pain nausea no vomiting She will be discharged home this afternoon Review of Systems Review of Systems: All systems reviewed and are unremarkable except as noted below Gastrointestinal: no abdominal pain, no bloating, no nausea and no vomiting Genitourinary: no dysuria, no difficulty urinating, no urinary hesitancy and no urinary urgency Physical Exam Physical Exam: Lying in bed comfortably Constitutional: WD/WN, vitals as above well developed, well nourished, cooperative and comfortable; no acute distress and not ill appearing Eyes: PERRL, conjunctivae normal, anicteric sclerae ENMT: external ear and nose normal, oropharynx normal Neck: trachea midline, no thyromegaly trachea midline; neck nontender Respiratory: normal respiratory effort; no respiratory distress Auscultation: lungs clear to auscultation bilaterally Cardiovascular: Rate/Rhythm: regular rate, regular rhythm and + tachycardic Heart Sounds: normal S1 and normal S2; no gallop, no murmur and no cardiac rub Vessels: no JVD Extremities: no edema Gastrointestinal (Abdomen): Inspection/Auscultation: abdomen normal to inspection, + abdomen distended and normal bowel sounds Percussion/Palpation: abdomen soft; no hepatosplenomegaly, no hernia and no abdominal mass Musculoskeletal: no cyanosis or clubbing, extremities motor strength 5/5 Spine: thoracic spine normal to inspection and lumbar spine normal to inspection; no cervical spinal tenderness No acute arthritis in any joints Skin: no rashes, warm and dry normal turgor; no lesions Neurologic: patellar DTR's 2+ bilat, sensation intact and PERRL, EOMI, accommodation nl, no face palsy, no dysarthria moves all extremities; no focal motor deficits Psychiatric: A+Ox3, euthymic affect Orientation: alert, oriented x 3 and cooperative Lymphatic: no cervical or axillary lymphadenopathy no inguinal lymphadenopathy Results & Data Vital Signs (Past 12 Hours) Vital Signs Temp Pulse Pulse Resp BP Pulse Ox 11/28/18 11:17 36.9 C 64 16 117/72 92 11/28/18 07:10 36.7 C 78 17 120/73 92 11/28/18 05:00 93 H 11/28/18 03:42 37.1 C 77 18 129/75 93 Laboratory Results [facility] 11/28/18 07:09 Creatinine 0.75 Medications Administered Current Inpatient Medications Acetaminophen (Tylenol) 650 mg PO Q4H PRN PRN Reason: Pain or Fever Stop: 12/26/18 02:51 Hydrocodone Bitart/Acetaminophen ([place] 5/325) 0.5 tab PO BID PRN PRN Reason: Pain Stop: 12/11/18 20:59 Last Admin: 11/27/18 11:27 Dose: 0.5 tab Documented by: Al Hydrox/Mg Hydrox/Simethicone (Maalox) 30 ml PO Q6H PRN PRN Reason: Dyspepsia Stop: 12/27/18 18:35 Last Admin: 11/28/18 09:07 Dose: 30 ml Documented by: Dextrose (Dextrose 50%) 25 - 50 ml IV UD PRN; Protocol PRN Reason: Hypoglycemia Protocol Stop: 12/26/18 03:14 Diazepam (Valium) 2.5 mg PO BID MALINA Stop: 12/27/18 10:44 Last Admin: 11/28/18 09:06 Dose: 2.5 mg Documented by: Glucagon (Glucagen) 1 mg IM UD PRN; Protocol PRN Reason: Hypoglycemia Protocol Stop: 12/26/18 03:14 Glucose (Glucose 40%) 15 - 30 gm PO UD PRN; Protocol PRN Reason: Hypoglycemia Protocol Stop: 12/26/18 03:14 Glucose (Dex4 Glucose) 4 - 8 tabs PO UD PRN; Protocol PRN Reason: Hypoglycemia Protocol Stop: 12/26/18 03:14 Heparin Sodium (Porcine) (Heparin Sodium (Porcine)) 5,000 units SQ Q8 MALINA Stop: 12/26/18 13:59 Last Admin: 11/28/18 05:51 Dose: Not Given Documented by: Insulin Aspart (Novolog Flexpen) 0 units SC ACHS MALINA Stop: 12/27/18 11:29 Last Admin: 11/27/18 19:57 Dose: 3 units Documented by: Insulin Human Lispro (Humalog) 0 units SC PRN PRN PRN Reason: refill of pump Stop: 12/27/18 09:59 Insulin Human Lispro (Humalog Insulin Pump) 1 ea N/A .pt to self manage MALINA; Protocol Stop: 12/27/18 09:59 Last Admin: 11/28/18 07:48 Dose: 1 ea Documented by: Metoclopramide HCl (Reglan) 10 mg IV Q6H PRN PRN Reason: Nausea Stop: 12/26/18 02:51 Last Admin: 11/28/18 05:51 Dose: 10 mg Documented by: Miscellaneous (Carbohydrates For Hypoglycemia) 15 - 30 gm PO PRN PRN PRN Reason: Hypoglycemia Treatment Stop: 12/26/18 03:14 Miscellaneous Information (Consult Glycemic Management Pharmacy) 1 ea N/A UD PRN PRN Reason: Consult Stop: 12/26/18 02:46 Miscellaneous Information (Consult) 1 ea N/A UD PRN PRN Reason: Consult Stop: 12/26/18 08:59 Miscellaneous Information (Consult) 1 ea N/A UD PRN PRN Reason: Consult Stop: 12/26/18 09:04 Nitroglycerin (Nitrostat) 0.4 mg SL UD PRN PRN Reason: Chest Pain Stop: 12/26/18 02:51 Ondansetron HCl (Zofran) 4 mg IV Q6H PRN PRN Reason: Nausea Stop: 12/28/18 10:26 Last Admin: 11/28/18 10:54 Dose: 4 mg Documented by: Pantoprazole Sodium (Protonix) [facility] [place]: 12/01/18 09:01 Last Admin: 11/28/18 09:08 Dose: Not Given Documented by: (1) DKA (diabetic ketoacidoses) Diabetes mellitus complication detail: without coma Diabetes mellitus type: type 1 Qualified Code(s): E10.10 - Type 1 diabetes mellitus with ketoacidosis without coma
[2018-11-28 15:08] VITALS: BP 130/75; TEMP 97.9; O2SAT 94
[2018-11-28 17:05] VITALS: PULSE 104
--- NOTE | 2018-11-29 12:33 | Discharge Summary ---
Date of Service November 29, 2018 Admission HPI Per Admitting Provider History obtained from patient and records. Medical history significant for DM1 on insulin pump, CAD as per records, PUD as per records, pernicious anemia as per records. Recent confinement September 2015 for mild DKA. After an oatmeal breakfast this morning, patient noted burning epigastric discomfort followed by nausea, bilious emesis. Nonbloody loose stools. No chest pain, no S OB, no cough. No fever, some chills. Possible sick contacts. BSG is at home later noted to be 400s. Medical History as above Surgical History : Jaw surgeries for TMJ, cholecystectomy, RISHABH Family History : Diabetes Personal/Social history : Non-smoker, no EtOH intake, prior work as an players assistant at a chiropractor's office Admission Exam Per Admitting Provider Physical Exam: GENERAL: Slightly uncomfortable, wane, speaking in a very low voice, no respiratory distress SKIN: Head neck arms noted to be tanned, warm HEENT: [place] palpebral conjunctivae, no ptosis, chronic jaw asymmetry, dry buccal mucosa NECK : Supple, no tenderness CHEST : CTA, no tenderness HEART : Tachycardic, no obvious murmurs ABDOMEN: Some distention, central abdominal tenderness RECTAL : Intact sphincter, yellow stool (FOBT negative) EXTREMITIES : No LE swelling/tenderness, no other conspicuous deformities noted NEUROLOGIC : Coherent, chronic lower facial symmetry more prominent during patient speech , no other gross focality Principal Diagnosis Type 1 diabetes with ketoacidosis, no infective source found, stable CAD Discharge Exam Constitutional WD/WN, vitals as above well developed, well nourished, cooperative and comfortable; no acute distress and not ill appearing Eyes PERRL, conjunctivae normal, anicteric sclerae ENMT external ear and nose normal, oropharynx normal Neck trachea midline, no thyromegaly trachea midline; neck nontender Respiratory normal respiratory effort; no respiratory distress Auscultation: lungs clear to auscultation bilaterally Cardiovascular Rate/Rhythm: regular rate, regular rhythm and + tachycardic Heart Sounds: normal S1 and normal S2; no gallop, no murmur and no cardiac rub Vessels: no JVD Extremities: no edema Gastrointestinal (Abdomen) Inspection/Auscultation: abdomen normal to inspection, + abdomen distended and n ormal bowel sounds Percussion/Palpation: abdomen soft; no hepatosplenomegaly, no hernia and no abdominal mass Musculoskeletal no cyanosis or clubbing, extremities motor strength 5/5 Spine: thoracic spine normal to inspection and lumbar spine normal to inspection; no cervical spinal tenderness Skin no rashes, warm and dry normal turgor; no lesions Neurologic patellar DTR's 2+ bilat, sensation intact and PERRL, EOMI, accommodation nl, no face palsy, no dysarthria moves all extremities; no focal motor deficits Psychiatric A+Ox3, euthymic affect Orientation: alert, oriented x 3 and cooperative Lymphatic no cervical or axillary lymphadenopathy no inguinal lymphadenopathy Discharge Data Allergies Allergy/AdvReac Type Severity Reaction Status Date / Time Penicillins Allergy Unknown . Verified 11/25/18 23:04 promethazine Allergy Unknown . Verified 11/25/18 23:04 Sulfa (Sulfonamide AdvReac Unknown RASH,VOMITI Verified 11/25/18 23:04 Antibiotics) NG Consultations 11/25/18 23:44 ED Decision to Admit Stat 11/26/18 02:52 Consult General Surgery Routine 11/26/18 07:26 Consult Vice President Lending Routine 11/26/18 08:35 Consult Infectious Diseases Routine Ordered Studies 11/26/18 00:19 CT abd pelvis IV con only Urgent Hospital Course (1) Hypotension: Likely secondary to dehydration Infection has been ruled out (2) DKA (diabetic ketoacidoses): Diabetes ketoacidosis, Rule out underlying infection, intra-abdominal pathology Managed accordingly with intravenous insulin drip and intravenous fluids Transition from Insulin drip to Subq Insulin Insulin pump was on hold and now restarted Appreciate pharmacy Glycemic Control consult Insulin pump as been restarted Rule out underlying infection Afebrile Positive leukocytosis 17,000--> 14k Has been on intravenous Zosyn and vancomycin Procalcitonin elevated Urine culture: Negative Blood cultures: Negative Infection has been ruled out Discussed with ID and antibiotics will be discontinued Hypotension Likely secondary to volume depletion Rule out underlying infection given IV fluids, hypotension resolved Abdominal pain Resolved-likely secondary to nausea vomiting and DKA symptoms CT abdomen: IMPRESSION: 1. Hepatic steatosis. Correlate with liver function tests to exclude steatohepatitis as a cause for abdominal pain. 2. Small hiatal hernia. 3. Small free fluid in the pelvis may be physiologic. 4. Osteopenia. General surgery on board, doubt mesenteric ischemia diet advanced CAD as per records, not on aspirin prophylaxis as per patient preference secondary to PUD Esophagitis on CT Famotidine ordered Episodic anemia, hx pernicious anemia as per records Monitor hemoglobin Hemoglobin is 9.7 as of 11/28 We will have outpatient follow-up DVT prophylaxis Lovenox subcu Full code Disposition pending Usually lives with family at home Case discussed with patient and her family at the bedside in detail and at length All questions answered Will discharge home this afternoon Total Time Total Time Spent Total Time Spent (In Minutes): 35 minutes Total Time Includes: Examination of the Patient, Discharge Planning, Medication Reconciliation and Communication With Other Providers Discharge Plan Discharge Items Patient Disposition: Home - Self-Care Reason For Visit: LOW BP Discharge Diagnosis: Type 1 diabetes with ketoacidosis, no infective source found, stable CAD Condition: Fair Discharge Goals: Decrease discomfort, Improve function and Increase independence Activity: Resume your previous activity Non-emergency contact: Primary Care Provider Call non-emergency contact if: you have any medication questions and your symptoms worsen Follow-up/Referrals: Hawa Vera DO [Primary Care Provider] - 11/30/18 12:45 pm (Your appointment is with Dr. Snider, Dr. Pierre is not available. Please make an appointment with your peritoneal dialysis registered nurse in 1 to 2 weeks) Diet: Carb Count or DM1 Addtl Provider Instructions: Please have regular follow-up with your peritoneal dialysis registered nurse for better control of your diabetes. Prescriptions: Continued dicyclomine 10 mg capsule 10 mg PO DAILY RF: 0 raloxifene [Evista] 60 mg tablet 60 mg PO DAILY RF: 0 hydrocodone-acetaminophen [Vicodin] 5-300 mg tablet 1 tab PO .COMPLEX PRN (Reason: Pain) RF: 0 diazepam 5 mg tablet 5 mg PO .COMPLEX RF: 0 omega-3 fatty acids 1,000 mg capsule 1,000 mg PO DAILY RF: 0 cyanocobalamin (vitamin B-12) 1,000 mcg/mL solution 1,000 mcg SQ .COMPLEX RF: 0 Novolog U-100 Insulin aspart 100 unit/mL solution See Patient Comments SQ .COMPLEX RF: 0 diclofenac sodium 50 mg Tablet,Delayed Release (Dr/Ec) 50 mg PO UD PRN (Reason: Pain) RF: 0 carisoprodol [Soma] 250 mg Tablet PO UD PRN (Reason: MUSCLE SPASMS) RF: 0 Stand-Alone Forms: [facility] Discharge Orders: Discharge Order (Routine); Ordered 11/28/18 Ordered By: Tomasa Correa Admission Data Admit Date/Time: 11/26/18 01:45 Attending Provider: Tomasa Correa Admit Provider: Hakan Hercules Primary Care Provider: Hawa Vera Other Providers: Hakan Hercules ; Nasima Wilson Gregory ; Nik Wallace ; Carmelo Jones Service: Medical Other Interventions: Discharge Summary Assessment (RN) Last Done: 11/28/18 17:00 DC Date/Time DO NOT enter until pt leaves facility: 11/28/18 17:55
== END 2018-11-28 17:55 | disposition home or self-care (01) | DRG 638 ==
LOC: ED 20:48 → SUATTDRO 11-26 01:45 → 2W 11-26 01:45 → 1E 11-26 07:52 → 2W 11-27 13:17

== ENCOUNTER 2019-02-09 11:39 | Inpatient (IN) ==
[2019-02-09] MEDS ORDERED: SODIUM CHLORIDE 0.9% 1000ML 1,000 ML IV ONE (12:10)
[2019-02-09] MEDS ORDERED: ONDANSETRON INJ 2 MG/ML 2 ML VIAL IV STA (12:10)
[2019-02-09 12:17] LABS: Hematocrit (blood only) 38.4 % (37-47); Hemoglobin 12.6 g/dL (12.0-16.0); Mean Corpuscular Hemoglobin 29.9 pg (25-34); Mean Corpuscular Hgb Conc 32.8 g/dL (32-36); Mean Corpuscular Volume 91.2 fL (80-100); Mean Platelet Volume 11.1 fL (7.4-10.4); Platelet Count 280 K/uL (130-400); RDW Coefficient of Variation 14.7 % (11.5-14.5); RDW Standard Deviation 48.8 fL (36.4-46.3); Red Blood Count 4.21 M/uL (4.2-5.4); White Blood Count 13.76 K/uL (4.8-10.8)
[2019-02-09 12:32] LABS: Alanine Aminotransferase 22 U/L (12-78); Albumin Level 3.8 gm/dl (3.4-5.0); Alkaline Phosphatase 79 U/L (45-117); Aspartate Aminotransferase 17 U/L (15-37); BUN Creatinine Ratio 23.9 (10-20); Bilirubin Direct 0.3 mg/dl (0-0.2); Bilirubin,Total 0.9 mg/dl (0.2-1); Blood Urea Nitrogen 34 mg/dl (7-18); Calcium 9.4 mg/dl (8.5-10.1); Carbon Dioxide 18 mmol/L (21-32); Chloride 95 mmol/L (98-107); Creatinine Clr Calc Pharmacy 35.5 ml/min; Est GFR (African American) 43.7; Est GFR (Non-African American) 37.7; Glucose 547 mg/dl (70-99); Lipase 80 U/L (73-393); Sodium 132 mmol/L (136-145); Total Protein 7.2 gm/dl (6.4-8.2); Troponin I < 0.015 ng/ml (0-0.045)
[2019-02-09] MEDS ORDERED: DEXTROSE 50% 50 ML SYRINGE IV PRN (12:34)
[2019-02-09] MEDS ORDERED: GLUCOSE 10 TABS/TUBE PO PRN (12:34)
[2019-02-09] MEDS ORDERED: GLUCAGON FOR INJ 1 MG VIAL SQ PRN (12:34)
[2019-02-09] MEDS ORDERED: GLUCOSE 40% GEL 15 GM TUBE PO PRN (12:34)
[2019-02-09] MEDS ORDERED: ED DKA INSULIN DRIP ONE (12:34)
[2019-02-09] MEDS ORDERED: DKA GOAL RANGE 150-250 mg/dl ONE ×2 (12:34→16:00)
[2019-02-09] MEDS ORDERED: CARBOHYDRATES FOR HYPOGLYCEMIA PO PRN (12:34)
[2019-02-09 12:43] LABS: Beta-Hydroxybutyrate 43.82 mg/dl (0.2-2.81)
[2019-02-09] MEDS ORDERED: SODIUM CHLORIDE 0.9% 1000ML 1,000 ML IV SCH (12:45)
[2019-02-09 13:01] LABS: Basophils # (auto) 0.01 K/uL (0-0.2); Basophils % (auto) 0.1 %; Echinocytes 2+; Immature Granulocytes # (auto) 0.04 K/uL (0.00-0.02); Immature Granulocytes % (auto) 0.3 %; Lymphocytes # (auto) 0.77 K/uL (1.2-3.4); Lymphocytes % (auto) 5.6 %; Monocytes # (auto) 0.38 K/uL (0.11-0.59); Monocytes % (auto) 2.8 %; Neutrophils # (auto) 12.56 K/uL (1.4-6.5); Neutrophils % (auto) 91.2 %; Toxic Vacuolation 2+
[2019-02-09] MEDS: NORMOSOL-R 1,000 ML IV ONE ×2 (13:11→15:27)
[2019-02-09] MEDS: INSULIN REGULAR 250 UNITS in SODIUM CHLORIDE 0.9% 247.5 ML IV SCH (13:11)
--- NOTE | 2019-02-09 14:04 | History & Physical Report ---
Date of Service February 09, 2019 Assessment & Plan (1) DKA (diabetic ketoacidoses): This is a 68-year-old female with a PMH of type 1 diabetes on insulin pump, CAD, history of peptic ulcer disease and other medical problems listed below who presents after waking up with nausea and vomiting this morning and was found to have DKA. -Patient is feeling better and has clinically improved. Receiving second liter of IV fluid bolus -Started on insulin pump in the ED. Discussed management with glycemic pharmacy. Monitor lab work Q4H. Aggressive fluid resuscitation -VBG pH of 7.15 in with metabolic acidosis in setting of DKA. Expect improvement with correction of DKA -No clear evidence of infection but initially hypotensive with lactic acidosis in setting of DKA. Receiving IV fluid resuscitation appropriate for sepsis, blood and urine cultures collected -Follows with [facility] of endocrinology. Recent admission for DKA in Nov and basal insulin dose was increased on pump (2) Acute kidney injury: Cr elevated at 1.44 (baseline ~0.8) -In setting of DKA -Fluid resuscitation -Daily BMP (3) Abdominal pain: Persistent burning abdominal pain for the past few months, h/o PUD and concern for gastroparesis -Recently seen by GI service who ordered stool sample for H. pylori, patient then instructed to start Protonix. Diagnostic EGD ordered for February -H pylori stool sample ordered -Dicyclomine ordered PRN, start PPI once stool sample collected -Consider GI consult while in-patient (4) CAD (coronary artery disease): No chest pain, no acute EKG changes (5) Anxiety: Continue Valium as prescribed DVT Ppx: SQ heparin Code status: FULL PCP: Jody Dispo: Admitted to PCU. Plan to return home once medically stable. Patient seen in collaboration with Dr. Correa. Please see addendum. History of Present Illness Chief Complaint: Nausea, vomiting, diarrhea Primary Care Provider: Hawa Vera, This is a 68-year-old female with a PMH of type 1 diabetes on insulin pump, CAD, history of peptic ulcer disease and other medical problems listed below who presents after waking up with nausea and vomiting this morning. Had 4 bouts of bilious emesis today as well as having diarrhea. Also experiencing headache, blurred vision, increased thirst and some confusion. Has been using insulin pump as instructed and follows a strict low diet. Has had ongoing persistent burning abdominal pain for the past few months and was evaluated by GI service for this recently and was instructed to submit a stool sample for H pylori and then start a PPI. Scheduled for diagnostic EGD at the end of February. Patient has not yet submitted stool sample, so has yet to start protonix. Denies any fever, chills, lightheadedness, chest pain, palpitations, shortness of breath, dysuria or constipation. Of note, patient was recently admitted to the ICU at the beginning of November 2018 for persistent hypotension in the setting of sepsis, DKA and SHARDA. Was evaluated by infectious disease who felt that patient had clinical picture of sepsis with elevated procalcitonin, lactic acid, and white count, clinically improved with imipenem, but no clear-cut source of infection. Also evaluated by general surgery for initial concern for ischemic bowel but abdominal pain but exam was benign pain eventually subsided. Followed up with endocrinology following recent hospitalization and basal insulin rates were increased and patient was instructed to remain better hydrated. Allergies Allergy/AdvReac Type Severity Reaction Status Date / Time Penicillins Allergy Unknown . Verified 02/09/19 12:52 promethazine Allergy Unknown . Verified 02/09/19 12:52 Sulfa (Sulfonamide AdvReac Unknown RASH,VOMITI Verified 02/09/19 12:52 Antibiotics) NG Home Medications Home Medications Medication Instructions Recorded Confirmed Type cyanocobalamin (vitamin B-12) 1,000 mcg SQ MONTHLY 11/05/18 02/09/19 History 1,000 mcg/mL injection solution diazepam 5 mg tablet 2.5 mg PO BID 11/05/18 02/09/19 History dicyclomine 10 mg capsule 10 mg PO DAILY cap 11/05/18 02/09/19 History hydrocodone 5 mg-acetaminophen 300 0.5 tab PO BID PRN 11/05/18 02/09/19 History mg tablet insulin aspart U-100 100 100 See Rx Instructions SQ .COMPLEX 11/05/18 02/09/19 History unit/mL subcutaneous solution omega-3 fatty acids 1,000 mg 1,000 mg PO DAILY 11/05/18 02/09/19 History capsule raloxifene 60 mg tablet 60 mg PO DAILY 11/05/18 02/09/19 History carisoprodol [Soma] 250 mg PO UD PRN 11/25/18 02/09/19 History diclofenac sodium 50 mg PO UD PRN 11/25/18 02/09/19 History diazepam 5 mg PO HS PRN 02/09/19 02/09/19 History Past Med/Surg History Medical History (Updated 02/09/19 @ 14:45 by Sonia Alejo PA-C) Anxiety (Chronic) CAD (coronary artery disease) Patient is Jainism (Chronic) Pernicious anemia (Chronic) Type 1 diabetes (Chronic) Surgical History H/O: hysterectomy History of appendectomy Hx of cholecystectomy Family History Other Liver cancer Social History (Updated 02/09/19 @ 14:18 by Sonia Alejo PA-C) Preferred Language: Ghanaian Communication Ability: Effective 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 Physical Exam Physical Exam: General Appearance: WD/WN, vitals as above, appears acutely ill, cooperative with exam Head: normocephalic, atraumatic Eyes: normal inspection, PERRL, conjunctivae normal, anicteric sclerae ENT: external ear and nose normal, dry mucous membranes of oropharynx Neck: trachea midline, no thyromegaly normal visual inspection Respiratory: normal respiratory effort, lungs clear to auscultation, no wheeze, rales, rhonchi. Normal insp/exp effort, no accessory muscle use Cardiovascular: tachycardic, regular rhythm, no murmur, normal peripheral pulses. Vessels: no JVD or carotid bruit Chest: normal inspection of chest Abdomen/GI: normal bowel sounds, soft, nontender, no hepatosplenomegaly Extremities/Musculoskelatal: no cyanosis or clubbing, extremities motor strength 5/5 Neurologic: PERRL, EOMI, accommodation nl, no face palsy, no dysarthria CN's II-XI intact bilaterally and moves all extremities Psychiatric: A+Ox3, + anxious Skin: no rashes, normal color, warm/dry Results & Data Vital Signs (Past 12 Hours) Vital Signs Temp Pulse Resp BP Pulse Ox 02/09/19 11:50 100 02/09/19 11:47 36.5 C 102 H 20 93/68 L 100 Laboratory Results Short CBC 02/09/19 Range/Units 11:57 WBC 13.76 H (4.8-10.8) K/uL Hgb 12.6 (12.0-16.0) g/dL Hct 38.4 (37-47) % Plt Count 280 (130-400) K/uL BMP 02/09/19 11:57 Sodium 132 L Potassium 5.0 Chloride 95 L Carbon Dioxide 18 L BUN 34 H Creatinine 1.44 H Glucose 547 H* Calcium 9.4 Cardiac Enzymes 02/09/19 Range/Units 11:57 Troponin I < 0.015 (0-0.045) ng/ml Liver Function 02/09/19 Range/Units 11:57 Total Bilirubin 0.9 (0.2-1) mg/dl Direct Bilirubin 0.3 H (0-0.2) mg/dl AST 17 (15-37) U/L ALT 22 (12-78) U/L Alkaline Phosphatase 79 (45-117) U/L Albumin 3.8 (3.4-5.0) gm/dl Diagnostic Findings Chest/abdomen XR: Pending ECG Rhythm: sinus tachycardia Findings: + LAFB Supervising Physician Co-Signing Physician Notes Attending addendum: The patient was seen and examined in the emergency room She is 68 years old female with insulin-dependent diabetes on insulin pump Oh couple in the morning with abdominal discomfort nausea vomiting and diarrhea and noted to have a blood sugar of more than 500 She still feels some discomfort in the abdomen but denies any more nausea and/or vomiting or diarrhea She noted to have DKA on presentation with pH of 7.1 on venous blood Her blood pressure was on the lower side of normal but that improved with intravenous fluid She was admitted to telemetry unit for continuation of care On examination No apparent distress at rest but looks ill Hemodynamically stable during my present examination with tachycardia of 112 and blood pressure of 126/57 Chest-clear to auscultate bilaterally Heart-S1-S2, regular Abdomen-soft, nontender, bowel sounds present Extremities-no edema 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 Generally weak Admission labs and imaging studies reviewed Has diabetic ketoacidosis likely secondary to gastroparesis with symptoms of nausea vomiting and diarrhea Doubt any acute infection but urine and blood culture have been sent to rule out any infection Intravenous insulin has been started as per glycemic pharmacist We will give adequate amount of intravenous fluid to correct the dehydration and control blood pressure Agree with assessment plan as outlined above by ENMA Ortega Dr (1) DKA (diabetic ketoacidoses) Diabetes mellitus complication detail: without coma Diabetes mellitus type: other specified (including PARDEEP) Qualified Code(s): E13.10 - Other specified diabetes mellitus with ketoacidosis without coma
--- NOTE | 2019-02-09 14:33 | XRay Report ---
CHEST AND ABDOMEN 2 VIEWS HISTORY: Vomiting. COMPARISON: Abdomen and pelvis CT 11/26/2018. FINDINGS: The lungs are clear. The cardiomediastinal silhouette is within normal limits. There is no pneumoperitoneum or pneumatosis. The bowel gas pattern is unremarkable. No evidence for b owel obstruction. No renal or ureteral calculi. IMPRESSION: No acute cardiopulmonary process. No evidence for bowel obstruction. Electronically signed by: Lamine Gutiérrez M.D. 02/09/2019 2:32 PM
--- NOTE | 2019-02-09 14:57 | Emergency Department Note ---
Entered by Domenic Moser acting as a scribe for History of Present Illness General Chief complaint: Hyperglycemia Time Seen by Provider: 02/09/19 11:57 Source: patient History of Present Illness Provider complaint: Abdominal pain Onset (ago): hour(s) 5 Location: abdomen Pain Consistency: + constant Maximum Pain Intensity: 5 Current Pain Intensity: 5 Quality: + burning Associated symptoms: + nausea/vomiting, + shortness of breath and + other (Diarrhea); no fever/chills The patient is a 68 year old female who presents to the Emergency Room with complaints of constant upper abdominal pain that started this morning. The patient rates the pain as a 5/10 and notes it is a burning sensation. The patient reports that since the onset of the pain she has had nausea, vomiting and diarrhea. The patient added that she is a diabetic and her sugars have been running high. The patient reports that this morning her sugar was in the 400s, and BLS's most recent level was 432. The patient also endorses some shortness of breath this morning while walking to the bathroom, but she denies any chest pain. Home Medications Home Medications Medication Instructions Recorded Confirmed Type cyanocobalamin (vitamin B-12) 1,000 mcg SQ MONTHLY 11/05/18 02/09/19 History 1,000 mcg/mL injection solution diazepam 5 mg tablet 2.5 mg PO BID 11/05/18 02/09/19 History dicyclomine 10 mg capsule 10 mg PO DAILY cap 11/05/18 02/09/19 History hydrocodone 5 mg-acetaminophen 300 0.5 tab PO BID PRN 11/05/18 02/09/19 History mg tablet insulin aspart U-100 100 100 See Rx Instructions SQ .COMPLEX 11/05/18 02/09/19 History unit/mL subcutaneous solution omega-3 fatty acids 1,000 mg 1,000 mg PO DAILY 11/05/18 02/09/19 History capsule raloxifene 60 mg tablet 60 mg PO DAILY 11/05/18 02/09/19 History carisoprodol [Soma] 250 mg PO UD PRN 11/25/18 02/09/19 History diclofenac sodium 50 mg PO UD PRN 11/25/18 02/09/19 History diazepam 5 mg PO HS PRN 02/09/19 02/09/19 History Allergies Allergy/AdvReac Type Severity Reaction Status Date / Time Penicillins Allergy Unknown . Verified 02/09/19 12:52 promethazine Allergy Unknown . Verified 02/09/19 12:52 Sulfa (Sulfonamide AdvReac Unknown RASH,VOMITI Verified 02/09/19 12:52 Antibiotics) NG Past Med/Surg History Medical History (Updated 02/09/19 @ 14:45 by Sonia Alejo PA-C) Anxiety (Chronic) CAD (coronary artery disease) Patient is Episcopal (Chronic) Pernicious anemia (Chronic) Type 1 diabetes (Chronic) Surgical History H/O: hysterectomy History of appendectomy Hx of cholecystectomy Family History Other Liver cancer Social History (Updated 02/09/19 @ 14:18 by Sonia Alejo PA-C) Preferred Language: Iranian Communication Ability: Effective Processing Spec Required: No Beliefs That Will Affect Care: Jewish Jewish Beliefs: Episcopal Current Living Situation: Family Feels Safe at Home: Yes Smoking Status: Never smoker Hx Alcohol Use: No Hx Substance Use: No Review of Systems See HPI for pertinent positives & negatives. and A total of 10 systems reviewed and were otherwise negative Physical Exam Vital Signs Vital Signs - 24 hr 02/09/19 11:47 02/09/19 11:50 02/09/19 14:48 Temperature 36.5 C Temperature Source Oral Pulse Rate 102 H Pulse Rate [Right Finger] 110 H Respiratory Rate 20 18 Respiratory Effort / Characteristics Non-Labored Spontaneous Non-Labored Spontaneous Respiratory Depth Normal Normal Respiratory Pattern Regular Regular Blood Pressure 93/68 L Blood Pressure [Right Arm] 126/61 Blood Pressure Mean 76 Blood Pressure Mean [Right Arm] 82 Blood Pressure Position Lying Blood Pressure Position [Right Arm] Lying Pulse Oximetry 100 100 96 Oxygen Delivery Method Room Air Room Air Room Air Sepsis Recent Fever Within 48 Hours No Sepsis New/Unexplained Change in Mental Status No Sepsis Action Taken by Nursing No Action Required GENERAL: She is oriented to person, place, and time. She appears well-developed and well-nourished. She does not appear distressed. HENT: Exam performed. \u00b7 Head: Normocephalic and atraumatic. \u00b7 Right Ear: External ear normal. No mastoid tenderness. \u00b7 Left Ear: External ear normal. No mastoid tenderness. \u00b7 Mouth/Throat: The oropharynx is clear and moist. No trismus in the jaw. No dental abscesses or uvula swelling. No oropharyngeal exudate or tonsillar abscesses. EYES: Conjunctivae and EOM are normal. Pupils are equal, round, and reactive to light. Right eye exhibits no discharge. Left eye exhibits no discharge. No scleral icterus. NECK: Normal range of motion. Neck supple. No JVD present. No spinous process tenderness present. No carotid bruit present. No rigidity. No tracheal deviation and normal range of motion present. No Brudzinski's sign and no Kernig's sign noted. CV: Normal rate, regular rhythm, normal heart sounds and intact distal pulses. There is no peripheral edema. Palpable radial pulses bue. PULM/CHEST: Effort normal and breath sounds normal. No respiratory distress. No stridor. She has no wheezes. She has no rales. Chest Wall: She exhibits no tenderness. ABD: The abdomen is soft. Bowel sounds are normal. She has no distension. No mass is present. There diffuse pain on palpation. There is no rebound, no guarding, no Barragan's sign and no tenderness at McBurney's point. Rovsig negative. Insulin pump in place. MUSC/SKEL: Normal range of motion. There is no peripheral edema, tenderness or deformity. LYMPH: No cervical adenopathy. NEURO: She is alert and oriented to person, place, and time. She has normal strength. No cranial nerve deficit or sensory deficit. Coordination and gait normal. GCS eye subscore is 4. GCS verbal subscore is 5. GCS motor subscore is 6. cerbellar tests wnl. SKIN: Skin is warm and dry. She is not diaphoretic. PSYCH: She has a normal mood and affect. Her behavior is normal. Judgment and thought content normal. Course Course 1205: Past medical records reviewed. The patient was evaluated in room C03, and a complete history and physical examination were performed. 1236: The patient remains tachycardic so I will repeat fluid bolus. Labs show BSG of 547, potassium of 5, Creat 1.4, WBC of 13.7. The patient is in DKA and will be started on an insulin drip. She was told to turn off her insulin pump which she did. It is thought that the pump is not working properly. She will be admitted to [facility] service. I spoke to Sonia Lowe PAC under Dr. Madeline Weeks about the patient's case. They are going to accept the patient for further evaluation. Consultations Consultation #1: I spoke to Sonia Lowe PAC under Dr. Madeline Weeks about the patient's case. They are going to accept the patient for further evaluation. Time: 12:36 Administered Medications Insulin Human Regular 250 (units/ Sodium Chloride) 250 mls @ 8.1 mls/hr IV .Q24H [facility]; Protocol Stop: 03/11/19 12:44 Last Titration: 02/09/19 14:44 Dose: 8.1 units/hr, 8.1 mls/hr Documented by: [id number] Cosigned by: [id number] Admin: 02/09/19 13:11 Dose: 5.8 units/hr, 5.8 mls/hr Documented by: [id number] Cosigned by: [id number] Discontinued Medications Sodium Chloride (Nss 1000ml) 1,000 mls @ 999 mls/hr IV .Q1H1M ONE Stop: 02/09/19 13:10 Last Infusion: 02/09/19 13:20 Dose: 0 mls/hr Documented by: [id number] Admin: 02/09/19 12:12 Dose: 999 mls/hr Documented by: [id number] Miscellaneous (Insulin Protocol Dka Goal Range) 1 ea N/A ONE ONE Stop: 02/09/19 12:35 Last Admin: 02/09/19 13:11 Dose: 1 ea Documented by: [id number] Ondansetron HCl (Zofran) 4 mg IV NOW STA Stop: 02/09/19 12:11 Last Admin: 02/09/19 12:14 Dose: 4 mg Documented by: [id number] Critical Care Time Critical Care Time: Yes Total Critical Care Time: 60 I have personally spent greater than 60 minutes of critical care time in the direct management of this patient. This includes bedside care, interpretation of diagnostic studies, and testing, discussion with consultants, patient, and family members, and other required patient management activities. This 60 minutes is in excess of all separately billable procedures. Medical Decision Making Medical Records Attestation: I reviewed the patient's medical records. Home Medications Current Medication List: was personally reviewed by me Laboratory Data Attestation: I reviewed the patient's lab results. Result diagrams: 02/09/19 11:57 02/09/19 11:57 Lab Results 02/09/19 02/09/19 02/09/19 Range/Units 11:44 11:45 11:57 WBC 13.76 H (4.8-10.8) K/uL RBC 4.21 (4.2-5.4) M/uL Hgb 12.6 (12.0-16.0) g/dL Hct 38.4 (37-47) % MCV 91.2 (80-100) fL MCH 29.9 (25-34) pg MCHC 32.8 (32-36) g/dL RDW Std Deviation 48.8 H (36.4-46.3) fL RDW Coeff of Maria Del Carmen 14.7 H (11.5-14.5) % Plt Count 280 (130-400) K/uL MPV 11.1 H (7.4-10.4) fL Immature Gran % (Auto) 0.3 % Neut % (Auto) 91.2 % Lymph % (Auto) 5.6 % [place] % (Auto) 2.8 % Eos % (Auto) 0.0 % Baso % (Auto) 0.1 % Immature Gran # (Auto) 0.04 H (0.00-0.02) K/uL Neut # (Auto) 12.56 H (1.4-6.5) K/uL Lymph # (Auto) 0.77 L (1.2-3.4) K/uL [place] # (Auto) 0.38 (0.11-0.59) K/uL Eos # (Auto) 0.00 (0-0.5) K/uL Baso # (Auto) 0.01 (0-0.2) K/uL Toxic Vacuolation 2+ Echinocytes 2+ VBG pH (7.36-7.41) Sodium (136-145) mmol/L Potassium (3.5-5.1) mmol/L Chloride (98-107) mmol/L Carbon Dioxide (21-32) mmol/L Anion Gap (3-11) BUN (7-18) mg/dl Creatinine (0.6-1.2) mg/dl Est Cr Clr Drug Dosing ml/min Est GFR ( Amer) Est GFR (Non-Af Amer) BUN/Creatinine Ratio (10-20) Glucose (70-99) mg/dl POC Glucose 471 H* 444 H* (70-99) Lactate (0.4-2.0) mmol/L Calcium (8.5-10.1) mg/dl Total Bilirubin (0.2-1) mg/dl Direct Bilirubin (0-0.2) mg/dl AST (15-37) U/L ALT (12-78) U/L Alkaline Phosphatase (45-117) U/L Troponin I (0-0.045) ng/ml Total Protein (6.4-8.2) gm/dl Albumin (3.4-5.0) gm/dl Lipase (73-393) U/L Beta-Hydroxybutyric Acd (0.2-2.81) mg/dl 02/09/19 02/09/19 02/09/19 Range/Units 11:57 13:12 13:24 WBC (4.8-10.8) K/uL RBC (4.2-5.4) M/uL Hgb (12.0-16.0) g/dL Hct (37-47) % MCV (80-100) fL MCH (25-34) pg MCHC (32-36) g/dL RDW Std Deviation (36.4-46.3) fL RDW Coeff of Maria Del Carmen (11.5-14.5) % Plt Count (130-400) K/uL MPV (7.4-10.4) fL Immature Gran % (Auto) % Neut % (Auto) % Lymph % (Auto) % [place] % (Auto) % Eos % (Auto) % Baso % (Auto) % Immature Gran # (Auto) (0.00-0.02) K/uL Neut # (Auto) (1.4-6.5) K/uL Lymph # (Auto) (1.2-3.4) K/uL [place] # (Auto) (0.11-0.59) K/uL Eos # (Auto) (0-0.5) K/uL Baso # (Auto) (0-0.2) K/uL Toxic Vacuolation Echinocytes VBG pH 7.15 L (7.36-7.41) Sodium 132 L (136-145) mmol/L Potassium 5.0 (3.5-5.1) mmol/L Chloride 95 L (98-107) mmol/L Carbon Dioxide 18 L (21-32) mmol/L Anion Gap 19.0 H (3-11) BUN 34 H (7-18) mg/dl Creatinine 1.44 H (0.6-1.2) mg/dl Est Cr Clr Drug Dosing 35.5 ml/min Est GFR ( Amer) 43.7 Est GFR (Non-Af Amer) 37.7 BUN/Creatinine Ratio 23.9 H (10-20) Glucose 547 H* (70-99) mg/dl POC Glucose 462 H* (70-99) Lactate (0.4-2.0) mmol/L Calcium 9.4 (8.5-10.1) mg/dl Total Bilirubin 0.9 (0.2-1) mg/dl Direct Bilirubin 0.3 H (0-0.2) mg/dl AST 17 (15-37) U/L ALT 22 (12-78) U/L Alkaline Phosphatase 79 (45-117) U/L Troponin I < 0.015 (0-0.045) ng/ml Total Protein 7.2 (6.4-8.2) gm/dl Albumin 3.8 (3.4-5.0) gm/dl Lipase 80 (73-393) U/L Beta-Hydroxybutyric Acd 43.82 H (0.2-2.81) mg/dl 02/09/19 02/09/19 Range/Units 13:24 14:30 WBC (4.8-10.8) K/uL RBC (4.2-5.4) M/uL Hgb (12.0-16.0) g/dL Hct (37-47) % MCV (80-100) fL MCH (25-34) pg MCHC (32-36) g/dL RDW Std Deviation (36.4-46.3) fL RDW Coeff of Maria Del Carmen (11.5-14.5) % Plt Count (130-400) K/uL MPV (7.4-10.4) fL Immature Gran % (Auto) % Neut % (Auto) % Lymph % (Auto) % [place] % (Auto) % Eos % (Auto) % Baso % (Auto) % Immature Gran # (Auto) (0.00-0.02) K/uL Neut # (Auto) (1.4-6.5) K/uL Lymph # (Auto) (1.2-3.4) K/uL [place] # (Auto) (0.11-0.59) K/uL Eos # (Auto) (0-0.5) K/uL Baso # (Auto) (0-0.2) K/uL Toxic Vacuolation Echinocytes VBG pH (7.36-7.41) Sodium (136-145) mmol/L Potassium (3.5-5.1) mmol/L Chloride (98-107) mmol/L Carbon Dioxide (21-32) mmol/L Anion Gap (3-11) BUN (7-18) mg/dl Creatinine (0.6-1.2) mg/dl Est Cr Clr Drug Dosing ml/min Est GFR ( Amer) Est GFR (Non-Af Amer) BUN/Creatinine Ratio (10-20) Glucose (70-99) mg/dl POC Glucose 469 H* (70-99) Lactate 5.7 H* (0.4-2.0) mmol/L Calcium (8.5-10.1) mg/dl Total Bilirubin (0.2-1) mg/dl Direct Bilirubin (0-0.2) mg/dl AST (15-37) U/L ALT (12-78) U/L Alkaline Phosphatase (45-117) U/L Troponin I (0-0.045) ng/ml Total Protein (6.4-8.2) gm/dl Albumin (3.4-5.0) gm/dl Lipase (73-393) U/L Beta-Hydroxybutyric Acd (0.2-2.81) mg/dl ECG Data Attestation: I personally reviewed and interpreted this ECG as follows: Indication: + vomiting Rate (beats per minute): 101 Rhythm: + sinus tachycardia ECG Intervals/blocks: + Normal QRS and + Normal QT ECG ST segments: + T-wave inversions (aVL); no ST depression and no ST elevation ECG Findings: + Other (Normal DC) Blood Pressure Blood Pressure Findings: Low blood pressure Blood Pressure Disposition: further management by hospitalist MDM Narrative The patient remains tachycardic so I will repeat fluid bolus. Labs show BSG of 547, potassium of 5, Creat 1.4, WBC of 13.7. The patient is in DKA and will be started on an insulin drip. She was told to turn off her insulin pump which she did. It is thought that the pump is not working properly. She will be admitted to [facility] Hospitalist service. I spoke to Sonia Lowe PAC under Dr. Madeline Lowe Hospitalist about the patient's case. They are going to accept the patient for further evaluation. Impression & Plan DKA (diabetic ketoacidoses) Discharge Plan Visit Data Chief Complaint: Hyperglycemia ED Provider: Bin Cornejo Discharge Problem: DKA (diabetic ketoacidoses) Patient Disposition: Being Evaluated by Hospitalist Forms Stand Alone Forms: My [facility] [place] [employer] Prescriptions Prescriptions: No Action dicyclomine 10 mg capsule 10 mg PO DAILY RF: 0 raloxifene [Evista] 60 mg tablet 60 mg PO DAILY RF: 0 hydrocodone-acetaminophen [Vicodin] 5-300 mg tablet 0.5 tab PO BID PRN (Reason: Pain) RF: 0 diazepam 5 mg tablet 2.5 mg PO BID RF: 0 omega-3 fatty acids 1,000 mg capsule 1,000 mg PO DAILY RF: 0 cyanocobalamin (vitamin B-12) 1,000 mcg/mL solution 1,000 mcg SQ MONTHLY RF: 0 Novolog U-100 Insulin aspart 100 unit/mL solution See Rx Instructions SQ .COMPLEX RF: 0 diclofenac sodium 50 mg Tablet,Delayed Release (Dr/Ec) 50 mg PO UD PRN (Reason: Pain) RF: 0 carisoprodol [Soma] 250 mg Tablet 250 mg PO UD PRN (Reason: MUSCLE SPASMS) RF: 0 diazepam 5 mg Tablet 5 mg PO HS PRN (Reason: Anxiety) RF: 0 Referrals Referrals: Hawa Vera DO [Primary Care Provider] - Discharge Problem: DKA (diabetic ketoacidoses) Qualifiers: Diabetes mellitus type: other specified (including PARDEEP) Diabetes mellitus complication detail: without coma Qualified Code(s): E13.10 - Other specified diabetes mellitus with ketoacidosis without coma The scribe's documentation has been prepared under my direction and personally reviewed by me in its entirety. I confirm that the note above accurately reflects all work, treatment, procedures, and medical decision making performed by me.
[2019-02-09 15:37] LABS: Base Excess ABG -9.3 mEq/L (-9-1.8); HCO3 ABG 16 mmol/L (19-24); PCO2 ABG 30 mmHg (35-46); PO2 ABG 115 mm/Hg (80-95); pH ABG 7.33 (7.35-7.45)
[2019-02-09 15:56] LABS: Allen Test Pos (Pos)
[2019-02-09] MEDS ORDERED: INSULIN REGULAR 250 UNITS in SODIUM CHLORIDE 0.9% 247.5 ML IV SCH (16:00)
[2019-02-09] MEDS ORDERED: NORMOSOL-R 1,000 ML IV SCH (16:00)
[2019-02-09] MEDS ORDERED: ACETAMINOPHEN 325 MG TAB PO PRN (16:00)
[2019-02-09] MEDS ORDERED: ONDANSETRON INJ 2 MG/ML 2 ML VIAL IV PRN (16:00)
[2019-02-09] MEDS ORDERED: PHARMACY GLYCEMIC MGMT CONSULT PRN (16:12)
[2019-02-09] MEDS ORDERED: DICLOFENAC SODIUM 25 MG TABDR PO PRN (16:30)
[2019-02-09] MEDS ORDERED: INSULIN ASPART 100 UNITS/ML 3 ML PEN SC SCH (16:30)
[2019-02-09] MEDS: diazePAM 5 MG TABLET PO SCH (16:57)
[2019-02-09] MEDS: PENDING D5 1/2NS+20mEq KCL IVF SCH (16:58)
[2019-02-09] MEDS: PENDING 1/2NSS+20mEq KCL IVF SCH (16:58)
[2019-02-09] MEDS: INSULIN ASPART 100 UNITS/ML 3 ML PEN SC SCH ×2 (16:58→22:46)
[2019-02-09 17:27] LABS: BUN Creatinine Ratio 26.3 (10-20); Calcium 8.8 mg/dl (8.5-10.1); Creatinine Clr Calc Pharmacy 41.5 ml/min; Est GFR (African American) 52.9; Est GFR (Non-African American) 45.7; Magnesium 2.5 mg/dl (1.8-2.4); Phosphorus 3.4 mg/dl (2.5-4.9); Potassium 4.1 mmol/L (3.5-5.1)
[2019-02-09] MEDS ORDERED: Nursing to Pharmacy Communication ONE (19:23)
[2019-02-09] MEDS: D5W AND 1/2NSS + 20MEQ KCL 20 MEQ/1,000 ML BAG IV SCH (20:05)
[2019-02-09] MEDS: RALOXIFENE HCL 60 MG TAB PO SCH (20:18)
[2019-02-09] MEDS: diazePAM 5 MG TABLET PO PRN (20:18)
[2019-02-09 20:32] LABS: Appearance Urine Clear (Clear); Bilirubin Urine Negative (Negative); Blood Urine Negative (Negative); Color Urine Yellow; Glucose Urine UA 1+ (Negative); Ketones Urine 2+ (Negative); Leukocyte Esterase Urine Negative (Negative); Nitrite Urine Negative (Negative); Protein Urine Negative (Negative); Specific Gravity Urine 1.021 (1.000-1.030); Urobilinogen Urine Negative (Negative)
[2019-02-09 20:53] LABS: BUN Creatinine Ratio 23.2 (10-20); Calcium 8.9 mg/dl (8.5-10.1); Creatinine Clr Calc Pharmacy 41.5 ml/min; Est GFR (African American) 52.9; Est GFR (Non-African American) 45.7; Magnesium 2.4 mg/dl (1.8-2.4); Potassium 3.9 mmol/L (3.5-5.1)
[2019-02-09 22:05] LABS: Phosphorus 2.4 mg/dl (2.5-4.9)
[2019-02-09] MEDS: HEPARIN SOD 5,000 UNIT/0.5 ML VIAL SQ SCH (22:59)
[2019-02-10 00:49] LABS: BUN Creatinine Ratio 20.6 (10-20); Calcium 8.5 mg/dl (8.5-10.1); Creatinine Clr Calc Pharmacy 48.7 ml/min; Est GFR (African American) 64.1; Est GFR (Non-African American) 55.3; Magnesium 2.5 mg/dl (1.8-2.4); Potassium 3.9 mmol/L (3.5-5.1)
[2019-02-10 00:50] LABS: Phosphorus 2.3 mg/dl (2.5-4.9)
[2019-02-10] MEDS: D5W AND 1/2NSS + 20MEQ KCL 20 MEQ/1,000 ML BAG IV SCH ×2 (02:53→09:16)
[2019-02-10 04:37] LABS: BUN Creatinine Ratio 18.5 (10-20); Calcium 8.3 mg/dl (8.5-10.1); Creatinine Clr Calc Pharmacy 53.2 ml/min; Est GFR (African American) 71.4; Est GFR (Non-African American) 61.6; Magnesium 2.3 mg/dl (1.8-2.4); Phosphorus 2.7 mg/dl (2.5-4.9)
[2019-02-10] MEDS: HEPARIN SOD 5,000 UNIT/0.5 ML VIAL SQ SCH ×3 (05:15→20:39)
[2019-02-10] MEDS: HYDROCODONE/ACETAMOPHEN 5/325MG TAB PO PRN ×2 (08:15→13:32)
[2019-02-10] MEDS: diazePAM 5 MG TABLET PO SCH ×2 (08:16→13:32)
[2019-02-10] MEDS: DICYCLOMINE HCL 10 MG CAP PO SCH (08:17)
[2019-02-10 08:23] LABS: BUN Creatinine Ratio 18.3 (10-20); Calcium 8.4 mg/dl (8.5-10.1); Creatinine Clr Calc Pharmacy 55.6 ml/min; Est GFR (African American) 75.2; Est GFR (Non-African American) 64.9; Magnesium 2.1 mg/dl (1.8-2.4); Phosphorus 2.5 mg/dl (2.5-4.9); Potassium 3.8 mmol/L (3.5-5.1)
[2019-02-10] MEDS ORDERED: INFLUENZA VACCINE HIGH DOSE 65+ 0.5 ML SYR IM ONE (08:30)
[2019-02-10] MEDS ORDERED: PNEUMOCOCCAL ADMINISTRATION CHARGE ONE (08:30)
[2019-02-10] MEDS ORDERED: INFLUENZA ADMINISTRATION CHARGE ONE (08:30)
[2019-02-10] MEDS ORDERED: PNEUMOCOCCAL POLYSACCHARIDES 25 MCG/0.5 ML VIAL/SYR IM ONE (08:30)
[2019-02-10] MEDS ORDERED: RALOXIFENE HCL 60 MG TAB PO SCH (09:00)
[2019-02-10] MEDS: PENDING D5 1/2NS+20mEq KCL IVF SCH ×6 (09:16→10:16)
[2019-02-10] MEDS: PENDING 1/2NSS+20mEq KCL IVF SCH ×6 (09:16→10:16)
[2019-02-10] MEDS: INSULIN ASPART 100 UNITS/ML 3 ML PEN SC SCH ×3 (10:14→22:24)
--- NOTE | 2019-02-10 10:18 | Pharmacy Report ---
Glycemic Control Consultation - Date of Service February 10, 2019 - Scope Scope: Glycemic Pharmacist consulted by Sonia Alejo on 02/09/19 for glycemic control and to write orders per [facility] inpatient glycemic control protocol - Objective Weight: 58.5 kg Accuchecks BSG (last 24hrs): 02/09/19 02/09/19 02/09/19 11:44 11:45 11:57 Glucose 547 H* POC Glucose 471 H* 444 H* 02/09/19 02/09/19 02/09/19 13:12 14:30 15:30 Glucose POC Glucose 462 H* 469 H* 349 H* 02/09/19 02/09/19 02/09/19 16:52 16:54 18:39 Glucose 288 H POC Glucose 272 H 222 H 02/09/19 02/09/19 02/09/19 20:01 20:07 20:28 Glucose 126 H POC Glucose 110 H 99 02/09/19 02/09/19 02/09/19 20:59 22:09 23:07 Glucose POC Glucose 180 H 173 H 169 H 02/09/19 02/10/19 02/10/19 23:57 00:20 00:56 Glucose 142 H POC Glucose 137 H 132 H 02/10/19 02/10/19 02/10/19 02:49 04:04 04:10 Glucose 110 H POC Glucose 120 H 103 H 02/10/19 02/10/19 02/10/19 05:06 06:04 07:04 Glucose POC Glucose 150 H 183 H 173 H 02/10/19 02/10/19 07:40 08:03 Glucose 213 H POC Glucose 191 H Laboratory Data (last 24hrs): 02/09/19 02/09/19 02/09/19 11:57 16:52 20:07 Potassium 5.0 4.1 D 3.9 Carbon Dioxide 18 L 21 22 Anion Gap 19.0 H 14.0 H 10.0 Creatinine 1.44 H 1.23 H 1.23 H Est Cr Clr Drug Dosing 35.5 41.5 41.5 Beta-Hydroxybutyric Acd 43.82 H 02/10/19 02/10/19 02/10/19 00:20 04:10 07:40 Potassium 3.9 4.0 3.8 Carbon Dioxide 27 28 24 Anion Gap 6.0 4.0 7.0 Creatinine 1.05 0.96 0.92 Est Cr Clr Drug Dosing 48.7 53.2 55.6 Beta-Hydroxybutyric Acd - Recent Pertinent Medications Outpatient Anti-diabetic Regimen: * Novolog Medtronic pump: previously 12.5u/D basal rate (recently decreased to an unknown basal rate). Goal range: 110-150mg/dL. CF: 60. Carb Ratio: 20 breakfast, 15 lunch, 15 dinner * A1c = 7.7 % 01/21/19 - Assessment & Plan Assessment & Plan: ASSESSMENT: * Ms. Bruner is a 68yo F type 1 diabetic. PMHx consistent with CAD, PUD, among others. Her outpt glycemic management is improving: A1C 8.6% in Apr, most recent A1C in Dec was 7.7%. Per my d/w her, she is very knowledgeable of her disease state and her insulin pump. Labs initially strongly indicative of DKA. AM labs look much improved: pH=7.39, CO2/Bicarb=24, AG= closed. Her emesis has improved and she is ready for food. * I discussed next steps with her. Typically we prefer to transition patients from IV insulin gtt --> basal/bolus-->insulin pump. She would strongly prefer we not trial basal/bolus has this had severe consequences during previous admissions and at d/c. In light of this, i think it would be reasonable to convert her to the pump this afternoon. PLAN FOR INPATIENT GLYCEMIC CONTROL: * Cont. insulin gtt until this afternoon. We will assess after lunch and consider next steps. Current gtt rate is 1.2u/hr since 0400 this AM. I understand this 2.5x her normal basal rate. We will transition to the pump once the gtt rate decreases to her normal rate. * Cont. lab/e-lyte monitoring to ensure resolution of DKA. * Please note that the plan above was derived based on current level of insulin resistance and hospital stress. These recommendations are appropriate for inpatient admission only. Plan of care upon discharge will need to be reassessed to avoid potential outpatient hypo/hyperglycemia. Thank you.
[2019-02-10] MEDS ORDERED: D5W AND 1/2NSS 1,000 ML IV SCH (10:45)
[2019-02-10] MEDS: INSULIN REGULAR 250 UNITS in SODIUM CHLORIDE 0.9% 247.5 ML IV SCH (13:30)
[2019-02-10 14:01] LABS: Basophils # (auto) 0.01 K/uL (0-0.2); Basophils % (auto) 0.1 %; Eosinophils # (auto) 0.04 K/uL (0-0.5); Eosinophils % (auto) 0.5 %; Hematocrit (blood only) 34.5 % (37-47); Hemoglobin 11.5 g/dL (12.0-16.0); Immature Granulocytes # (auto) 0.01 K/uL (0.00-0.02); Immature Granulocytes % (auto) 0.1 %; Lymphocytes # (auto) 1.37 K/uL (1.2-3.4); Lymphocytes % (auto) 16.3 %; Mean Corpuscular Hemoglobin 29.6 pg (25-34); Mean Corpuscular Hgb Conc 33.3 g/dL (32-36); Mean Corpuscular Volume 88.7 fL (80-100); Monocytes # (auto) 0.37 K/uL (0.11-0.59); Monocytes % (auto) 4.4 %; Neutrophils # (auto) 6.61 K/uL (1.4-6.5); Neutrophils % (auto) 78.6 %; Platelet Count 236 K/uL (130-400); RDW Standard Deviation 48.6 fL (36.4-46.3); Red Blood Count 3.89 M/uL (4.2-5.4); White Blood Count 8.41 K/uL (4.8-10.8)
[2019-02-10 14:19] LABS: BUN Creatinine Ratio 13.9 (10-20); Calcium 8.5 mg/dl (8.5-10.1); Creatinine Clr Calc Pharmacy 54.4 ml/min; Est GFR (African American) 73.3; Est GFR (Non-African American) 63.2; Potassium 3.7 mmol/L (3.5-5.1)
[2019-02-10 14:22] LABS: Albumin Globulin Ratio 1.1 (0.9-2); Bilirubin,Total 0.5 mg/dl (0.2-1); Globulin 2.8 gm/dl (2.5-4.0); Total Protein 5.8 gm/dl (6.4-8.2)
--- NOTE | 2019-02-10 15:28 | Hospitalist Progress Note ---
Date of Service February 10, 2019 Assessment & Plan (1) DKA (diabetic ketoacidoses): Diabetic Ketoacidosis wthout Coma -This is a 68-year-old female with a PMH of type 1 diabetes on insulin pump, CAD, history of peptic ulcer disease and other medical problems listed below who presents after waking up with nausea and vomiting this morning and was found to have DKA. -patient was admitted on 02/09/19 -patient has received IV fluids during hospital stay and Insulin drip -as of 02/10/19, patient is being transitioned from hospital IV insulin protocols as per pharmacy glycemic control to her own insulin pump medications -continue to monitor patient as inpatient and monitor labs to check is an anion gap occurs during the transition or immediately after transition completed Lactic Acidosis -admission lactic acid on 02/09/19 as 5.7 -downtrended during this hospital stay with IV fluids and insulin (2) Acute kidney injury: -baseline creatinine is estimated to be around 0.8 to 1 -creatinine on admission was 1.44 -creatinine currently is less than 1 and SHARDA appears resolved (3) Abdominal pain: -as per admission history and physical and records patient has had persistent burning abdominal pain for the past few months, h/o PUD and concern for gastroparesis -patient currently denies abdominal pain symptoms. will defer GI workup and H.pylori testing to outpatient care (4) CAD (coronary artery disease): History of coronary artery disease as per outpatient records -No chest pain symptoms -not on any active cardiac medications -defer to outpatient primary care doctor (5) Anxiety: -Continue Valium as prescribed DVT Ppx: SQ heparin Code status: FULL PCP: Jody Machuca Patient was seen and examined at bedside. Currently with IV insulin drip and also with her insulin pump running. Patient denies chest pain or shortness of breath. Breathing on room air. denies vomiting. no currently abdominal pain. Review of Systems Review of Systems: All systems reviewed & are unremarkable except as noted in HPI & below Physical Exam Constitutional: comfortable Eyes: PERRL, conjunctivae normal, anicteric sclerae EOM intact bilaterally ENMT: external ear and nose normal, oropharynx normal Neck: trachea midline, no thyromegaly normal visual inspection Respiratory: normal respiratory effort, lungs clear to auscultation Cardiovascular: RRR, no murmur, no edema Gastrointestinal (Abdomen): normal bowel sounds, soft, nontender, no hepatosplenomegaly Musculoskeletal: Head/Neck/Chest: normocephalic and head atraumatic Neurologic: PERRL, EOMI, accommodation nl, no face palsy, no dysarthria CN's II-XI intact bilaterally Psychiatric: A+Ox3, euthymic affect Results & Data Vital Signs (Past 12 Hours) Vital Signs Temp Pulse Resp BP Pulse Ox 02/10/19 12:03 36.8 C 72 16 119/72 98 02/10/19 07:11 36.5 C 69 18 102/64 100 02/10/19 04:35 36.8 C 76 20 81/43 L 95 (1) DKA (diabetic ketoacidoses) Diabetes mellitus complication detail: without coma Diabetes mellitus type: other specified (including PARDEEP) Qualified Code(s): E13.10 - Other specified diabetes mellitus with ketoacidosis without coma
[2019-02-10] MEDS: NovoLOG INSULIN PUMP SCH ×2 (19:15→22:27)
[2019-02-10] MEDS: RALOXIFENE HCL 60 MG TAB PO SCH (20:36)
[2019-02-10 20:39] LABS: Albumin Level 2.8 gm/dl (3.4-5.0); Calcium 8.6 mg/dl (8.5-10.1); Creatinine Clr Calc Pharmacy 52.7 ml/min; Est GFR (African American) 70.5; Est GFR (Non-African American) 60.9; Potassium 3.7 mmol/L (3.5-5.1)
[2019-02-10 20:41] LABS: Bilirubin,Total 0.3 mg/dl (0.2-1); Globulin 2.8 gm/dl (2.5-4.0); Total Protein 5.6 gm/dl (6.4-8.2)
[2019-02-10] MEDS: diazePAM 5 MG TABLET PO PRN (20:42)
[2019-02-11] MEDS: HEPARIN SOD 5,000 UNIT/0.5 ML VIAL SQ SCH ×2 (05:20→14:09)
[2019-02-11 06:09] LABS: Albumin Level 2.7 gm/dl (3.4-5.0); BUN Creatinine Ratio 10.9 (10-20); Calcium 8.8 mg/dl (8.5-10.1); Est GFR (African American) 99.5; Est GFR (Non-African American) 85.8; Potassium 3.9 mmol/L (3.5-5.1)
[2019-02-11 06:12] LABS: Albumin Globulin Ratio 1.1 (0.9-2); Bilirubin,Total 0.3 mg/dl (0.2-1); Globulin 2.4 gm/dl (2.5-4.0); Total Protein 5.1 gm/dl (6.4-8.2)
[2019-02-11] MEDS: DICYCLOMINE HCL 10 MG CAP PO SCH (08:15)
[2019-02-11] MEDS: INSULIN ASPART 100 UNITS/ML 3 ML PEN SC SCH ×2 (08:16→11:35)
[2019-02-11] MEDS: HYDROCODONE/ACETAMOPHEN 5/325MG TAB PO PRN ×2 (08:22→13:59)
[2019-02-11] MEDS: diazePAM 5 MG TABLET PO SCH ×2 (08:23→14:00)
--- NOTE | 2019-02-11 08:55 | Hospitalist Progress Note ---
Date of Service February 11, 2019 Assessment & Plan (1) DKA (diabetic ketoacidoses): Diabetic Ketoacidosis wthout Coma -This is a 68-year-old female with a PMH of type 1 diabetes on insulin pump, CAD, history of peptic ulcer disease and other medical problems listed below who presents after waking up with nausea and vomiting this morning and was found to have DKA. -patient was admitted on 02/09/19 -patient has received IV fluids during hospital stay and Insulin drip -as of 02/10/19, patient was being transitioned from hospital IV insulin protocols as per pharmacy glycemic control to her own insulin pump medications 02/11/19 update: Overnight, patient was taken off her insulin pump and then back to continuous IV insulin infusion. Hospitalist consulted with pharmacy glycemic control and returning to plans to transition back to insulin pump alone by later today Lactic Acidosis -admission lactic acid on 02/09/19 as 5.7 -downtrended during this hospital stay with IV fluids and insulin -lactic acid level is 0.9 by 02/11/19 (2) Acute kidney injury: -baseline creatinine is estimated to be around 0.8 to 1 -creatinine on admission was 1.44 -SHARDA had resolved -creatinine currently is under 1 (3) Abdominal pain: -as per admission history and physical and records patient has had persistent burning abdominal pain for the past few months, h/o PUD and concern for gastroparesis -patient currently denies abdominal pain symptoms. will defer GI workup and H.pylori testing to outpatient care (4) CAD (coronary artery disease): History of coronary artery disease as per outpatient records -No chest pain symptoms -not on any active cardiac medications -defer to outpatient primary care doctor (5) Anxiety: -Continue Valium as prescribed DVT Ppx: SQ heparin Code status: FULL PCP: Jody Machuca Overnight, patient was taken off her insulin pump and then back to continuous IV insulin infusion. Patient has expressed disappointment. She feels that she was not given sufficient time on her insulin pump to demonstrate good glycemic control. Patient otherwise ambulatory. No physical distress. No abdomen pain. No vomiting. Able to eat her diet. breathing on room air. no shortness of breath Review of Systems Review of Systems: All systems reviewed & are unremarkable except as noted in HPI & below Physical Exam Constitutional: comfortable Eyes: PERRL, conjunctivae normal, anicteric sclerae EOM intact bilaterally ENMT: external ear and nose normal, oropharynx normal Neck: trachea midline, no thyromegaly normal visual inspection Respiratory: normal respiratory effort, lungs clear to auscultation Cardiovascular: RRR, no murmur, no edema Gastrointestinal (Abdomen): normal bowel sounds, soft, nontender, no hepatosplenomegaly Musculoskeletal: Head/Neck/Chest: normocephalic and head atraumatic Neurologic: PERRL, EOMI, accommodation nl, no face palsy, no dysarthria CN's II-XI intact bilaterally Psychiatric: A+Ox3, euthymic affect Results & Data Vital Signs (Past 12 Hours) Vital Signs Temp Pulse Resp BP Pulse Ox 02/11/19 07:46 36.6 C 79 18 113/53 L 99 02/11/19 04:06 36.4 C L 69 18 129/61 96 02/11/19 00:03 36.6 C 72 17 121/66 96 (1) DKA (diabetic ketoacidoses) Diabetes mellitus complication detail: without coma Diabetes mellitus type: other specified (including PARDEEP) Qualified Code(s): E13.10 - Other specified diabetes mellitus with ketoacidosis without coma
[2019-02-11] MEDS ORDERED: INSULIN ASPART 100 UNITS/ML VIAL SC PRN (09:10)
[2019-02-11] MEDS ORDERED: ALUMINUM/MAGNESIUM SUSP 30 ML UDC PO PRN (09:58)
--- NOTE | 2019-02-11 10:47 | Pharmacy Report ---
Pharmacy Glycemic Short Note 2 - Date of Service February 11, 2019 - Glycemic Short BSG Results (Last 24 hours): 02/10/19 02/10/19 02/10/19 11:59 13:13 13:54 Glucose 201 H POC Glucose 119 H 210 H 02/10/19 02/10/19 02/10/19 14:20 15:15 16:44 Glucose POC Glucose 192 H 179 H 197 H 02/10/19 02/10/19 02/10/19 17:46 18:35 19:27 Glucose POC Glucose 189 H 166 H 167 H 02/10/19 02/10/19 02/10/19 20:15 20:26 21:44 Glucose 233 H POC Glucose 243 H 284 H 02/10/19 02/11/19 02/11/19 22:34 00:01 02:05 Glucose POC Glucose 266 H 160 H 143 H 02/11/19 02/11/19 02/11/19 03:07 04:02 04:57 Glucose POC Glucose 128 H 97 137 H 02/11/19 02/11/19 02/11/19 05:22 06:17 07:07 Glucose 170 H POC Glucose 227 H 259 H 02/11/19 02/11/19 02/11/19 08:10 09:11 09:29 Glucose POC Glucose 261 H 259 H 218 H OUTPATIENT ANTIDIABETIC REGIMEN: * Novolog insulin pump: * Patient has been using a pump and CGM for ~4 yrs now * Basal rates: provide 10 units/day (previously 12.5 units/day) * Carb coverage: 1 unit per 20gm CHO's w/ breakfast; 1 unit per 15gm CHOs w/ lunch and dinner * Correction factor: 60mg/dL/unit * Goal range: 110-150mg/dL * A1c = 7.7% 01/21/19 ASSESSMENT: * Type 1 diabetic admitted 02/09 for DKA * Patient was treated with IV fluid resuscitation + IV insulin infusion. * DKA resolved yesterday and patient was transitioned back to her insulin pump with her basal rate increased to ~16 units/day * Last evening however, pt's BSGs did climb as high as 270's and patient was transitioned back to IV insulin drip due to concerns her pump was not adequately controlling her BSGs and she might be progressing towards DKA again. IV insulin drip running at ~2 units/hr this AM and BSGs in low-mid 200's. PRP did not show evidence of ketoacidosis. * Per discussion with Hospitalist, will resume pt's insulin pump this AM to confirm the pump is working appropriately and also confirm the patient can adequately control her DM before discharge. * Will resume insulin pump this AM, however increase her basal rate given the IV insulin requirements and climbing BSG observed yesterday. Initial basal rate will be 0.825units/hr x 24 hrs (~19.8 units/day). Patient demonstrates ability to adjust her basal rates if needed. She will likely require a higher basal rate today. * Frequent BSG monitoring will be diez to managing this patient. Once her BSGs begin to trend down to goal, would then taper basal rate towards her outpt basal rate. PLAN FOR INPATIENT GLYCEMIC CONTROL: * Continue IV insulin drip per protocol, however DC drip 2 hrs after insulin pump resumed * Resume Novolog insulin pump this AM with increased basal rate (approx 2x home rate). Check BSGs Q 4 hrs once off the insulin drip. * If BSGs climb while on insulin pump, trouble shoot pump site 1st to confirm that the site is not bad. If there is a possibility the site is bad, give a dose of Novolog SQ and begin a new pump site. * Once BSGs trend down to goal range, taper basal rates down by 25%. If BSGs drop below goal range, decrease basal rate back to out-pt rate. PLAN FOR DISCHARGE: * to be determined.
[2019-02-11] MEDS: NovoLOG INSULIN PUMP SCH ×2 (12:56→16:20)
--- NOTE | 2019-02-11 15:26 | Discharge Summary ---
Date of Service February 11, 2019 Admission HPI Per Admitting Provider This is a 68-year-old female with a PMH of type 1 diabetes on insulin pump, CAD, history of peptic ulcer disease and other medical problems listed below who presents after waking up with nausea and vomiting this morning. Had 4 bouts of bilious emesis today as well as having diarrhea. Also experiencing headache, blurred vision, increased thirst and some confusion. Has been using insulin pump as instructed and follows a strict low diet. Has had ongoing persistent burning abdominal pain for the past few months and was evaluated by GI service for this recently and was instructed to submit a stool sample for H pylori and then start a PPI. Scheduled for diagnostic EGD at the end of February. Patient has not yet submitted stool sample, so has yet to start protonix. Denies any fever, chills, lightheadedness, chest pain, palpitations, shortness of breath, dysuria or constipation. Of note, patient was recently admitted to the ICU at the beginning of November 2018 for persistent hypotension in the setting of sepsis, DKA and SHARDA. Was evaluated by infectious disease who felt that patient had clinical picture of sepsis with elevated procalcitonin, lactic acid, and white count, clinically improved with imipenem, but no clear-cut source of infection. Also evaluated by general surgery for initial concern for ischemic bowel but abdominal pain but exam was benign pain eventually subsided. Followed up with endocrinology following recent hospitalization and basal insulin rates were increased and patient was instructed to remain better hydrated. Admission Exam Per Admitting Provider General Appearance: WD/WN, vitals as above, appears acutely ill, cooperative with exam Head: normocephalic, atraumatic Eyes: normal inspection, PERRL, conjunctivae normal, anicteric sclerae ENT: external ear and nose normal, dry mucous membranes of oropharynx Neck: trachea midline, no thyromegaly normal visual inspection Respiratory: normal respiratory effort, lungs clear to auscultation, no wheeze, rales, rhonchi. Normal insp/exp effort, no accessory muscle use Cardiovascular: tachycardic, regular rhythm, no murmur, normal peripheral pulses. Vessels: no JVD or carotid bruit Chest: normal inspection of chest Abdomen/GI: normal bowel sounds, soft, nontender, no hepatosplenomegaly Extremities/Musculoskelatal: no cyanosis or clubbing, extremities motor strength 5/5 Neurologic: PERRL, EOMI, accommodation nl, no face palsy, no dysarthria CN's II-XI intact bilaterally and moves all extremities Psychiatric: A+Ox3, + anxious Skin: no rashes, normal color, warm/dry Principal Diagnosis DKA (diabetic ketoacidoses), Acute kidney injury (resolved), Lactic acidosis (resolved) Discharge Exam Constitutional comfortable Eyes PERRL, conjunctivae normal, anicteric sclerae EOM intact bilaterally ENMT external ear and nose normal, oropharynx normal Neck trachea midline, no thyromegaly normal visual inspection Respiratory normal respiratory effort, lungs clear to auscultation Cardiovascular RRR, no murmur, no edema Gastrointestinal (Abdomen) normal bowel sounds, soft, nontender, no hepatosplenomegaly Musculoskeletal Head/Neck/Chest: normocephalic and head atraumatic Neurologic PERRL, EOMI, accommodation nl, no face palsy, no dysarthria CN's II-XI intact bilaterally Psychiatric A+Ox3, euthymic affect Discharge Data Allergies Allergy/AdvReac Type Severity Reaction Status Date / Time Penicillins Allergy Unknown . Verified 02/09/19 12:52 promethazine Allergy Unknown . Verified 02/09/19 12:52 Sulfa (Sulfonamide AdvReac Unknown RASH,VOMITI Verified 02/09/19 12:52 Antibiotics) NG Consultations 02/09/19 12:41 ED Decision to Admit Stat Hospital Course (1) DKA (diabetic ketoacidoses): Diabetic Ketoacidosis wthout Coma -This is a 68-year-old female with a PMH of type 1 diabetes on insulin pump, CAD, history of peptic ulcer disease and other medical problems listed below who presents after waking up with nausea and vomiting this morning and was found to have DKA. -patient was admitted on 02/09/19 -patient has received IV fluids during hospital stay and Insulin drip -as of 02/10/19, patient was being transitioned from hospital IV insulin protocols as per pharmacy glycemic control to her own insulin pump medications 02/11/19 update: Overnight, patient was taken off her insulin pump and then back to continuous IV insulin infusion. Hospitalist consulted with pharmacy glycemic control and returning to plans to transition back to insulin pump aloneater overlapping therapy of IV insulin into peripheral IV and patient's insulin pump infusions; -patient has been transitioned to her own insulin pump infusion on 02/11/19; Discharge to home Lactic Acidosis -admission lactic acid on 02/09/19 as 5.7 -downtrended during this hospital stay with IV fluids and insulin -lactic acid level is 0.9 by 02/11/19 (2) Acute kidney injury: -baseline creatinine is estimated to be around 0.8 to 1 -creatinine on admission was 1.44 -SHARDA had resolved -creatinine currently is under 1 (3) Abdominal pain: -as per admission history and physical and records patient has had persistent burning abdominal pain for the past few months, h/o PUD and concern for gastroparesis -patient currently denies abdominal pain symptoms. will defer GI workup and H.pylori testing to outpatient care (4) CAD (coronary artery disease): History of coronary artery disease as per outpatient records -No chest pain symptoms -not on any active cardiac medications -defer to outpatient primary care doctor (5) Anxiety: -Continue Valium as prescribed DVT Ppx: SQ heparin Code status: FULL PCP: Jody Total Time Total Time Spent Total Time Spent (In Minutes): 40 minutes Total Time Includes: Examination of the Patient, Discharge Planning, Medication Reconciliation and Communication With Other Providers Discharge Plan Discharge Items Patient Disposition: Home - Self-Care Reason For Visit: DKA,SHARDA Discharge Diagnosis: DKA (diabetic ketoacidoses), Acute kidney injury (resolved), Lactic acidosis (resolved) Condition on Discharge: Good Activity: Resume your previous activity Non-emergency contact: Primary Care Provider Call non-emergency contact if: you have any medication questions Follow-up/Referrals: Hawa Vera DO [Primary Care Provider] - Diet: Carb Consistent or DM2 Addtl Attending Provider Instructions: -This is a 68-year-old female with a PMH of type 1 diabetes on insulin pump, CAD, history of peptic ulcer disease and other medical problems listed below who presents after waking up with nausea and vomiting this morning and was found to have DKA. -patient was admitted on 02/09/19 -patient has received IV fluids during hospital stay and Insulin drip -patient has been transitioned to her own insulin pump infusion on 02/11/19 Discharge to home Upcoming scheduled [facility] appointments Date & Time 02/19/2019 3:30 PM Provider Nurse [place] [facility], [place] 02/28/2019 11:10 AM Provider DO Daryn Cuadra [facility] (-as per admission history and physical and records patient has had persistent burning abdominal pain for the past few months, h/o PUD and concern for gastroparesis -patient currently denies abdominal pain symptoms. will defer GI workup and H.pylori testing to outpatient care) Pending Studies at Discharge: No Stand-Alone Forms: [facility], Smoking Cessation Medications and DC Order Prescriptions: Continued dicyclomine 10 mg capsule 10 mg PO DAILY RF: 0 raloxifene [Evista] 60 mg tablet 60 mg PO DAILY RF: 0 hydrocodone-acetaminophen [Vicodin] 5-300 mg tablet 0.5 tab PO BID PRN (Reason: Pain) RF: 0 diazepam 5 mg tablet 2.5 mg PO BID RF: 0 omega-3 fatty acids 1,000 mg capsule 1,000 mg PO DAILY RF: 0 cyanocobalamin (vitamin B-12) 1,000 mcg/mL solution 1,000 mcg SQ MONTHLY RF: 0 Novolog U-100 Insulin aspart 100 unit/mL solution See Rx Instructions SQ .COMPLEX RF: 0 diclofenac sodium 50 mg Tablet,Delayed Release (Dr/Ec) 50 mg PO UD PRN (Reason: Pain) RF: 0 carisoprodol [Soma] 250 mg Tablet 250 mg PO UD PRN (Reason: MUSCLE SPASMS) RF: 0 diazepam 5 mg Tablet 5 mg PO HS PRN (Reason: Anxiety) RF: 0 Antacid Anti-Gas (ca carb-sim) 1,000-60 mg Tablet,Chewable ACHS RF: 0 Discharge Orders: Discharge Order (Routine); Ordered 02/11/19 Ordered By: Eric Camacho Admission Data Admit Date/Time: 02/09/19 14:38 Attending Provider: Eric Camacho Admit Provider: Tomasa Correa Primary Care Provider: Hawa Vera Other Providers: Tomasa Correa
[2019-02-11] MEDS ORDERED: ALUMINUM/MAGNESIUM SUSP 30 ML UDC PO SCH (21:00)
[2019-02-12] MEDS ORDERED: NovoLOG INSULIN PUMP SCH
== END 2019-02-11 17:30 | disposition home or self-care (01) | DRG 638 ==
LOC: ED 11:39 → 2S 14:38 → SUATTDRO 14:38 → 2S 15:24

== ENCOUNTER 2019-05-30 09:55 | Observation (INO) ==
--- NOTE | 2019-05-13 12:23 | Anesthesiology Consultation ---
Date of Service May 13, 2019 Assessment & Plan (1) Encounter for pre-operative examination: Chart Review Chart Review: Patient NOT seen in Pre Admission Testing Consults Requested PAT consult placed - patient with history of TMJ dysfunction with "joint replacements". Per patient report, very limited mouth opening. In addition, patient with admission in January for DKA with no more recent labs. Patient to be evaluated in PAT for possible difficult airway and to determine whether diabetes is under tight enough control to qualify for surgery in the surgical center. History Surgery Operation Date: 05/30/19 10:40 Proposed Procedures p Right Shoulder Arthroscopy, Extensive Debridement, Lysis Of Adhesions, Man ipulation Under Anesthesia(Right) - Canelo Ferrera, Height/Weight Height: 5 ft 6 in Weight: 60.328 kg Allergies Allergy/AdvReac Type Severity Reaction Status Date / Time Penicillins Allergy Unknown Rash Verified 05/10/19 10:10 ketamine Allergy Hallucinati Verified 05/10/19 10:10 ng Sulfa (Sulfonamide AdvReac Unknown RASH,VOMITI Verified 05/10/19 10:10 Antibiotics) NG Medications Home Medications Medication Instructions Recorded Confirmed Last Taken cyanocobalamin (vitamin B-12) 1,000 mcg SQ MONTHLY 11/05/18 05/10/19 Unknown 1,000 mcg/mL injection solution diazepam 5 mg tablet 2.5 mg PO BID 11/05/18 05/10/19 Unknown dicyclomine 10 mg capsule 10 mg PO DAILY PRN cap 11/05/18 05/10/19 Unknown insulin aspart U-100 100 unit/mL 1 unit SQ DIRECTED 11/05/18 05/10/19 Unknown subcutaneous solution omega-3 fatty acids 1,000 mg 1,000 mg PO PM 11/05/18 05/10/19 Unknown capsule raloxifene 60 mg tablet 60 mg PO PM 11/05/18 05/10/19 Unknown carisoprodol [Soma] 250 mg PO DIRECTED PRN 11/25/18 05/10/19 Unknown diazepam 5 mg PO HS PRN 02/09/19 05/10/19 Unknown calcium carbonate 1,000 1 tab PO QID PRN 02/19/19 05/10/19 Unknown mg-simethicone 60 mg chewable tablet hydrocodone 5 mg-acetaminophen 325 0.5 tab PO BID PRN tab 02/19/19 05/10/19 Unknown mg tablet atorvastatin 10 mg tablet 10 mg PO WK 05/06/19 05/10/19 Unknown pantoprazole 40 mg tablet,delayed 40 mg PO 3XWK 05/06/19 05/10/19 Unknown release diclofenac sodium 75 mg PO BID PRN 05/10/19 05/10/19 Unknown Past Medical History Medical History Anxiety (Chronic) CAD (coronary artery disease) GERD (gastroesophageal reflux disease) Nausea and vomiting after administration of anesthetic agent Osteoporosis Patient is Orthodox (Chronic) Peptic ulcer disease HX Pernicious anemia (Chronic) Slow to wake up after anesthesia Type 1 diabetes (Chronic) pt reports atorvastatin is for this > cholesterol is wnl Past Family History Family History Mother Diabetes Sister Diabetes Other Liver cancer Past Surgical History Surgical History H/O: hysterectomy History of appendectomy History of dilatation and curettage Hx of cholecystectomy 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
--- NOTE | 2019-05-16 15:06 | PAT Medication Instructions ---
Medication Instructions Date of Service May 16, 2019 Home Medications cyanocobalamin (vitamin B-12) 1,000 mcg/mL injection solution 1,000 mcg SQ MONTHLY diazepam 5 mg tablet 2.5 mg PO BID dicyclomine 10 mg capsule 10 mg PO DAILY PRN insulin aspart U-100 100 unit/mL subcutaneous solution 1 unit SQ DIRECTED omega-3 fatty acids 1,000 mg capsule 1,000 mg PO PM raloxifene 60 mg tablet 60 mg PO PM carisoprodol [Soma] 250 mg PO DIRECTED PRN diazepam 5 mg PO HS PRN calcium carbonate 1,000 mg-simethicone 60 mg chewable tablet 1 tab PO QID PRN hydrocodone 5 mg-acetaminophen 325 mg tablet 0.5 tab PO BID PRN atorvastatin 10 mg tablet 10 mg PO WK pantoprazole 40 mg tablet,delayed release 40 mg PO 3XWK diclofenac sodium 75 mg PO BID PRN Continue as directed atorvastatin 10 mg tablet 10 mg PO WK pantoprazole 40 mg tablet,delayed release 40 mg PO 3XWK ASK your surgeon for instructions diclofenac sodium 75 mg PO BID PRN ASK your prescriber and surgeon raloxifene 60 mg tablet 60 mg PO PM STOP taking 2 weeks before surgery (or as soon as possible if surgery is within 2 weeks) omega-3 fatty acids 1,000 mg capsule 1,000 mg PO PM DO NOT take the morning of surgery cyanocobalamin (vitamin B-12) 1,000 mcg/mL injection solution 1,000 mcg SQ MONTHLY dicyclomine 10 mg capsule 10 mg PO DAILY PRN carisoprodol [Soma] 250 mg PO DIRECTED PRN calcium carbonate 1,000 mg-simethicone 60 mg chewable tablet 1 tab PO QID PRN Take morning of surgery With a small sip of water, OTHERWISE NOTHING TO EAT OR DRINK AFTER MIDNIGHT: diazepam 5 mg tablet 2.5 mg PO BID hydrocodone 5 mg-acetaminophen 325 mg tablet 0.5 tab PO BID PRN (okay to take up to 4 hours prior to surgery if needed) Take evening before surgery diazepam 5 mg tablet 2.5 mg PO BID dicyclomine 10 mg capsule 10 mg PO DAILY PRN (if needed) carisoprodol [Soma] 250 mg PO DIRECTED PRN (if needed) diazepam 5 mg PO HS PRN (if needed) calcium carbonate 1,000 mg-simethicone 60 mg chewable tablet 1 tab PO QID PRN (if needed) hydrocodone 5 mg-acetaminophen 325 mg tablet 0.5 tab PO BID PRN (if needed) Insulin Dependent Diabetic Patients *For insulin pump, set pump to basal setting and do not bolus morning of surgery* Other Notes If you have any questions please call us at [phone] or [phone] or [phone] or [phone]
--- NOTE | 2019-05-20 13:49 | Anesthesiology Consultation ---
Date of Service May 20, 2019 Assessment & Plan (1) Encounter for pre-operative examination: Case discussed with Dr. Early. Due to patient's potentially difficult airway, Type I DM and presumed CAD, she is not an acceptable surgery center candidate, but OK for main OR. Surgeon's office made aware that case will need to be R/S to Main OR. They will contact pt to R/s. CHECK BSG AM DOS. Chart Review Chart Review: Acceptable Risk for Surgery (FOR MAIN OR) and Patient seen in Pre Admission Testing Teaching & Discussion Instructed NPO after midnight before surgery, except medications with 15 cc of water. Medication instructions provided according to the PAT guidelines. History Surgery Operation Date: 05/30/19 10:40 Proposed Procedures p Right Shoulder Arthroscopy, Extensive Debridement, Lysis Of Adhesions, Manipulation Under Anesthesia(Right) - Canelo Ferrera, Height/Weight Height: 5 ft 6 in Weight: 60.2 kg Allergies Allergy/AdvReac Type Severity Reaction Status Date / Time Penicillins Allergy Unknown Rash Verified 05/10/19 10:10 ketamine Allergy Hallucinati Verified 05/10/19 10:10 ng Sulfa (Sulfonamide AdvReac Unknown RASH,VOMITI Verified 05/10/19 10:10 Antibiotics) NG Medications Home Medications Medication Instructions Recorded Confirmed Last Taken cyanocobalamin (vitamin B-12) 1,000 mcg SQ MONTHLY 11/05/18 05/10/19 Unknown 1,000 mcg/mL injection solution diazepam 5 mg tablet 2.5 mg PO BID 11/05/18 05/10/19 Unknown dicyclomine 10 mg capsule 10 mg PO DAILY PRN cap 11/05/18 05/10/19 Unknown insulin aspart U-100 100 unit/mL 1 unit SQ DIRECTED 11/05/18 05/10/19 Unknown subcutaneous solution omega-3 fatty acids 1,000 mg 1,000 mg PO PM 11/05/18 05/10/19 Unknown capsule raloxifene 60 mg tablet 60 mg PO PM 11/05/18 05/10/19 Unknown carisoprodol [Soma] 250 mg PO DIRECTED PRN 11/25/18 05/10/19 Unknown diazepam 5 mg PO HS PRN 02/09/19 05/10/19 Unknown calcium carbonate 1,000 1 tab PO QID PRN 11/26/19 02/14/20 Unknown mg-simethicone 60 mg chewable tablet hydrocodone 5 mg-acetaminophen 325 0.5 tab PO BID PRN tab 02/19/19 05/10/19 Unknown mg tablet atorvastatin 10 mg tablet 10 mg PO WK 05/06/19 05/10/19 Unknown pantoprazole 40 mg tablet,delayed 40 mg PO 3XWK 05/06/19 05/10/19 Unknown release diclofenac sodium 75 mg PO BID PRN 05/10/19 05/10/19 Unknown Past Medical History Medical History Anxiety (Chronic) CAD (coronary artery disease) /Septal infarct noted on EKG and HK on echo 11/2018 GERD (gastroesophageal reflux disease) Hoarseness Pt reports 2/2 repeated intubations over 10 years period in which she had 8 jaw surgeries (states she kept rejecting the hardware they implanted) Nausea and vomiting after administration of anesthetic agent Osteoporosis Patient is Hindu (Chronic) Peptic ulcer disease HX Pernicious anemia (Chronic) Slow to wake up after anesthesia Type 1 diabetes (Chronic) pt reports atorvastatin is for this > cholesterol is wnl Exercise / Class Metabolic Activity II 4-5 Yardwork/Stairs/Walk up hill (Denies CP or SOB with 1 FOS) Past Family History Family History Mother Diabetes Sister Diabetes Other Liver cancer Past Surgical History Surgical History H/O: hysterectomy History of appendectomy History of dilatation and curettage Hx of cholecystectomy 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 Physical Exam Vital Signs BP: 116/72 P: 88bpm SPO2: 98% RA T: 98.3 F R: 18 ENMT Mouth: + small oral opening (2 fingerbreadths (~1 3/4 inches)); no dental restorations, no chipped teeth and no loose teeth Thyromental Distance: < 3.5 Finger Breadths (3) Mallampati Class: II Neck normal visual inspection; neck extension not limited Respiratory normal respiratory effort Auscultation: lungs clear to auscultation bilaterally Cardiovascular Rate/Rhythm: regular rate and regular rhythm Heart Sounds: no murmur Extremities: no edema Testing Laboratory Results 05/20/19 14:12 05/20/19 14:12 *surgeon's office flagged re: elevated glucose. A1C was not performed at [facility] as pt reported her insurance will only cover A1C testing every 4 months and she was worried it would not be covered. 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 No significant change from 11/25/2018 EKG. Chest X-Ray Date: 11/25/18 Findings: + NAD Echocardiogram Date: 11/27/18 EF: 50-55% LV Function: low normal mild to moderate hypokinesis of basal inferior wall, otherwise normal wall motion, grade 1 DD, no significant valve disease, unchanged from 11/25/2018
[2019-05-20 14:35] LABS: Hematocrit (blood only) 41.4 % (37-47); Hemoglobin 13.6 g/dL (12.0-16.0); Mean Corpuscular Hemoglobin 29.2 pg (25-34); Mean Corpuscular Hgb Conc 32.9 g/dL (32-36); Platelet Count 284 K/uL (130-400); RDW Coefficient of Variation 14.3 % (11.5-14.5); RDW Standard Deviation 46.6 fL (36.4-46.3); Red Blood Count 4.65 M/uL (4.2-5.4)
[2019-05-20 16:09] LABS: BUN Creatinine Ratio 24.6 (10-20); Calcium 9.4 mg/dl (8.5-10.1); Creatinine Clr Calc Pharmacy 48.9 ml/min; Est GFR (African American) 63.4; Est GFR (Non-African American) 54.7; Potassium 4.2 mmol/L (3.5-5.1)
--- NOTE | 2019-05-29 07:26 | History & Physical Report ---
Date of Service May 29, 2019 Assessment & Plan (1) Adhesive capsulitis of shoulder: We will proceed with a right shoulder arthroscopy to include a capsular release. Postoperatively she will be placed in a sling and discharged home on oral pain medications. She will follow-up with orthopedics in 2 weeks. Present on Admission?: Yes History of Present Illness Chief Complaint: Adhesive capsulitis of the right shoulder Primary Care Provider: Hawa Vera DO Emili is a pleasant 68-year-old female who is been dealing with an 8-month history of increasing pain and tightness of the right shoulder. She initially fell out of a tree while looking at a birds nest in August. That is when she noticed her shoulder pain starting. It has become very tight and painful over the past 8 months. MRI shows some mild to moderate arthritis but no evidence of rotator cuff tear. Clinically she examined like an adhesive capsulitis of the shoulder. After failing months of conservative treatment, she has elected to proceed with a right shoulder arthroscopy. Allergies Allergy/AdvReac Type Severity Reaction Status Date / Time Penicillins Allergy Unknown Rash Verified 05/10/19 10:10 ketamine Allergy Hallucinati Verified 05/10/19 10:10 ng Sulfa (Sulfonamide AdvReac Unknown RASH,VOMITI Verified 05/10/19 10:10 Antibiotics) NG Home Medications Home Medications Medication Instructions Recorded Confirmed Type cyanocobalamin (vitamin B-12) 1,000 mcg SQ MONTHLY 11/05/18 05/10/19 History 1,000 mcg/mL injection solution diazepam 5 mg tablet 2.5 mg PO BID 11/05/18 05/10/19 History dicyclomine 10 mg capsule 10 mg PO DAILY PRN cap 11/05/18 05/10/19 History insulin aspart U-100 100 unit/mL 1 unit SQ DIRECTED 11/05/18 05/10/19 History subcutaneous solution omega-3 fatty acids 1,000 mg 1,000 mg PO PM 11/05/18 05/10/19 History capsule raloxifene 60 mg tablet 60 mg PO PM 11/05/18 05/10/19 History carisoprodol [Soma] 250 mg PO DIRECTED PRN 11/25/18 05/10/19 History diazepam 5 mg PO HS PRN 02/09/19 05/10/19 History calcium carbonate 1,000 1 tab PO QID PRN 02/19/19 05/10/19 History mg-simethicone 60 mg chewable tablet hydrocodone 5 mg-acetaminophen 325 0.5 tab PO BID PRN tab 02/19/19 05/10/19 History mg tablet atorvastatin 10 mg tablet 10 mg PO WK 05/06/19 05/10/19 History pantoprazole 40 mg tablet,delayed 40 mg PO 3XWK 05/06/19 05/10/19 History release diclofenac sodium 75 mg PO BID PRN 05/10/19 05/10/19 History Past Med/Surg History Medical History Anxiety (Chronic) CAD (coronary artery disease) /Septal infarct noted on EKG and HK on echo 11/2018 GERD (gastroesophageal reflux disease) Hoarseness Pt reports 2/2 repeated intubations over 10 years period in which she had 8 jaw surgeries (states she kept rejecting the hardware they implanted) Osteoporosis Patient is Roman Catholic (Chronic) Peptic ulcer disease HX Pernicious anemia (Chronic) Type 1 diabetes (Chronic) pt reports atorvastatin is for this > cholesterol is wnl Surgical History H/O: hysterectomy History of appendectomy History of dilatation and curettage Hx of cholecystectomy Nausea and vomiting after administration of anesthetic agent Slow to wake up after anesthesia 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" > Pt wants to make aware jaw doesn't open very far at all Family History Mother Diabetes Sister Diabetes Other Liver cancer Social History Preferred Language: Peruvian Communication Ability: Effective Promos Executive Producer Required: No Beliefs That Will Affect Care: Alevism Alevism Beliefs: JOANNE LIU> DOES NOT RECEIVE BLOOD PRODUCTS Current Living Situation: Alone Current Living Situation Comment: IN APARTMENT BUT IS ATTACHED TO SISTERS HOUSE Other Information That Helps Us Care for You: No Feels Safe at Home: Yes Safety Concerns: Feels Safe At This Time Smoking Status: Never smoker Do You Dip or Chew Tobacco: No ; Second Hand Exposure: Yes (FATHER SMOKED) ; Tobacco Cessation Education Requested by Patient: No Hx Alcohol Use: No Hx Substance Use: No Review of Systems All systems reviewed & are unremarkable except as noted in HPI & below Physical Exam Constitutional: WD/WN, vitals as above Eyes: PERRL, conjunctivae normal, anicteric sclerae ENMT: external ear and nose normal, oropharynx normal Neck: trachea midline, no thyromegaly Respiratory: normal respiratory effort Cardiovascular: RRR, no murmur, no edema Gastrointestinal (Abdomen): normal bowel sounds, soft, nontender, no hepatosplenomegaly Musculoskeletal: On physical examination of the right shoulder, she has about 90 degrees of forward elevation 90 degrees of abduction. While lying supine she has 90 degrees of abduction but only 30 degrees of external rotation and 10 degrees of internal rotation. Psychiatric: A+Ox3, euthymic affect Results & Data Diagnostic Findings MRI of the right shoulder showed mild to moderate arthritis. There was some thickening of the capsule which can be diagnostic for adhesive capsulitis. I do not see any significant rotator cuff tears.
[~2019-05-30 09:55] MED LIST changes: +CLINDAMYCIN PHOS 300 MG/2 ML VIAL IV SCH; -CYAN10002 IM; -DIAZ-165 PO; -DICL-201 PO; -DICY10CA12 PO; -EVS60 PO; -HYDR-5688 PO; -INSPMPHMLG; +LACTATED RINGER'S 1,000 ML IV SCH; -OMEG10007 PO
[2019-05-30] MEDS ORDERED: ONDANSETRON INJ 2 MG/ML 2 ML VIAL ONE (10:14)
[2019-05-30] MEDS ORDERED: PROPOFOL IV EMULSION 10 MG/ML 20 ML VIAL IV ONE (10:14)
[2019-05-30] MEDS ORDERED: LIDOCAINE HCL 2% 2 ML VIAL/AMP(20MG/ML) INFIL ONE (10:14)
[2019-05-30] MEDS ORDERED: DEXAMETHASONE SOD INJ 4 MG/ML VIAL ONE (10:14)
[2019-05-30] MEDS ORDERED: MIDAZOLAM HCL 1 MG/ML 2ML VIAL ONE (10:15)
[2019-05-30] MEDS ORDERED: fentaNYL citrate 100 MCG/2 ML VIAL ONE ×2 (10:15→13:49)
[2019-05-30] MEDS ORDERED: CLINDAMYCIN 600 MG/54 ML D5W IV ONE (10:25)
[2019-05-30] MEDS ORDERED: BUPIVACAINE 0.5 % 5 MG/1 ML PF 10ML VIAL ONE (10:47)
--- NOTE | 2019-05-30 12:17 | History & Physical Bridge Note ---
Date of Service May 30, 2019 History & Physical Bridge Note I have examined the patient, reviewed the History & Physical and in the interval since the performance of the History & Physical I have noted the following changes of clinical significance: no changes noted
[2019-05-30] MEDS ORDERED: EPINEPHrine INJ 1 MG/ML AMP ONE (12:42)
[2019-05-30] MEDS ORDERED: BUPIVACAINE 0.5 % 5 MG/1 ML MPF 30ML VIAL ONE (12:43)
[2019-05-30] MEDS ORDERED: KETAMINE HCL INJ 50 MG/ML 10 ML VIAL ONE (13:25)
[2019-05-30] MEDS ORDERED: TRIAMCINOLONE ACET 40 MG/ML VIAL ONE ×2 (13:48→13:49)
[2019-05-30] MEDS ORDERED: HYDROmorphone INJ 2 MG/ML SYR/VIAL ONE ×2 (13:54→14:04)
--- NOTE | 2019-05-30 13:55 | Operative Report ---
PG Post Operative Report Pre & Post Diagnosis Operation Date: 05/30/19 10:40 <No data on this case meets the specified criteria> Operation Date: 05/30/19 12:30 Pre-Op Diagnosis: Right Shoulder Adhesive Capsulitis Post-Op Diagnosis: Right Shoulder Adhesive Capsulitis I identified the patient and participated in the time-out.: Yes Procedure Operation Date: 05/30/19 10:40 <No data on this case meets the specified criteria> Operation Date: 05/30/19 12:30 Actual Procedures p Right Shoulder Arthroscopy, Extensive Debridement, Lysis of Adhesions, Manipulation Under Anesthesia(Right) - Canelo Ferrera, Surgeon Canelo Ferrera, Regrader Canelo Jerome PAC Estimated Blood Loss 5 Findings Consistent with Post-Op Diagnosis Specimens None Complications none Disposition Disposition: Recovery Room Indications Carley is a pleasant 68-year-old female who has been dealing with chronic right shoulder pain and tightness. Is been going on for 8 months. She fell of the tree in August when it started. MRI and clinical examination were diagnostic for adhesive capsulitis of the right shoulder. After failing conservative treatment, she elected proceed with a right shoulder arthroscopy. Description of Procedure Carley arrived at [facility] for the above procedure. She was seen in the preoperative holding area and the operative extremity was identified and signed. She was given a preoperative antibiotic and an interscalene nerve block. She was taken back to the operating room and laid on the table in supine position. She was put under anesthesia. She was put into the beachchair position. The operative shoulder was prepped and draped in sterile fashion. A timeout was done. The patient and the operative extremity was properly identified. On preoperative physical examination there was about 80 degrees of abduction and 20 degrees of external rotation. A gentle manipulation was done under anesthesia to facilitate insertion of the arthroscope. The scope was then placed into the posterior portal. Diagnostic arthroscopy showed no cartilage damage to the humeral head or the glenoid. There was significant fraying of the anterior labrum and fraying of the torn capsule from the manipulation. The biceps tendon was intact. The rotator cuff is intact. An anterior portal was made. A shaver was used to start a debridement of the intra-articular structures. The torn capsular tissue was debrided back to stable margins. The labrum was debrided back to stable margins. An ablator was then used to do a lysis of adhesions. All adhesions were released from the undersurface of the coracoid out to the biceps kary mechanism. The rotator interval was completely opened up. The middle and anterior inferior glenohumeral ligaments were both released. Care was taken not to disrupt the subscapularis or the axillary nerve. A shaver was then used to do a continue debridement. Synovial tissue and loose capsular tissue was removed from the superior, middle and inferior ligamentous structures. Hemostasis was obtained. Arthroscopic instruments were removed and an manipulation was done under anesthesia. The s cope was placed back into the glenohumeral joint. Hemostasis was once again obtained. A spinal needle was placed. Arthroscopic instruments were removed from the shoulder. Portal sites were closed with 3-0 nylon. The shoulder was then injected with 80 mg of Kenalog and 5 cc of Marcaine. She was then placed in a soft dressing and a regular arm sling. She was transferred to a [facility] and taken to the postanesthesia care unit in stable condition. She tolerated the procedure well. Canelo Jerome PA-C, was present for the entire procedure. He was critical for patient positioning, prepping, draping, retraction exposure, wound closure and application of sterile dressing. Canelo Jerome PA-C, was present for the entire procedure. He was critical for patient positioning, prepping, draping, retraction exposure, wound closure and application of sterile dressing. I attest to the content of the Intraoperative Record and any orders documented therein. Any exceptions are noted below.
[2019-05-30] MEDS ORDERED: fentaNYL citrate 100 MCG/2 ML VIAL IV PRN (14:00)
[2019-05-30] MEDS ORDERED: ePHEDrine sulfate 50 MG/ML AMP IV PRN (14:00)
[2019-05-30] MEDS ORDERED: ATROPINE SULFATE 0.1 MG/ML 10ML SYR IV PRN (14:00)
[2019-05-30] MEDS ORDERED: ONDANSETRON INJ 2 MG/ML 2 ML VIAL IV PRN ×3 (14:00→20:22)
[2019-05-30] MEDS ORDERED: OXYCODONE/ACETAMINOPHEN 5mg/325mg TAB PO PRN (14:03)
--- NOTE | 2019-05-30 14:53 | Anesthesiology Progress Note ---
Date of Service May 30, 2019 Anesthesia Post Procedure Vital Signs Vital Signs: Temp Pulse Pulse Resp BP Pulse Ox 05/30/19 14:40 55 L 12 128/68 100 05/30/19 14:30 61 14 153/64 H 100 05/30/19 14:20 55 L 12 131/65 99 05/30/19 14:10 54 L 12 142/62 H 99 05/30/19 14:07 36.2 C L 59 L 18 159/80 H 99 05/30/19 10:47 36.8 C 93 H 20 129/70 97 Pain Intensity Right Shoulder: Pain Intensity: 4 Transfer of Care Handoff Completed per policy Notes Mental Status: alert / awake / arousable Patient Amnestic to Procedure: Yes Nausea / Vomiting: adequately controlled Pain: adequately controlled Airway Patency, RR, SpO2: stable & adequate BP & HR: stable & adequate Hydration State: stable & adequate Neuraxial Anesthesia: was administered and sensory block is resolving Anesthetic Complications: no major complications apparent
[2019-05-30] MEDS ORDERED: PROMETHAZINE HCL 6.25 MG in SODIUM CHLORIDE 0.9% 50 ML IV STA ×2 (15:03→18:27)
--- NOTE | 2019-05-30 16:17 | Anesthesiology Progress Note ---
Date of Service May 30, 2019 Anesthesia Post Procedure Vital Signs Vital Signs: Temp Pulse Pulse Resp BP Pulse Ox 05/30/19 16:00 37.0 C 71 14 146/72 H 97 05/30/19 15:50 58 L 12 139/64 97 05/30/19 15:40 62 14 140/66 93 05/30/19 15:30 58 L 12 122/77 96 05/30/19 15:20 52 L 14 113/76 100 05/30/19 15:10 58 L 14 168/92 H 100 05/30/19 15:00 36.3 C L 58 L 14 157/86 H 100 05/30/19 14:50 36.3 C L 54 L 12 127/70 100 05/30/19 14:40 55 L 12 128/68 100 05/30/19 14:30 61 14 153/64 H 100 05/30/19 14:20 55 L 12 131/65 99 05/30/19 14:10 54 L 12 142/62 H 99 05/30/19 14:07 36.2 C L 59 L 18 159/80 H 99 05/30/19 10:47 36.8 C 93 H 20 129/70 97 Pain Intensity Right Shoulder: Pain Intensity: 4 Transfer of Care Handoff Completed per policy Notes Mental Status: alert / awake / arousable and participated in evaluation Patient Amnestic to Procedure: Yes Nausea / Vomiting: improving with treatment Pain: adequately controlled Airway Patency, RR, SpO2: stable & adequate BP & HR: stable & adequate Hydration State: stable & adequate Anesthetic Complications: no major complications apparent and Pt Satisfied with anesthetic care
[2019-05-30] MEDS ORDERED: ACETAMINOPHEN 325 MG TAB PO PRN (20:22)
[2019-05-30] MEDS ORDERED: INSULIN ASPART PER UNIT SQ SCH (20:22)
[2019-05-30] MEDS ORDERED: CALCIUM CARBONATE SIMETHICONE PO PRN (20:22)
[2019-05-30] MEDS ORDERED: TRAMADOL HCL 50 MG TABLET PO PRN (20:22)
[2019-05-30] MEDS ORDERED: DICYCLOMINE HCL 10 MG CAP PO PRN (20:22)
[2019-05-30] MEDS ORDERED: METOCLOPRAMIDE HCL INJ 5 MG/ML 2 ML VIAL IV PRN (20:22)
[2019-05-30] MEDS ORDERED: RALOXIFENE HCL 60 MG TAB PO SCH (21:00)
[2019-05-30] MEDS ORDERED: diazePAM 5 MG TABLET PO PRN (21:00)
[2019-05-30] MEDS ORDERED: DEXTROSE 50% 50 ML SYRINGE IV PRN (21:15)
[2019-05-30] MEDS ORDERED: CARBOHYDRATES FOR HYPOGLYCEMIA PO PRN (21:15)
[2019-05-30] MEDS ORDERED: GLUCOSE 40% GEL 15 GM TUBE PO PRN (21:15)
[2019-05-30] MEDS ORDERED: GLUCAGON FOR INJ 1 MG VIAL SQ PRN (21:15)
[2019-05-30] MEDS ORDERED: GLUCOSE 10 TABS/TUBE PO PRN (21:15)
[2019-05-30] MEDS: ATORVASTATIN 10 MG TAB PO SCH ×2 (21:46→21:54)
[2019-05-30] MEDS: diazePAM 5 MG TABLET PO SCH (21:52)
[2019-05-30] MEDS ORDERED: INSULIN ASPART 100 UNITS/ML VIAL SC PRN (22:00)
[2019-05-31] MEDS: diazePAM 5 MG TABLET PO SCH (08:02)
--- NOTE | 2019-05-31 08:28 | Anesthesiology Progress Note ---
Date of Service May 31, 2019 Anesthesia Post Procedure Vital Signs Vital Signs: Temp Pulse Pulse Pulse Resp BP Pulse Ox 05/31/19 07:35 36.7 C 73 16 109/54 L 97 05/31/19 03:03 36.6 C 66 16 110/71 96 05/30/19 23:25 36.8 C 76 16 131/72 98 05/30/19 22:02 95 05/30/19 22:00 36.3 C L 74 18 136/76 89 L 05/30/19 21:00 36.5 C 66 16 122/72 92 05/30/19 20:03 36.8 C 84 20 148/71 H 92 05/30/19 20:00 36.8 C 84 18 148/71 H 92 05/30/19 18:40 62 18 151/71 H 99 05/30/19 17:32 36.8 C 72 18 165/86 H 100 05/30/19 16:50 36.9 C 72 18 149/95 H 99 05/30/19 16:16 36.5 C 67 18 162/80 H 96 05/30/19 16:00 37.0 C 71 14 146/72 H 97 05/30/19 15:50 58 L 12 139/64 97 05/30/19 15:40 62 14 140/66 93 05/30/19 15:30 58 L 12 122/77 96 05/30/19 15:20 52 L 14 113/76 100 05/30/19 15:10 58 L 14 168/92 H 100 05/30/19 15:00 36.3 C L 58 L 14 157/86 H 100 05/30/19 14:50 36.3 C L 54 L 12 127/70 100 05/30/19 14:40 55 L 12 128/68 100 05/30/19 14:30 61 14 153/64 H 100 05/30/19 14:20 55 L 12 131/65 99 05/30/19 14:10 54 L 12 142/62 H 99 05/30/19 14:07 36.2 C L 59 L 18 159/80 H 99 05/30/19 10:47 36.8 C 93 H 20 129/70 97 Pain Intensity Right Shoulder: Pain Intensity: 4 Notes Mental Status: alert / awake / arousable and participated in evaluation Patient Amnestic to Procedure: Yes Nausea / Vomiting: adequately controlled Pain: adequately controlled Airway Patency, RR, SpO2: stable & adequate BP & HR: stable & adequate Hydration State: stable & adequate Anesthetic Complications: no major complications apparent and Pt Satisfied with anesthetic care
[2019-05-31] MEDS ORDERED: PANTOprazole 40 MG TAB PO SCH (09:00)
--- NOTE | 2019-05-31 09:34 | Orthopedic Progress Note ---
Date of Service May 31, 2019 Assessment & Plan (1) History of arthroscopy of right shoulder: Overall she is doing much better. Her nausea has subsided. She can be discharged home later this morning. She will follow-up with orthopedics in 2 weeks. Present on Admission?: Yes Subjective Emili was seen and examined at bedside this morning. Overall she is doing much better. Her nausea has subsided. She is feeling well and looking forward to going home. Physical Exam Musculoskeletal: On physical examination of the right shoulder, the dressing is clean and dry. She is wearing her sling as instructed. Results & Data ([facility]) Vital Signs (Past 12 Hours) Vital Signs Temp Pulse Resp BP Pulse Ox 05/31/19 07:35 36.7 C 73 16 109/54 L 97 05/31/19 03:03 36.6 C 66 16 110/71 96 05/30/19 23:25 36.8 C 76 16 131/72 98 05/30/19 22:02 95 05/30/19 22:00 36.3 C L 74 18 136/76 89 L PG Care Time/CCT Total # of Minutes Spent Total Time Spent with Patient: Total time spent is greater than 50% in coordination of care (as documented) at patient's floor/unit and/or counseling patient: Coding Level of Care Code None Diagnoses History of arthroscopy of right shoulder Z98.890
--- NOTE | 2019-05-31 09:35 | Discharge Summary ---
Date of Service May 31, 2019 Admission HPI Per Admitting Provider Emili is a pleasant 68-year-old female who is been dealing with an 8-month history of increasing pain and tightness of the right shoulder. She initially fell out of a tree while looking at a birds nest in August. That is when she noticed her shoulder pain starting. It has become very tight and painful over the past 8 months. MRI shows some mild to moderate arthritis but no evidence of rotator cuff tear. Clinically she examined like an adhesive capsulitis of the shoulder. After failing months of conservative treatment, she has elected to proceed with a right shoulder arthroscopy. Principal Diagnosis Right shoulder arthroscopy Discharge Data Allergies Allergy/AdvReac Type Severity Reaction Status Date / Time Penicillins Allergy Unknown Rash Verified 05/10/19 10:10 ketamine Allergy Hallucinati Verified 05/10/19 10:10 ng Sulfa (Sulfonamide AdvReac Unknown RASH,VOMITI Verified 05/10/19 10:10 Antibiotics) NG Procedures Performed Operation Date: 05/30/19 10:40 <No data on this case meets the specified criteria> Operation Date: 05/30/19 12:30 Actual Procedures p Right Shoulder Arthroscopy, Extensive Debridement, Lysis of Adhesions, Manipul ation Under Anesthesia(Right) - Canelo Ferrera DO Ordered Studies 05/30/19 05:00 US - OR guided needle placemen Routine Hospital Course (1) History of arthroscopy of right shoulder: On May 30, 2019 Emili arrived at [facility] and underwent a right shoulder capsular release without complication. Postoperatively she was placed in a sling and set to be discharged home. Unfortunately she was very nauseous in PACU. The gave her multiple medications but she was having difficulty recovering from the anesthesia. We decided to admit her overnight in the hospital for management of the nausea. The following day she was feeling much better. The nausea has subsided. She was able to eat breakfast and get up and ambulate. She was then discharged home. She will follow-up with orthopedics in 2 weeks. Total Time Total Time Spent Total Time Spent (In Minutes): 20 Discharge Plan Discharge Items Patient Disposition: Home - Home Health Services Reason For Visit: Right Shoulder Adhesive Capsulitis Discharge Diagnosis: same as above Activity: Per Instructions section Non-emergency contact: Surgeon Call non-emergency contact if: your temperature is above 101.5, your wound has increased redness and your wound has increased drainage Follow-up/Referrals: Hawa Vera DO [Primary Care Provider] - Diet: Regular Addtl Attending Provider Instructions: Shoulder Arthroscopy Discharge Instructions Activity and Therapy Recommendations: 1. The duration will be in your sling will be noted on your physical therapy p aperwork given after the surgery. You may remove your sling to shower and to dress, but otherwise, you should be in your sling at all times, including while sleeping 2. You may use your hand while in the sling 3. Physical Therapy should start about 3-5 days from your day of surgery. Therapy should be about twice a week and the duration will be listed on the script. We can discuss going to less therapy if co-pays are high. 4. Shoulders take time to heal and feel better. Doing twice as many exercises will not get you better twice as fast. The motion will come. Please be patient. 5. You can sleep in any position after the surgery as long as you are in your sling. Most people feel comfortable sleeping in a recliner, but you can sleep in a bed or on a couch if it is more comfortable. Medications: 1. Narcotic You will likely be sent home from the hospital with a prescription for the narcotic pain medication. Take it as needed. Side effects most commonly include nausea and constipation 2. Toradol You will likely be sent home with this anti-inflammatory. It is a post-surgical ibuprofen (NSAID). Take it for 5 days as prescribed. If you have any side effects, such as stomach upset (not nausea), then stop immediately 3. Resume previous home medications unless otherwise instructed Dressing Care: There will be a plastic dressing on your shoulder. Leave the dressing on for 48 hours. After 48 hours you may remove the dressing and leave the stitches open to air or cover them with band-aids if they are getting caught on your clothing. Showering: You may shower 48 hours after the surgery. Let the soapy shower water run over the stitches and pat them dry. Do not scrub or soak the incisions. Things To Watch For: 1. Drainage from the incision site that occurs more than one week after your surgery. 2. Increased redness at the incision site. 3. Fever above 102 degrees Fahrenheit. 4. Unusual chest pain or shortness of breath. 5. Call [facility] at with any of the above problems Follow-Up Visit: Follow-up with Dr. Ferrera 2 weeks after your day of surgery. An appointment was probably scheduled when you signed-up for surgery in the office. If you have any questions call Pending Studies at Discharge: No Stand-Alone Forms: Anesthesia/Sedation, Adult, [facility], Smoking Cessation Medications and DC Order Prescriptions: New ketorolac 10 mg tablet 10 mg PO Q8H 5 Days Qty: 15 RF: 0 oxycodone-acetaminophen [Percocet] 5-325 mg tablet 1 tab PO Q6H PRN (Reason: pain) Qty: 20 RF: 0 Continued pantoprazole 40 mg tablet,delayed release (DR/EC) 40 mg PO 3XWK RF: 0 atorvastatin 10 mg tablet 10 mg PO WK RF: 0 dicyclomine 10 mg capsule 10 mg PO DAILY PRN (Reason: Stomach Upset) RF: 0 raloxifene [Evista] 60 mg tablet 60 mg PO PM RF: 0 diazepam 5 mg tablet 2.5 mg PO BID RF: 0 omega-3 fatty acids 1,000 mg capsule 1,000 mg PO PM RF: 0 cyanocobalamin (vitamin B-12) 1,000 mcg/mL solution 1,000 mcg SQ MONTHLY RF: 0 Novolog U-100 Insulin aspart 100 unit/mL solution 1 unit SQ DIRECTED RF: 0 Maalox Advanced 1,000-60 mg tablet,chewable 1 tab PO QID PRN (Reason: Indigestion) RF: 0 carisoprodol [Soma] 250 mg Tablet 250 mg PO DIRECTED PRN (Reason: MUSCLE SPASMS) RF: 0 diazepam 5 mg Tablet 5 mg PO HS PRN (Reason: Anxiety) RF: 0 Discontinued hydrocodone-acetaminophen 5-325 mg tablet 0.5 tab PO BID PRN (Reason: pain) RF: 0 diclofenac sodium 75 mg tablet,delayed release (DR/EC) 75 mg PO BID PRN (Reason: Muscle Pain) RF: 0 Discharge Orders: Discharge Order (Routine); Ordered 05/31/19 Ordered By: Canelo Michelle/Other Patient Handouts: Surgery Prevent DVT After Admission Data Admit Date/Time: 05/30/19 19:14 Attending Provider: Canelo Ferrera Admit Provider: Canelo Ferrera Primary Care Provider: Hawa Vera Other Interventions: Discharge Summary Assessment (RN) Last Done: 05/30/19 19:25 Coding Level of Care Code D/C Day Management <30 mins Diagnoses History of arthroscopy of right shoulder Z98.890
[2019-05-31] MEDS ORDERED: NovoLOG INSULIN PUMP SCH (22:00)
== END 2019-05-31 11:47 | disposition home health service (06) ==
LOC: ASU 09:55 → 3W 09:55 → OBSVTOIN 19:14 → INTOOBSV 19:14